=== PATIENT | female | born 2000 | race Caucasian/White ===

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

== ENCOUNTER 2019-01-14 22:06 | Emergency (ER) | payer MEDICAID ==
[~2019-01-14] VITALS: Ht 167.7 cm; Wt 83.5 kg
[2019-01-14] MEDS ORDERED: KETOROLAC 30 MG/ML VIAL IVP STA (22:27)
[2019-01-14 22:55] LABS: BILIRUBIN,URINE NEGATIVE (NEGATIVE); CLARITY,URINE SL CLOUDY; COLOR,URINE YELLOW; GLUCOSE, URINE (UA) NEGATIVE (NEGATIVE); KETONES,URINE NEGATIVE (NEGATIVE); LEUKOCYTE ESTERASE ,URINE NEGATIVE (NEGATIVE); NITRITE,URINE NEGATIVE (NEGATIVE); PROTEIN,URINE NEGATIVE (NEGATIVE)
[2019-01-14 23:03] LABS: BASOPHILS % (AUTO) 0 % (0-10); EOSINOPHILS # (AUTO) 0.1 10^3/uL (0.0-0.3); EOSINOPHILS % (AUTO) 3 % (0-10); HEMATOCRIT 38 % (35-52); HEMOGLOBIN 13.2 G/DL (11.5-16.0); LYMPHOCYTES # (AUTO) 1.7 X 10^3 (1.0-4.0); LYMPHOCYTES % (AUTO) 33 % (12-44); MEAN CORPUSCULAR HEMOGLOBIN 28 PG (25-34); MEAN CORPUSCULAR HGB CONC 35 G/DL (32-36); MEAN CORPUSCULAR VOLUME 81 FL (80-99); MEAN PLATELET VOLUME 10.1 FL (7.4-10.4); MONOCYTES # (AUTO) 0.3 X 10^3 (0.0-1.0); MONOCYTES % (AUTO) 7 % (0-12); NEUTROPHILS % (AUTO) 58 % (42-75); PLATELET COUNT 230 10^3/uL (130-400); RED CELL DISTRIBUTION WIDTH 13.6 % (10.0-14.5); WHITE BLOOD COUNT 5.1 10^3/uL (4.3-11.0)
[2019-01-14 23:21] LABS: ALANINE AMINOTRANSFERASE 14 U/L (0-55); ALBUMIN 4.5 GM/DL (3.2-4.5); ALKALINE PHOSPHATASE 88 U/L (40-136); BILIRUBIN,TOTAL 0.2 MG/DL (0.1-1.0); BUN/CREATININE RATIO 10; CALCIUM 9.6 MG/DL (8.5-10.1); CARBON DIOXIDE 24 MMOL/L (21-32); CHLORIDE 107 MMOL/L (98-107); CREATININE SERUM 0.69 MG/DL (0.60-1.30); GFR ESTIMATED > 60; GLUCOSE 81 MG/DL (70-105); POTASSIUM 4.1 MMOL/L (3.6-5.0); SODIUM 143 MMOL/L (135-145); TOTAL PROTEIN 7.7 GM/DL (6.4-8.2)
[2019-01-14 23:23] LABS: RBC,URINE RARE /HPF
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
[2019-01-14 23:24] LABS: BACTERIA,URINE MODERATE /HPF; SQUAMOUS EPITHELIAL CELL,UR 0-2 /HPF
== END 2019-01-14 23:51 | disposition home or self-care (01) ==
LOC: EDUNIT# 22:06 → ER 22:08
DX: N93.9 Abnormal uterine and vaginal bleeding, unspecified (principal); J45.909 Unspecified asthma, uncomplicated; G40.909 Epilepsy, unspecified, not intractable, without status epilepticus; F41.9 Anxiety disorder, unspecified; F31.9 Bipolar disorder, unspecified; K21.9 Gastro-esophageal reflux disease without esophagitis; F17.200 Nicotine dependence, unspecified, uncomplicated; Z87.440 Personal history of urinary (tract) infections; Z88.0 Allergy status to penicillin; Z88.1 Allergy status to other antibiotic agents; Z88.6 Allergy status to analgesic agent; Z88.5 Allergy status to narcotic agent; Z88.8 Allergy status to other drugs, medicaments and biological substances; Z82.49 Family history of ischemic heart disease and other diseases of the circulatory system
CPT/HCPCS: 36415; 80053; 81000; 84703; 85025; 87077; 87088; 87186

== ENCOUNTER 2019-02-04 05:30 | Outpatient (CLI) | payer MEDICAID ==
[~2019-02-04] VITALS: Ht 170 cm; Wt 81.0 kg
[~2019-02-04 05:30] MED LIST changes: -ACET-77 PO; +ACET-78 PO
[2019-02-04] MEDS ORDERED: NORG1TAB14 PO (15:49)
== END 2019-02-04 15:59 | disposition home or self-care (01) ==
LOC: PREOP 05:30
PROVIDERS: ATTEND Otolaryngology Otolaryngology/Facial Plastic Surgery
DX: Z01.818 Encounter for other preprocedural examination (principal)

== ENCOUNTER 2019-02-15 07:26 | Day surgery (SDC) | payer MEDICAID ==
[2019-02-15] VITALS (10 sets, daily range): BP systolic 106–125; BP diastolic 68–85
[~2019-02-15] VITALS: Ht 170.2 cm; Wt 81.8 kg
[~2019-02-15 07:26] MED LIST changes: +ACET-77 PO; -ACET-78 PO; +NORG1TAB14 PO
[2019-02-15 08:07] LABS: BASOPHILS % (AUTO) 0 % (0-10); EOSINOPHILS # (AUTO) 0.1 10^3/uL (0.0-0.3); EOSINOPHILS % (AUTO) 2 % (0-10); HEMATOCRIT 35 % (35-52); HEMOGLOBIN 12.3 G/DL (11.5-16.0); LYMPHOCYTES # (AUTO) 1.8 X 10^3 (1.0-4.0); LYMPHOCYTES % (AUTO) 36 % (12-44); MEAN CORPUSCULAR HEMOGLOBIN 29 PG (25-34); MEAN CORPUSCULAR HGB CONC 35 G/DL (32-36); MEAN CORPUSCULAR VOLUME 82 FL (80-99); MEAN PLATELET VOLUME 10.6 FL (7.4-10.4); MONOCYTES # (AUTO) 0.3 X 10^3 (0.0-1.0); MONOCYTES % (AUTO) 6 % (0-12); NEUTROPHILS # (AUTO) 2.8 X 10^3 (1.8-7.8); NEUTROPHILS % (AUTO) 56 % (42-75); PLATELET COUNT 185 10^3/uL (130-400); RED CELL DISTRIBUTION WIDTH 13.3 % (10.0-14.5); WHITE BLOOD COUNT 5.1 10^3/uL (4.3-11.0)
[2019-02-15] MEDS ORDERED: LACTATED RINGERS 1,000 ML IV PRN (08:17)
[2019-02-15] MEDS ORDERED: SEVOFLURANE (ULTANE) 15 ML INHAL SOLN ONE ×3 (09:40→09:44)
[2019-02-15] MEDS ORDERED: MIDAZOLAM 2 MG/2 ML (VERSED) VIAL ONE (09:40)
[2019-02-15] MEDS ORDERED: DEXAMETHASONE 10 MG/ML (DECADRON) 1 ML VIAL ONE (09:40)
[2019-02-15] MEDS ORDERED: ONDANSETRON 4 MG/2 ML (SDV) Z0FRAN ONE (09:40)
[2019-02-15] MEDS ORDERED: fentaNYL INJECTION 100 MCG/2 ML AMP ONE (09:40)
[2019-02-15] MEDS ORDERED: proPOfol 200 MG/20 ML (DIPRIVAN) VIAL IV ONE (09:40)
--- NOTE | 2019-02-15 09:42 | Progress Note-Pre Operative ---
Pre-Operative Progress Note H&P Reviewed The H&P was reviewed, patient examined and no changes noted. Date Seen by Provider: Feb 15, 2019 Time Seen by Provider: : Date H&P Reviewed: Feb 15, 2019 Time H&P Reviewed: :30 Pre-Operative Diagnosis: Tonsillar Hypertrophy, Left MELL, possible right TERRI PARDO MD Feb 15, 2019 09:42
[2019-02-15] MEDS ORDERED: ROCURONIUM 50 MG/5 ML (ZEMURON) VIAL IV ONE (09:44)
[2019-02-15] MEDS ORDERED: GLYCOPYRROLATE 0.2 MG/ML (ROBINUL) 2 ML VIAL ONE (10:17)
[2019-02-15] MEDS ORDERED: NEOSTIGMINE 3 MG/3 ML VIAL ONE (10:17)
[2019-02-15] MEDS ORDERED: NS IV 1000 ML 1,000 ML IV SCH (10:29)
--- NOTE | 2019-02-15 10:29 | Progress Note-Post Operative ---
Post-Operative Progess Note Surgeon (s)/Patient Partner (s) Surgeon TERRI PARDO MD Patient Partner n/a Pre-Operative Diagnosis Tonsillar Hypertrophy, Left MELL, possible right Post-Operative Diagnosis same Post-Op Procedure Note Date of Procedure: Feb 15, 2019 Name of Procedure Performed: T/A, BMT Description & Findings Description and Findings: n/a Anesthesia Type get Estimated Blood Loss minimal Packing none. Specimen(s) collected/removed tonsils TERRI PARDO MD Feb 15, 2019 10:29
[2019-02-15] MEDS ORDERED: oxyCODONE 5 MG/5 ML ORAL SOLN (roxiCODONE) 5 ML UDC PO PRN (10:30)
[2019-02-15] MEDS ORDERED: APAP 325 MG/10.15 ML LIQ (TYLENOL) UDC PO PRN (10:30)
[2019-02-15] MEDS ORDERED: morphine INJ 10 MG/ML 1ML (SYR OR VIAL) IVP ONE (10:45)
[2019-02-15] MEDS ORDERED: ONDANSETRON 4 MG/2 ML (SDV) Z0FRAN IVP PRN (10:45)
[2019-02-15] MEDS ORDERED: HYDROmorphone 2 MG/ML VIAL (DILAUDID) IV ONE (10:45)
[2019-02-15] MEDS ORDERED: RT-ALBUTEROL SULF 2.5 MG/3 ML PRE-MIX VIAL INH ONE (10:45)
--- NOTE | 2019-02-15 11:30 | NUR ---
PT GIVEN 650MG PO OF TYLENOL DUE TO FEELING "ON THE VERGE OF NAUSEATED". PT DID NOT WANT TO TAKE FULL DOSAGE IN CASE VOMITING THEN THEN ABLE TO TAKE MORE.
[2019-02-15] MEDS ORDERED: TETRACAINESUCKERS MT (12:21)
[2019-02-15] MEDS ORDERED: CIPR5DRO EACH EAR (12:21)
[2019-02-15] MEDS ORDERED: DEXAINTSOL PO (12:21)
[2019-02-15] MEDS ORDERED: AZIT200S PO (12:26)
[2019-02-15] MEDS ORDERED: OXYC5SOL19 PO (12:26)
--- NOTE | 2019-02-15 15:20 | Anesthesia-General Post-Op ---
General Patient Condition Mental Status/LOC: Same as Preop Cardiovascular: Satisfactory Nausea/Vomiting: Absent Respiratory: Satisfactory Pain: Controlled Complications: Absent Post Op Complications Complications None Follow Up Care/Instructions Patient Instructions None needed. Anesthesia/Patient Condition Patient Condition Patient was seen after the procedure and she was doing well, no complaints, stable vital signs, no apparent adverse anesthesia problems. PEDRO LUIS MILES DO Feb 15, 2019 15:20
== END 2019-02-15 13:30 | disposition home or self-care (01) ==
LOC: SDC 07:26
PROVIDERS: ATTEND Otolaryngology Otolaryngology/Facial Plastic Surgery
DX: H65.23 Chronic serous otitis media, bilateral (principal); J35.3 Hypertrophy of tonsils with hypertrophy of adenoids; J03.91 Acute recurrent tonsillitis, unspecified; F32.9 Major depressive disorder, single episode, unspecified; F41.9 Anxiety disorder, unspecified; G43.909 Migraine, unspecified, not intractable, without status migrainosus; J45.909 Unspecified asthma, uncomplicated; Z88.0 Allergy status to penicillin; Z88.6 Allergy status to analgesic agent; Z88.5 Allergy status to narcotic agent; Z88.1 Allergy status to other antibiotic agents; Z88.8 Allergy status to other drugs, medicaments and biological substances; Z88.3 Allergy status to other anti-infective agents; Z83.3 Family history of diabetes mellitus; Z82.49 Family history of ischemic heart disease and other diseases of the circulatory system; Z87.891 Personal history of nicotine dependence; Z79.899 Other long term (current) drug therapy; Z90.49 Acquired absence of other specified parts of digestive tract
CPT/HCPCS: 36415; 84703; 85025; 87081

== ENCOUNTER 2019-02-23 22:05 | Emergency (ER) | payer MEDICAID ==
[~2019-02-23] VITALS: Ht 167.7 cm; Wt 78.0 kg
[~2019-02-23 22:05] MED LIST changes: +AZIT200S PO; +DEXAINTSOL PO; +OXYC5SOL19 PO; +TETRACAINESUCKERS MT
[2019-02-23] MEDS ORDERED: ONDANSETRON 4 MG (ZOFRAN) ORAL DISSOLVE TAB SL ONE (22:30)
[2019-02-23] MEDS ORDERED: NYSTATIN ORAL SUSP 5 ML UDC PO ONE (22:30)
[2019-02-23] MEDS ORDERED: NYST1000 PO (22:55)
--- NOTE | 2019-02-23 22:55 | ED EENT ---
History of Present Illness General Chief Complaint: Oral/Throat Problems Stated Complaint: POST OP BLEEDING - TONSIL REMOVAL 02/15 Nursing Triage Note: c/o post op tonsillectomy bleeding. no bleeding at this time. Source: patient Exam Limitations: no limitations History of Present Illness Date Seen by Provider: Feb 23, 2019 Time Seen by Provider: 22:13 Initial Comments This 18-year-old young lady presents to the emergency room with an episode of vomiting with a small amount of blood after having tonsillectomy by Dr. Velasquez February 15. She also has complained of throat burning and difficulty eating. She has lost a significant amount of weight since tonsillectomy. She has no active bleeding at this time. She has thrush on her cheeks, tongue, and throat. Patient reports compliance with her antibiotics and steroids after surgery. Allergies and Home Medications Allergies Coded Allergies: Penicillins (Verified Allergy, Severe, anaphylactic, 01/14/19) amoxicillin (Verified Allergy, Severe, anaphalytic, 01/14/19) cephalexin (Verified Allergy, Severe, anaphylatic , 01/14/19) cetirizine (Verified Allergy, Severe, seizures, 02/04/19) codeine (Verified Allergy, Severe, vomitting, chest pain, numbness, blurry vision, SOB, 02/04/19) divalproex sodium (Verified Allergy, Severe, Facial drooping, drooling, 02/04/19) fexofenadine (Verified Allergy, Severe, SEIZURES, 01/14/19) loratadine (Verified Allergy, Severe, seizures, 02/04/19) phenobarbital (Verified Allergy, Severe, Rash, vomitting, Seizures, 02/04/19) aspirin (Verified Allergy, Mild, hives, rash, 02/04/19) carbamazepine (Verified Allergy, Mild, hyperactivity, 02/04/19) cefaclor (Verified Allergy, Mild, vomitting, 02/04/19) povidone-iodine (Verified Allergy, Mild, rash, hives, 02/04/19) Home Medications Albuterol Sulfate 1 Puff Puff, 2 PUFF IH Q4H PRN for SHORTNESS OF BREATH, (Reported) Azithromycin 200 Mg/5 Ml Susp.recon, 200 MG PO DAILY Prescribed by: RODNEY CLARKE on 02/15/19 1226 Ciprofloxacin HCl 5 Ml Drops, 3 DROPS EACH EAR BID 3 Drops Each Ear Prescribed by: RODNEY CLARKE on 02/15/19 1221 Dexamethasone 1 Mg/1 Ml Amina, 2 TSP PO DAILY PRN for PAIN Mix 4MG/2.5CC water Prescribed by: RODNEY CLARKE on 02/15/19 1221 Norgestimate-Ethinyl Estradiol 1 Each Tablet, 1 EACH PO DAILY, (Reported) Nystatin 100,000 Unit/1 Ml Oral.susp, 5 ML PO Q6H Swish for one minute before swallowing. Continue use 48 hours after symptoms resolve. Prescribed by: FARHAD MIRAMONTES on 02/23/19 2255 Ondansetron 4 Mg Tab.rapdis, 4 MG SL Q4H Prescribed by: FARHAD MIRAMONTES on 02/23/19 2300 Oxcarbazepine 600 Mg Tablet, 600 MG PO BID, (Reported) Oxycodone HCl 5 Mg/5 Ml Solution, 1-2 TSP PO Q4H PRN for PAIN-MODERATE (5-7) Prescribed by: RODNEY CLARKE on 02/15/19 1226 Tetracaine Sucker Ea, 1 EA MT UD PRN for PAIN Tetracain Suckers These suckers are custom made and require a prescription. Moisten the sucker first and then suck on it gently as far back in the mouth as possible for 2-3 days. You can repeadt it in about an hour. This will take the edge off but not completely numb the throat. Prescribed by: RODNEY CLARKE on 02/15/19 1221 Patient Home Medication List Home Medication List Reviewed: Yes Review of Systems Review of Systems Constitutional: see HPI, weight loss Eyes: No Symptoms Reported Ears: No Symptoms Reported Nose: no symptoms reported Mouth: see HPI Throat: see HPI Respiratory: no symptoms reported Cardiovascular: no symptoms reported Gastrointestinal: see HPI : No Musculoskeletal: no symptoms reported Skin: no symptoms reported Neurological: No Symptoms Reported Hematologic/Lymphatic: No Symptoms Reported Past Lsoqjea-Acuijm-Diwoyg Hx Patient Social History Alcohol Use: Denies Use Recreational Drug Use: No Smoking Status: Current Everyday Smoker Type Used: Cigarettes 2nd Hand Smoke Exposure: Yes Recent Foreign Travel: No Contact w/Someone Who Travel: No Recent Infectious Disease Expo: No Recent Hopitalizations: No Physical Abuse: No Sexual Abuse: No Mistreated: No Fear: No Immunizations Up To Date Tetanus Booster (TDap): Unknown PED Vaccines UTD: Yes Seasonal Allergies Seasonal Allergies: No Past Medical History Surgeries: Yes (BMT) Adenoidectomy, Gallbladder, Tonsillectomy Respiratory: Yes Asthma Cardiac: Yes Irregular Heartbeat Neurological: Yes Headaches /Migraines, Seizure Disorder Reproductive Disorders: No Female Reproductive Disorders: Menstrual Problems Sexually Transmitted Disease: No HIV/AIDS: No Genitourinary: No UTI-Chronic Gastrointestinal: Yes Chronic Diarrhea Musculoskeletal: Yes Back Injury, Chronic Back Pain Endocrine: No HEENT: Yes Chronic Ear Infection, Tonsilitis Loss of Vision: Denies Hearing Impairment: Denies Cancer: No Psychosocial: Yes Anxiety, Bipolar, Depression Integumentary: Yes Eczema Blood Disorders: No Adverse Reaction/Blood Tranf: No Family Medical History Arthritis 19 MOTHER Asthma 19 MOTHER FH: diverticulitis 19 MOTHER FHx: supraventricular tachycardia 19 MOTHER Hypertension 19 MOTHER Physical Exam Vital Signs Vital Signs - First Documented 02/23/19 02/23/19 22:10 22:55 Temp 36.3 Pulse 99 Resp 18 B/P (MAP) 99/81 Pulse Ox 99 O2 Delivery Room Air Height, Weight, BMI Height: 5'7.00" Weight: 153lbs. 8.0oz. 69.233077sw; 27.00 BMI Method:Stated General Appearance: WD/WN, no apparent distress Ears: bilateral ear auricle normal, bilateral ear canal normal, bilateral ear TM normal Nose: normal inspection Mouth/Throat: other (typical postoperative appearance of the pharynx. There are patches of thrush on the cheeks, tongue, and throat. No active bleeding) Neck: normal inspection Cardiovascular: regular rate, rhythm, no edema, no murmur Respiratory: lungs clear, normal breath sounds, no respiratory distress Neurologic/Psychiatric: time motion analyst II-XII nml as tested, no motor/sensory deficits, alert, normal mood/affect, oriented x 3 Skin: normal color, warm/dry Progress/Results/Core Measures Results/Orders My Orders Orders - FARHAD GILMORE MD Ondansetron Oral Dissolve Tab (Zofran (02/23/19 22:30) Nystatin Oral Suspension (Mycostatin O (02/23/19 22:30) Medications Given in ED Current Medications Medications Dose Ordered Sig/She Route Start Time Stop Time Status Last Admin Dose Admin Nystatin 5 ml ONCE ONCE PO 02/23/19 22:30 02/23/19 22:31 DC 02/23/19 22:23 5 ML Ondansetron HCl 8 mg ONCE ONCE SL 02/23/19 22:30 02/23/19 22:31 DC 02/23/19 22:23 8 MG Vital Signs/I&O 02/23/19 02/23/19 22:10 22:55 Temp 36.3 36.3 Pulse 99 99 Resp 18 18 B/P (MAP) 99/81 Pulse Ox 99 O2 Delivery Room Air Room Air Progress Progress Note : Progress Note Patient received a dose of Zofran and a nystatin swish and swallow. She was already feeling much improved by the time of discharge. Departure Impression Primary Impression: Thrush Additional Impression: Vomiting Qualified Codes: R11.11 - Vomiting without nausea Disposition: HOME, SELF-CARE Condition: Improved Departure-Patient Inst. Decision time for Depature: 22:51 Referrals: [facility] (PCP) Primary Care Physician YAMILET WALKER APRN (Family) Primary Care Physician Patient Instructions: Thrush Add. Discharge Instructions: Follow postoperative instructions provided by Dr. Velasquez. Use the nystatin swish and swallow as prescribed. Continue until 48 hours after symptoms of thrush have resolved. Sanitize or replace your toothbrush and any other oral instruments before your last dose of nystatin to help prevent reinfection. Contact Dr. Velasquez with any further problems or concerns. All discharge instructions reviewed with patient and/or family. Voiced understanding. Scripts Ondansetron (Ondansetron Odt) 4 Mg Tab.rapdis 4 MG SL Q4H, #10 TAB Prov: FARHAD GILMORE MD 02/23/19 Nystatin (Nystatin) 100,000 Unit/1 Ml Oral.susp 5 ML PO Q6H, #120 ML Swish for one minute before swallowing. Continue use 48 hours after symptoms resolve. Prov: FARHAD GILMORE MD 02/23/19 Copy Copies To 1: TERRI VELASQUEZ MD, JOSHUA T MD Feb 23, 2019 22:55
[2019-02-23] MEDS ORDERED: ONDA4TAB11 SL (23:00)
== END 2019-02-23 22:56 | disposition home or self-care (01) ==
LOC: EDUNIT# 22:05 → ER 22:08
DX: B37.89 Other sites of candidiasis (principal); R11.10 Vomiting, unspecified; J45.909 Unspecified asthma, uncomplicated; G43.909 Migraine, unspecified, not intractable, without status migrainosus; G40.909 Epilepsy, unspecified, not intractable, without status epilepticus; F41.9 Anxiety disorder, unspecified; F17.210 Nicotine dependence, cigarettes, uncomplicated; Z87.440 Personal history of urinary (tract) infections; Z90.89 Acquired absence of other organs; Z90.49 Acquired absence of other specified parts of digestive tract; Z88.0 Allergy status to penicillin; Z88.1 Allergy status to other antibiotic agents; Z88.5 Allergy status to narcotic agent; Z88.6 Allergy status to analgesic agent; Z88.8 Allergy status to other drugs, medicaments and biological substances; Z82.49 Family history of ischemic heart disease and other diseases of the circulatory system
CPT/HCPCS: 99282

== ENCOUNTER 2019-04-03 04:30 | Emergency (ER) | payer MEDICAID ==
[~2019-04-03] VITALS: Ht 170 cm; Wt 76.9 kg
[~2019-04-03 04:30] MED LIST changes: -ACET-77 PO; +ACET-78 PO; +NYST1000 PO; +ONDA4TAB11 SL
[2019-04-03] MEDS ORDERED: TRAM-42 PO (05:33)
--- NOTE | 2019-04-03 05:33 | ED Upper Extremity ---
General Chief Complaint: Upper Extremity Stated Complaint: RT WRIST PAIN Nursing Triage Note: AMBULATORY TO ED ROOM 6 WITH C/O RIGHT WRIST PAIN AFTER SLIPPING ON ICE ON METAL GRATE ON ROAD WHILE CROSSING STRE[address]. Source: patient History of Present Illness Date Seen by Provider: Apr 03, 2019 Time Seen by Provider: 04:43 Initial Comments PT ARRIVES WITH 2 MALES C/O RIGHT WRIST PAIN STATES SHE WAS RUNNING ACROSS THE STREET FROM [facility] TO [employer], AND SLIPPED ON THE ICE AND LANDED ON OUTSTRETCHED RIGHT HAND OCCURRED AT 0330 THIS AM--STATES SHE "DECIDED TO GET SOME FOOD" ( SNOW, ICE, FREEZING RAIN OUTSIDE ) DID NOT HIT HEAD AND NO OTHER INJURIES NO PARESTHESIAS OR MOTOR DEFICITS PT IS RIGHT HANDED NO PRIOR INJURIES TO THIS WRIST LMP 3 WEEKS AGO, NORMAL. ON OCP'S. NO MISSED DOSES PCP: [facility] Allergies and Home Medications Allergies Coded Allergies: Penicillins (Verified Allergy, Severe, anaphylactic, 01/14/19) amoxicillin (Verified Allergy, Severe, anaphalytic, 01/14/19) cephalexin (Verified Allergy, Severe, anaphylatic , 01/14/19) cetirizine (Verified Allergy, Severe, seizures, 02/04/19) codeine (Verified Allergy, Severe, vomitting, chest pain, numbness, blurry vision, SOB, 02/04/19) divalproex sodium (Verified Allergy, Severe, Facial drooping, drooling, 02/04/19) fexofenadine (Verified Allergy, Severe, SEIZURES, 01/14/19) loratadine (Verified Allergy, Severe, seizures, 02/04/19) phenobarbital (Verified Allergy, Severe, Rash, vomitting, Seizures, 02/04/19) aspirin (Verified Allergy, Mild, hives, rash, 02/04/19) carbamazepine (Verified Allergy, Mild, hyperactivity, 02/04/19) cefaclor (Verified Allergy, Mild, vomitting, 02/04/19) povidone-iodine (Verified Allergy, Mild, rash, hives, 02/04/19) Home Medications Albuterol Sulfate 1 Puff Puff, 2 PUFF IH Q4H PRN for SHORTNESS OF BREATH, (Reported) Azithromycin 200 Mg/5 Ml Susp.recon, 200 MG PO DAILY Prescribed by: RODNEY CLARKE on 02/15/19 1226 Ciprofloxacin HCl 5 Ml Drops, 3 DROPS EACH EAR BID 3 Drops Each Ear Prescribed by: RODNEY CLARKE on 02/15/19 1221 Dexamethasone 1 Mg/1 Ml Amina, 2 TSP PO DAILY PRN for PAIN Mix 4MG/2.5CC water Prescribed by: RODNEY CLARKE on 02/15/19 1221 Norgestimate-Ethinyl Estradiol 1 Each Tablet, 1 EACH PO DAILY, (Reported) Nystatin 100,000 Unit/1 Ml Oral.susp, 5 ML PO Q6H Swish for one minute before swallowing. Continue use 48 hours after symptoms resolve. Prescribed by: FARHAD MIRAMONTES on 02/23/19 2255 Ondansetron 4 Mg Tab.rapdis, 4 MG SL Q4H Prescribed by: FARHAD MIRAMONTES on 02/23/19 2300 Oxcarbazepine 600 Mg Tablet, 600 MG PO BID, (Reported) Oxycodone HCl 5 Mg/5 Ml Solution, 1-2 TSP PO Q4H PRN for PAIN-MODERATE (5-7) Prescribed by: RODNEY CLARKE on 02/15/19 1226 Tetracaine Sucker Ea, 1 EA MT UD PRN for PAIN Tetracain Suckers These suckers are custom made and require a prescription. Moisten the sucker first and then suck on it gently as far back in the mouth as possible for 2-3 days. You can repeadt it in about an hour. This will take the edge off but not completely numb the throat. Prescribed by: RODNEY CLARKE on 02/15/19 1221 Tramadol HCl 50 Mg Tablet, 50 MG PO Q4H PRN for PAIN-MODERATE Prescribed by: DAVE THURMAN on 04/03/19 0558 Patient Home Medication List Home Medication List Reviewed: Yes Review of Systems Constitutional: no symptoms reported : No LMP: Mar 18, 2019 Control/STD Prophylaxis: BC Pills Musculoskeletal: see HPI Skin: no symptoms reported Psychiatric/Neurological: No Symptoms Reported Past Jowlvio-Aaeygd-Mrbuby Hx Patient Social History Alcohol Use: Denies Use Recreational Drug Use: No Smoking Status: Current Everyday Smoker Type Used: Cigarettes 2nd Hand Smoke Exposure: Yes Recent Foreign Travel: No Contact w/Someone Who Travel: No Recent Infectious Disease Expo: No Recent Hopitalizations: No Ebola Symptoms: Denies Symptoms Listed Physical Abuse: No Sexual Abuse: No Mistreated: No Fear: No Immunizations Up To Date Tetanus Booster (TDap): Unknown PED Vaccines UTD: Yes Seasonal Allergies Seasonal Allergies: No Past Medical History Surgeries: Yes (TUBES IN EARS-"TOO MANY TO COUNT") Adenoidectomy, Ear Surgery, Gallbladder, Tonsillectomy Respiratory: Yes Asthma Cardiac: Yes Irregular Heartbeat Neurological: Yes Headaches /Migraines, Seizure Disorder Reproductive Disorders: Yes Female Reproductive Disorders: Menstrual Problems Sexually Transmitted Disease: No HIV/AIDS: No Genitourinary: Yes UTI-Chronic Gastrointestinal: Yes Chronic Diarrhea Musculoskeletal: Yes Back Injury, Chronic Back Pain Endocrine: No HEENT: Yes (MULTIPLE SETS OF BMT'S; T&A) Chronic Ear Infection, Tonsilitis Loss of Vision: Denies Hearing Impairment: Denies Cancer: No Psychosocial: Yes Anxiety, Bipolar, Depression Integumentary: Yes Eczema Blood Disorders: No Adverse Reaction/Blood Tranf: No Family Medical History Arthritis 19 MOTHER Asthma 19 MOTHER FH: diverticulitis 19 MOTHER FHx: supraventricular tachycardia 19 MOTHER Hypertension 19 MOTHER Physical Exam Vital Signs Vital Signs - First Documented 04/03/19 04:38 Temp 37.1 Pulse 110 Resp 18 B/P (MAP) 122/67 O2 Delivery Room Air Capillary Refill : Height, Weight, BMI Height: 5'7.00" Weight: 153lbs. 8.0oz. [id number]; 26.00 BMI Method:Stated General Appearance: WD/WN, no apparent distress Shoulder: normal inspection Elbow/Forearm: normal inspection Wrist: Yes bone tenderness; No ecchymosis; Yes limited ROM, Yes pain, Yes soft tissue tenderness, Yes swelling (LOCALIZED SWELLING OVER DORSAL ASPECT OF RIGHT WRIST. 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 II-XII nml as tested, no motor/sensory deficits, alert, normal mood/affect, oriented x 3 Skin: normal color, warm/dry Procedures/Interventions Splinting and Joint Reduction : Kai wrap: Yes Splints: Colles Wrist Progress/Results/Core Measures Results/Orders My Orders Orders - DAVE THURMAN DO Wrist, Right, 3 Views Or More (04/03/19 04:49) Ed Ortho/Other Supplies Order (04/03/19 05:29) Vital Signs/I&O 04/03/19 04:38 Temp 37.1 Pulse 110 Resp 18 B/P (MAP) 122/67 O2 Delivery Room Air Diagnostic Imaging Comments XRAYS --BUCKLE FRACTURE OF DISTAL RADIUS, PENDING RADIOLOGIST REVIEW Reviewed: Reviewed by Me Departure Impression Primary Impression: Buckle fracture of distal end of right radius Disposition: HOME, SELF-CARE Condition: Stable Departure-Patient Inst. Referrals: [facility]/ (PCP) Primary Care Physician YAMILET WALKER APRN (Family) Primary Care Physician TERRI ESCOBAR MD Patient Instructions: SPLINT CARE, Wrist Fracture (DC) Add. Discharge Instructions: WEAR SPLINT AT ALL TIMES ICE TO AREA AT 20 MINUTE INTERVALS TYLENOL NEEDED FOR PAIN FOLLOW UP WITH DR. ESCOBAR THIS WEEK FOR FURTHER CARE All discharge instructions reviewed with patient and/or family. Voiced understanding. Scripts Tramadol HCl (Ultram) 50 Mg Tablet 50 MG PO Q4H PRN for PAIN-MODERATE for 3 Days, TAB Prov: DAVE THURMAN DO 04/03/19 DAVE THURMAN DO Apr 03, 2019 05:33
--- NOTE | 2019-04-03 06:50 | Diagnostic Imaging Report ---
INDICATION: Fall. Right wrist pain. FINDINGS: 3 views. There are no fractures or dislocation. Articulating surfaces are smooth throughout. No evidence of osteonecrosis. IMPRESSION: Normal right wrist. Dictated by: Dictated on workstation # [id number]
--- NOTE | 2019-04-04 16:36 | NUR ---
CALLED TO SPEAK WITH PT. REGARDING RADIOLOGY REPORT FOR XRAY OF R-ARM. PHONE NUMBER WAS NOT PT'S BUT [id number] WHO IS LISTED THE CONTACT. [id number] STATES PT. DOES NOT HAVE A PHONE.
== END 2019-04-03 05:52 | disposition home or self-care (01) ==
LOC: EDUNIT# 04:30 → ER 04:33
DX: S52.521A Torus fracture of lower end of right radius, initial encounter for closed fracture (principal); J45.909 Unspecified asthma, uncomplicated; G40.909 Epilepsy, unspecified, not intractable, without status epilepticus; F31.9 Bipolar disorder, unspecified; F17.210 Nicotine dependence, cigarettes, uncomplicated; Z88.0 Allergy status to penicillin; Z88.1 Allergy status to other antibiotic agents; Z88.5 Allergy status to narcotic agent; Z88.6 Allergy status to analgesic agent; Z88.8 Allergy status to other drugs, medicaments and biological substances; Z79.52 Long term (current) use of systemic steroids; Z82.49 Family history of ischemic heart disease and other diseases of the circulatory system; W00.9XXA Unspecified fall due to ice and snow, initial encounter; Y92.410 Unspecified street and highway as the place of occurrence of the external cause
CPT/HCPCS: 73110

== ENCOUNTER 2019-07-20 12:38 | Emergency (ER) | payer MEDICAID ==
[~2019-07-20] VITALS: Ht 170 cm; Wt 82.0 kg
[~2019-07-20 12:38] MED LIST changes: +TRAM-42 PO
--- NOTE | 2019-07-20 13:13 | ED General ---
General Chief Complaint: General Problems/Pain Stated Complaint: VOMITING Nursing Triage Note: Patient reports taking a test at home and having a faint positive and going to [facility] and having the same. Wants blood drawn to know if she is Source of Information: Patient Exam Limitations: No Limitations History of Present Illness Date Seen by Provider: July 20, 2019 Time Seen by Provider: 13:09 Initial Comments To ER with intermittent nausea for a few days, no abdominal pain no vaginal bleeding. All took a test at home which was "faint positive". Timing/Duration: 1-2 Days Severity: Moderate Associated Systoms: Nausea/Vomiting Allergies and Home Medications Allergies Coded Allergies: Penicillins (Verified Allergy, Severe, anaphylactic, 01/14/19) amoxicillin (Verified Allergy, Severe, anaphalytic, 01/14/19) cephalexin (Verified Allergy, Severe, anaphylatic , 01/14/19) cetirizine (Verified Allergy, Severe, seizures, 02/04/19) codeine (Verified Allergy, Severe, vomitting, chest pain, numbness, blurry vision, SOB, 02/04/19) divalproex sodium (Verified Allergy, Severe, Facial drooping, drooling, 02/04/19) fexofenadine (Verified Allergy, Severe, SEIZURES, 01/14/19) loratadine (Verified Allergy, Severe, seizures, 02/04/19) phenobarbital (Verified Allergy, Severe, Rash, vomitting, Seizures, 02/04/19) aspirin (Verified Allergy, Mild, hives, rash, 02/04/19) carbamazepine (Verified Allergy, Mild, hyperactivity, 02/04/19) cefaclor (Verified Allergy, Mild, vomitting, 02/04/19) povidone-iodine (Verified Allergy, Mild, rash, hives, 02/04/19) tramadol (Verified Allergy, Unknown, 04/03/19) Home Medications Albuterol Sulfate 1 Puff Puff, 2 PUFF IH Q4H PRN for SHORTNESS OF BREATH, (Reported) Azithromycin 200 Mg/5 Ml Susp.recon, 200 MG PO DAILY Prescribed by: RODNEY CLARKE on 02/15/19 1226 Ciprofloxacin HCl 5 Ml Drops, 3 DROPS EACH EAR BID 3 Drops Each Ear Prescribed by: RODNEY CLARKE on 02/15/19 1221 Dexamethasone 1 Mg/1 Ml Amina, 2 TSP PO DAILY PRN for PAIN Mix 4MG/2.5CC water Prescribed by: RODNEY CLARKE on 02/15/19 1221 Norgestimate-Ethinyl Estradiol 1 Each Tablet, 1 EACH PO DAILY, (Reported) Nystatin 100,000 Unit/1 Ml Oral.susp, 5 ML PO Q6H Swish for one minute before swallowing. Continue use 48 hours after symptoms resolve. Prescribed by: FARHAD MIRAMONTES on 02/23/19 2255 Ondansetron 4 Mg Tab.rapdis, 4 MG SL Q4H Prescribed by: FARHAD MIRAMONTES on 02/23/19 2300 Oxcarbazepine 600 Mg Tablet, 600 MG PO BID, (Reported) Oxycodone HCl 5 Mg/5 Ml Solution, 1-2 TSP PO Q4H PRN for PAIN-MODERATE (5-7) Prescribed by: RODNEY CLARKE on 02/15/19 1226 Tetracaine Sucker Ea, 1 EA MT UD PRN for PAIN Tetracain Suckers These suckers are custom made and require a prescription. Moisten the sucker first and then suck on it gently as far back in the mouth as possible for 2-3 days. You can repeadt it in about an hour. This will take the edge off but not completely numb the throat. Prescribed by: RODNEY CLARKE on 02/15/19 1221 Tramadol HCl 50 Mg Tablet, 50 MG PO Q4H PRN for PAIN-MODERATE Prescribed by: DAVE THURMAN on 04/03/19 5646 Patient Home Medication List Home Medication List Reviewed: Yes Review of Systems Review of Systems Constitutional: see HPI EENTM: see HPI Respiratory: no symptoms reported Cardiovascular: no symptoms reported Gastrointestinal: nausea, vomiting Genitourinary: no symptoms reported Musculoskeletal: see HPI Skin: no symptoms reported Psychiatric/Neurological: No Symptoms Reported Hematologic/Lymphatic: No Symptoms Reported Past Pfgkypw-Soxawj-Qcbbxv Hx Patient Social History Alcohol Use: Denies Use Recreational Drug Use: No Type Used: Cigarettes 2nd Hand Smoke Exposure: Yes Recent Foreign Travel: No Contact w/Someone Who Travel: No Recent Infectious Disease Expo: No Recent Hopitalizations: No Ebola Symptoms: Denies Symptoms Listed Immunizations Up To Date Tetanus Booster (TDap): Unknown PED Vaccines UTD: Yes Seasonal Allergies Seasonal Allergies: No Past Medical History Surgeries: Yes (TUBES IN EARS-"TOO MANY TO COUNT") Adenoidectomy, Ear Surgery, Gallbladder, Tonsillectomy Respiratory: Yes Asthma Cardiac: Yes Irregular Heartbeat Neurological: Yes Headaches /Migraines, Seizure Disorder Reproductive Disorders: Yes Female Reproductive Disorders: Menstrual Problems Sexually Transmitted Disease: No HIV/AIDS: No Genitourinary: Yes UTI-Chronic Gastrointestinal: Yes Chronic Diarrhea Musculoskeletal: Yes Back Injury, Chronic Back Pain Endocrine: No HEENT: Yes (MULTIPLE SETS OF BMT'S; T&A) Chronic Ear Infection, Tonsilitis Loss of Vision: Denies Hearing Impairment: Denies Cancer: No Psychosocial: Yes Anxiety, Bipolar, Depression Integumentary: Yes Eczema Blood Disorders: No Adverse Reaction/Blood Tranf: No Family Medical History Arthritis 19 MOTHER Asthma 19 MOTHER FH: diverticulitis 19 MOTHER FHx: supraventricular tachycardia 19 MOTHER Hypertension 19 MOTHER Physical Exam Vital Signs Vital Signs - First Documented 07/20/19 12:55 Temp 36.2 Pulse 90 Resp 18 B/P (MAP) 117/79 Capillary Refill : Height, Weight, BMI Height: 5'7.00" Weight: 153lbs. 8.0oz. 69.650930jj; 28.00 BMI Method:Stated General Appearance: No Apparent Distress, WD/WN Eyes: Bilateral Eye Normal Inspection, Bilateral Eye PERRL, Bilateral Eye EOMI HEENT: PERRL/EOMI, TMs Normal Neck: Full Range of Motion, Normal Inspection Respiratory: No Accessory Muscle Use, No Respiratory Distress Cardiovascular: Regular Rate, Rhythm, Normal Peripheral Pulses Gastrointestinal: Normal Bowel Sounds, Non Tender, Soft Extremity: Normal Capillary Refill, Normal Inspection Neurologic/Psychiatric: Alert, Oriented x3 Skin: Normal Color, Warm/Dry Progress/Results/Core Measures Suspected Sepsis SIRS Temperature: Pulse: Respiratory Rate: Laboratory Tests 07/20/19 13:06: White Blood Count 5.3 Blood Pressure / Mean: Laboratory Tests 07/20/19 13:06: Platelet Count 213 Results/Orders Lab Results Laboratory Tests Test 07/20/19 13:06 Range/Units White Blood Count 5.3 4.3-11.0 10^3/uL Red Blood Count 4.76 4.35-5.85 10^6/uL Hemoglobin 12.8 11.5-16.0 G/DL Hematocrit 38 35-52 % Mean Corpuscular Volume 80 80-99 FL Mean Corpuscular Hemoglobin 27 25-34 PG Mean Corpuscular Hemoglobin Concent 34 32-36 G/DL Red Cell Distribution Width 14.7 H 10.0-14.5 % Platelet Count 213 130-400 10^3/uL Mean Platelet Volume 10.4 7.4-10.4 FL Neutrophils (%) (Auto) 69 42-75 % Lymphocytes (%) (Auto) 24 12-44 % Monocytes (%) (Auto) 5 0-12 % Eosinophils (%) (Auto) 3 0-10 % Basophils (%) (Auto) 0 0-10 % Neutrophils # (Auto) 3.6 1.8-7.8 X 10^3 Lymphocytes # (Auto) 1.3 1.0-4.0 X 10^3 Monocytes # (Auto) 0.3 0.0-1.0 X 10^3 Eosinophils # (Auto) 0.1 0.0-0.3 10^3/uL Basophils # (Auto) 0.0 0.0-0.1 10^3/uL Urine Color YELLOW Urine Clarity CLEAR Urine pH 6.5 5-9 Urine Specific [place] <=1.005 1.016-1.022 Urine Protein NEGATIVE NEGATIVE Urine Glucose (UA) NEGATIVE NEGATIVE Urine Ketones NEGATIVE NEGATIVE Urine Nitrite NEGATIVE NEGATIVE Urine Bilirubin NEGATIVE NEGATIVE Urine Urobilinogen 0.2 < = 1.0 MG/DL Urine Leukocyte Esterase NEGATIVE NEGATIVE Urine RBC (Auto) NEGATIVE NEGATIVE Urine RBC NONE /HPF Urine WBC NONE /HPF Urine Squamous Epithelial Cells 0-2 /HPF Urine Crystals NONE /LPF Urine Bacteria NEGATIVE /HPF Urine Casts NONE /LPF Urine Mucus NEGATIVE /LPF Urine Culture Indicated NO Sodium Level 139 135-145 MMOL/L Potassium Level 4.2 3.6-5.0 MMOL/L Chloride Level 108 H 98-107 MMOL/L Calcium Level 9.0 8.5-10.1 MG/DL Corrected Calcium 8.8 8.5-10.1 MG/DL Albumin 4.3 3.2-4.5 GM/DL Serum Test, Qualitative POSITIVE NEGATIVE My Orders Orders - NICOLETTE EARL APRN Cbc With Automated Diff (07/20/19 13:00) Comprehensive Metabolic Panel (07/20/19 13:00) Ua Culture If Indicated (07/20/19 13:00) Urine Bedside (07/20/19 13:00) Hcg,Qualitative Serum (07/20/19 13:08) Hcg,Quantitative (07/20/19 13:29) Vital Signs/I&O 07/20/19 12:55 Temp 36.2 Pulse 90 Resp 18 B/P (MAP) 117/79 Capillary Refill : Departure Impression Primary Impression: Nausea alone Additional Impression: test positive Disposition: HOME, SELF-CARE Condition: Stable Departure-Patient Inst. Decision time for Depature: 13:13 Referrals: DANA ALMONTE MD (PCP/Family) Primary Care Physician Patient Instructions: Tests NICOLETTE EARL APRN July 20, 2019 13:13
[2019-07-20 13:15] LABS: BASOPHILS % (AUTO) 0 % (0-10); EOSINOPHILS # (AUTO) 0.1 10^3/uL (0.0-0.3); EOSINOPHILS % (AUTO) 3 % (0-10); HEMATOCRIT 38 % (35-52); HEMOGLOBIN 12.8 G/DL (11.5-16.0); LYMPHOCYTES # (AUTO) 1.3 X 10^3 (1.0-4.0); LYMPHOCYTES % (AUTO) 24 % (12-44); MEAN CORPUSCULAR HEMOGLOBIN 27 PG (25-34); MEAN CORPUSCULAR HGB CONC 34 G/DL (32-36); MEAN CORPUSCULAR VOLUME 80 FL (80-99); MEAN PLATELET VOLUME 10.4 FL (7.4-10.4); MONOCYTES # (AUTO) 0.3 X 10^3 (0.0-1.0); MONOCYTES % (AUTO) 5 % (0-12); NEUTROPHILS # (AUTO) 3.6 X 10^3 (1.8-7.8); NEUTROPHILS % (AUTO) 69 % (42-75); PLATELET COUNT 213 10^3/uL (130-400); RED CELL DISTRIBUTION WIDTH 14.7 % (10.0-14.5); WHITE BLOOD COUNT 5.3 10^3/uL (4.3-11.0)
[2019-07-20 13:19] LABS: BILIRUBIN,URINE NEGATIVE (NEGATIVE); CLARITY,URINE CLEAR; COLOR,URINE YELLOW; GLUCOSE, URINE (UA) NEGATIVE (NEGATIVE); KETONES,URINE NEGATIVE (NEGATIVE); LEUKOCYTE ESTERASE ,URINE NEGATIVE (NEGATIVE); NITRITE,URINE NEGATIVE (NEGATIVE); PH,URINE 6.5 (5-9); PROTEIN,URINE NEGATIVE (NEGATIVE)
[2019-07-20 13:27] LABS: ALBUMIN 4.3 GM/DL (3.2-4.5); BACTERIA,URINE NEGATIVE /HPF; SQUAMOUS EPITHELIAL CELL,UR 0-2 /HPF
[2019-07-20 13:28] LABS: CHLORIDE 108 MMOL/L (98-107); POTASSIUM 4.2 MMOL/L (3.6-5.0); SODIUM 139 MMOL/L (135-145)
[2019-07-20 13:30] LABS: GLUCOSE 94 MG/DL (70-105); TOTAL PROTEIN 7.2 GM/DL (6.4-8.2)
[2019-07-20 13:31] LABS: CARBON DIOXIDE 23 MMOL/L (21-32)
[2019-07-20 13:32] LABS: BILIRUBIN,TOTAL 0.5 MG/DL (0.1-1.0)
[2019-07-20 13:33] LABS: ALKALINE PHOSPHATASE 73 U/L (40-136); CREATININE SERUM 0.71 MG/DL (0.60-1.30); GFR ESTIMATED > 60
[2019-07-20 13:35] LABS: BUN/CREATININE RATIO 11
[2019-07-20 13:36] LABS: ALANINE AMINOTRANSFERASE 8 U/L (0-55)
== END 2019-07-20 14:00 | disposition home or self-care (01) ==
LOC: EDUNIT# 12:38 → ER 12:39
DX: R11.2 Nausea with vomiting, unspecified (principal); J45.909 Unspecified asthma, uncomplicated; G40.909 Epilepsy, unspecified, not intractable, without status epilepticus; F31.9 Bipolar disorder, unspecified; Z32.01 Encounter for pregnancy test, result positive; Z88.0 Allergy status to penicillin; Z88.1 Allergy status to other antibiotic agents; Z88.5 Allergy status to narcotic agent; Z88.6 Allergy status to analgesic agent; Z88.8 Allergy status to other drugs, medicaments and biological substances; Z77.22 Contact with and (suspected) exposure to environmental tobacco smoke (acute) (chronic); Z82.49 Family history of ischemic heart disease and other diseases of the circulatory system
CPT/HCPCS: 36415; 80053; 81000; 84702; 84703; 85025; 99282

== ENCOUNTER 2019-08-23 04:23 | Emergency (ER) | payer MEDICAID ==
[~2019-08-23] VITALS: Ht 170 cm; Wt 82.0 kg
--- NOTE | 2019-08-23 06:10 | Diagnostic Imaging Report ---
Indication: Left foot injury, stepped on a needle 3 views of left foot show a needle measuring 1.5 cm in length projecting in the metatarsal head between the 3rd and 4th toes. There is no fracture seen. IMPRESSION: There is a needle embedded in the soft tissues of the foot between the proximal phalanges of the 3rd and 4th toes. Dictated by: Dictated on workstation # [id number]
--- NOTE | 2019-08-23 06:15 | ED Lower Extremity ---
General Chief Complaint: General Problems/Pain Stated Complaint: POSS NEEDLE IN LEFT FOOT Nursing Triage Note: Pt reports 2 days ago stepped on sewing needle and thinks part of it is stuck in her foot. No redness, mild swelling to area. Possible foreign object to L foot noted. Source: patient History of Present Illness Date Seen by Provider: Aug 23, 2019 Time Seen by Provider: 06:00 Initial Comments PT ARRIVES VIA POV FROM HOME PT STEPPED ON A NEEDLE 2 DAYS AGO, WHILE BAREFOOT C/O CONTINUED PAIN, AND CANNOT BEAR WEIGHT DUE TO PAIN--HAS NOT TAKEN ANYTHING FOR PAIN FEELS LIKE SOMETHING IS STILL IN HER FOOT NO DRAINAGE NO STREAKS NO FEVER LAST TETANUS IS UNKNOWN PT STATES SHE IS "3-4 WEEKS " WITH LMP UNKNOWN HAS SEEN DR. WORTHINGTON FOR THIS PT WITH VERY EXTENSIVE LIST OF ALLERGIES, ESPECIALLY TO ANTIBIOTICS Allergies and Home Medications Allergies Coded Allergies: Penicillins (Verified Allergy, Severe, anaphylactic, 01/14/19) amoxicillin (Verified Allergy, Severe, anaphalytic, 01/14/19) cephalexin (Verified Allergy, Severe, anaphylatic , 01/14/19) cetirizine (Verified Allergy, Severe, seizures, 02/04/19) codeine (Verified Allergy, Severe, vomitting, chest pain, numbness, blurry vision, SOB, 02/04/19) divalproex sodium (Verified Allergy, Severe, Facial drooping, drooling, 02/04/19) fexofenadine (Verified Allergy, Severe, SEIZURES, 01/14/19) loratadine (Verified Allergy, Severe, seizures, 02/04/19) phenobarbital (Verified Allergy, Severe, Rash, vomitting, Seizures, 02/04/19) aspirin (Verified Allergy, Mild, hives, rash, 02/04/19) carbamazepine (Verified Allergy, Mild, hyperactivity, 02/04/19) cefaclor (Verified Allergy, Mild, vomitting, 02/04/19) povidone-iodine (Verified Allergy, Mild, rash, hives, 02/04/19) tramadol (Verified Allergy, Unknown, 04/03/19) Home Medications Albuterol Sulfate 1 Puff Puff, 2 PUFF IH Q4H PRN for SHORTNESS OF BREATH, (Reported) Azithromycin 200 Mg/5 Ml Susp.recon, 200 MG PO DAILY Prescribed by: RODNEY CLARKE on 02/15/19 1226 Ciprofloxacin HCl 5 Ml Drops, 3 DROPS EACH EAR BID 3 Drops Each Ear Prescribed by: RODNEY CLARKE on 02/15/19 1221 Dexamethasone 1 Mg/1 Ml Amina, 2 TSP PO DAILY PRN for PAIN Mix 4MG/2.5CC water Prescribed by: RODNEY CLARKE on 02/15/19 1221 Norgestimate-Ethinyl Estradiol 1 Each Tablet, 1 EACH PO DAILY, (Reported) Nystatin 100,000 Unit/1 Ml Oral.susp, 5 ML PO Q6H Swish for one minute before swallowing. Continue use 48 hours after symptoms resolve. Prescribed by: FARHAD MIRAMONTES on 02/23/19 2255 Ondansetron 4 Mg Tab.rapdis, 4 MG SL Q4H Prescribed by: FARHAD MIRAMONTES on 02/23/19 2300 Oxcarbazepine 600 Mg Tablet, 600 MG PO BID, (Reported) Oxycodone HCl 5 Mg/5 Ml Solution, 1-2 TSP PO Q4H PRN for PAIN-MODERATE (5-7) Prescribed by: RODNEY CLARKE on 02/15/19 1226 Tetracaine Sucker Ea, 1 EA MT UD PRN for PAIN Tetracain Suckers These suckers are custom made and require a prescription. Moisten the sucker first and then suck on it gently as far back in the mouth as possible for 2-3 days. You can repeadt it in about an hour. This will take the edge off but not completely numb the throat. Prescribed by: RODNEY CLARKE on 02/15/19 1221 Tramadol HCl 50 Mg Tablet, 50 MG PO Q4H PRN for PAIN-MODERATE Prescribed by: DAVE THURMAN on 04/03/19 0533 Vancomycin HCl 250 Mg Capsule, 250 MG PO QID Prescribed by: DAVE THURMAN on 08/23/19 0691 Patient Home Medication List Home Medication List Reviewed: Yes Review of Systems Constitutional: no symptoms reported; No fever : Yes Control/STD Prophylaxis: None Musculoskeletal: see HPI Skin: see HPI Psychiatric/Neurological: No Symptoms Reported Past Ytvyptq-Lwylfq-Bxsbwh Hx Past Med/Social Hx: Reviewed and Corrections made Patient Social History Alcohol Use: Denies Use Recreational Drug Use: No Smoking Status: Current Everyday Smoker (1 PPD) Type Used: Cigarettes 2nd Hand Smoke Exposure: Yes Recent Foreign Travel: No Contact w/Someone Who Travel: No Recent Infectious Disease Expo: Yes Recent Hopitalizations: No Ebola Symptoms: Denies Symptoms Listed Physical Abuse: No Sexual Abuse: No Mistreated: No Fear: No Immunizations Up To Date Tetanus Booster (TDap): Unknown PED Vaccines UTD: Yes Seasonal Allergies Seasonal Allergies: No Past Medical History Surgeries: Yes (TUBES IN EARS-"TOO MANY TO COUNT") Adenoidectomy, Ear Surgery, Gallbladder, Tonsillectomy Respiratory: Yes Asthma Cardiac: Yes Irregular Heartbeat Neurological: Yes Headaches /Migraines, Seizure Disorder Reproductive Disorders: Yes Female Reproductive Disorders: Menstrual Problems Sexually Transmitted Disease: No HIV/AIDS: No Genitourinary: Yes UTI-Chronic Gastrointestinal: Yes Chronic Diarrhea Musculoskeletal: Yes Back Injury, Chronic Back Pain Endocrine: No HEENT: Yes (MULTIPLE SETS OF BMT'S; T&A) Chronic Ear Infection, Tonsilitis Loss of Vision: Denies Hearing Impairment: Denies Cancer: No Psychosocial: Yes Anxiety, Bipolar, Depression Integumentary: Yes Eczema Blood Disorders: No Adverse Reaction/Blood Tranf: No Family Medical History Arthritis 19 MOTHER Asthma 19 MOTHER FH: diverticulitis 19 MOTHER FHx: supraventricular tachycardia 19 MOTHER Hypertension 19 MOTHER Physical Exam Vital Signs Vital Signs - First Documented 08/23/19 04:28 Temp 37.6 Pulse 72 Resp 16 B/P (MAP) 113/61 O2 Delivery Room Air Capillary Refill : Height, Weight, BMI Height: 5'7.00" Weight: 153lbs. 8.0oz. [id number]; 28.00 BMI Method:Stated General Appearance: WD/WN, no apparent distress Feet: left foot infection, left foot pain, left foot soft tissue tenderness, left foot swelling, left foot other (PT WITH POSSIBLE SCABBED OVER ENTRANCE WOUND TO BALL OF FOOT, NEAR 3RD/4TH METATARSAL AREA. PT WITH PINPOINT TENDERNESS, ERYTHEMA AND SWELLING BETWEEN LEFT 3RD AND 4TH TOES. UNABLE TO PALPATE FOREIGN BODY AT THIS TIME. NO DRAINAGE. NO STREAKS. NO FLUCTUANCE. ) Neurologic/Tendon: normal sensation, normal motor functions, normal tendon functions Neurologic/Psychiatric: no motor/sensory deficits, alert, normal mood/affect Skin: normal color, warm/dry, other ( ABOVE) Progress/Results/Core Measures Results/Orders My Orders Orders - DAVE THURMAN DO Ed Iv/Invasive Line Start (08/23/19 06:30) Vancomycin Injection (Vancomycin Injecti (08/23/19 06:30) Vancomycin Injection (Vancomycin Injecti (08/23/19 07:30) Dipht,Pertuss(Acell),Tet Adult (Boostrix (08/23/19 06:30) Acetaminophen Tablet (Tylenol Tablet) (08/23/19 06:30) Crutches (08/23/19 06:30) Diphenhydramine Injection (Benadryl Inje (08/23/19 08:00) Methylprednisolone Sod Succ (Solu-Medrol (08/23/19 08:00) General/Regular (08/23/19 Breakfast) Medications Given in ED Current Medications Medications Dose Ordered Sig/She Route Start Time Stop Time Status Last Admin Dose Admin Acetaminophen 1,000 mg ONCE ONCE PO 08/23/19 06:30 08/23/19 06:32 DC 08/23/19 07:21 1,000 MG Diphenhydramine HCl 50 mg ONCE ONCE IVP 08/23/19 08:00 08/23/19 08:01 DC 08/23/19 07:54 50 MG Diphtheria/ Tetanus/Acell Pertussis 0.5 ml ONCE ONCE IM 08/23/19 06:30 08/23/19 06:32 DC 08/23/19 07:30 0.5 ML Methylprednisolone Sodium Succinate 125 mg ONCE ONCE IVP 08/23/19 08:00 08/23/19 08:01 DC 08/23/19 07:56 125 MG Vancomycin HCl 1000 mg/Sodium Chloride 250 ml @ 250 mls/hr ONCE ONCE IV 08/23/19 06:30 08/23/19 07:29 DC 08/23/19 07:21 250 MLS/HR Vital Signs/I&O 08/23/19 04:28 Temp 37.6 Pulse 72 Resp 16 B/P (MAP) 113/61 O2 Delivery Room Air Progress Progress Note : Progress Note GIVEN IV VANCYOMYCIN 0745--PT STATES SHE IS HAVING SOME ITCHING--3 TINY PINPOINT AREAS OF ITCHING --LEFT FOREARM, LEFT SHOULDER AND BACK OF HEAD--NO RASH, NO SWELLING, NO DIFFICULTY BREATHING OR WHEEZING. GIVEN BENADRYL AND SOLU-MEDROL. ITCHING RESOLVED. 808--MOM IS WANTING TO SIGN PT OUT AMA. PT WANTS TO STAY AND FINISH ANTIBIOTICS. 904--PT NOW SIGNING OUT AMA. DOES NOT WANT TO FINISH IV ANTIBIOTICS. STATES "THE BUSINESS SYSTEMS ADVISOR ARE AT MY HOUSE". Diagnostic Imaging Comments XRAYS LEFT FOOT--FOREIGN BODY BETWEEN 3RD AND 4TH TOES, C/W NEEDLE--PER RADIOLOGIST REPORT AT 0640 Reviewed: Reviewed by Me Departure Communication (Admissions) 0625--SPOKE WITH DR. WORTHINGTON REGARDING ANTIBIOTIC CHOICE, PT IS IN FIRST TRIMESTER OF AND HAS EXTENSIVE LIST OF ALLERGIES TO ANTIBIOTICS. HE ADVISES TO GIVE A DOSE OF IV VANCOMYCIN HERE AND START PT ON ORAL VANCOMYCIN. Impression Primary Impression: Foreign body in left foot with infection Additional Impressions: Gwvdhcdrwe-rwglavyxf-ybalfuu (DPT) vaccination administered at current visit Left against medical advice Disposition: AGAINST MEDICAL ADVICE Condition: Stable Departure-Patient Inst. Referrals: DANA ALMONTE MD (PCP/Family) Primary Care Physician ISABELLA SINGER MD, LARRY E DO ZAFUTA, MICHAEL P MD Patient Instructions: Cellulitis (Skin Infection), Adult (DC), Diphtheria and Tetanus Toxoids, and Acellular Pertussis Vaccine, Foreign Body in Skin (DC), How to Use Crutches, Wound Infection Add. Discharge Instructions: SOAK FOOT IN WARM EPSOM SALTS 2-3 TIMES A DAY USE CRUTCHES FOR COMFORT TYLENOL NEEDED FOR PAIN FOLLOW UP WITH DR. ESCOBAR OR DR. SINGER ( [facility] ) OR LOCAL TRANSFER STATION ATTENDANT OF CHOICE FOR FURTHER CARE--CALL TODAY FOR APPOINTMENT All discharge instructions reviewed with patient and/or family. Voiced understanding. Scripts Vancomycin HCl (Vancocin HCl) 250 Mg Capsule 250 MG PO QID, #30 CAP Prov: DAVE THURMAN DO 08/23/19 DAVE THURMAN DO Aug 23, 2019 06:15
[2019-08-23] MEDS ORDERED: ACETAMINOPHEN 500 MG TAB (TYLENOL) PO ONE (06:30)
[2019-08-23] MEDS ORDERED: VANCOMYCIN INJECTION 1,000 MG in NS (IVPB) 250 ML IV ONE (06:30)
[2019-08-23] MEDS ORDERED: TETANUS,DIPTH,PERTUSS P/F (BOOSTRIX) 0.5 ML VIAL IM ONE (06:30)
[2019-08-23] MEDS ORDERED: VANC250C12 PO (06:35)
[2019-08-23] MEDS ORDERED: VANCOMYCIN INJECTION 750 MG in NS (IVPB) 250 ML IV ONE (07:30)
--- NOTE | 2019-08-23 07:48 | NUR ---
CALLED TO ROOM VANCOMYCIN INFUSING REPORTS ITCHEY ALL OVER. DR THURMAN NOTIFED WILL ORDER MEDS AND AND CON'T VANCOMYCIN
[2019-08-23] MEDS ORDERED: methylPREDNISolone 125 MG (Solu-MEDROL) VIAL IVP ONE (08:00)
[2019-08-23] MEDS ORDERED: diphenhydrAMINE 50 MG/ML INJ (BENADRYL) IVP ONE (08:00)
--- NOTE | 2019-08-23 08:13 | NUR ---
MOTHER AT DESK WANTING PATIENT TO SIGN OUT AMA DR THURMAN AND THIS NURSE TALKED WITH PATIENT WISH TO STAY AND NOT SIGN AMA. ONION TOPPER NOTIFIED TO INFORM MOTHER.
--- NOTE | 2019-08-23 08:34 | NUR ---
FOOD TRAY GIVEN
== END 2019-08-23 09:12 ==
LOC: EDUNIT# 04:23 → ER 04:26
DX: O9A.211 Injury, poisoning and certain other consequences of external causes complicating pregnancy, first trimester (principal); S91.342A Puncture wound with foreign body, left foot, initial encounter; O99.711 Diseases of the skin and subcutaneous tissue complicating pregnancy, first trimester; L08.9 Local infection of the skin and subcutaneous tissue, unspecified; O99.511 Diseases of the respiratory system complicating pregnancy, first trimester; J45.909 Unspecified asthma, uncomplicated; O99.351 Diseases of the nervous system complicating pregnancy, first trimester; G40.909 Epilepsy, unspecified, not intractable, without status epilepticus; O23.41 Unspecified infection of urinary tract in pregnancy, first trimester; O99.611 Diseases of the digestive system complicating pregnancy, first trimester; K52.9 Noninfective gastroenteritis and colitis, unspecified; O99.89 Other specified diseases and conditions complicating pregnancy, childbirth and the puerperium; H66.90 Otitis media, unspecified, unspecified ear; G89.29 Other chronic pain; M54.9 Dorsalgia, unspecified; O99.331 Smoking (tobacco) complicating pregnancy, first trimester; F17.210 Nicotine dependence, cigarettes, uncomplicated; Z88.5 Allergy status to narcotic agent; Z88.1 Allergy status to other antibiotic agents; Z88.6 Allergy status to analgesic agent; Z23 Encounter for immunization; Z88.8 Allergy status to other drugs, medicaments and biological substances; Z88.0 Allergy status to penicillin; Z3A.01 Less than 8 weeks gestation of pregnancy; Z82.49 Family history of ischemic heart disease and other diseases of the circulatory system; W27.3XXA Contact with needle (sewing), initial encounter
CPT/HCPCS: 73630; 90715

== ENCOUNTER 2020-03-04 21:20 | Outpatient (CLI) | payer MEDICAID ==
[~2020-03-04] VITALS: Ht 170.2 cm; Wt 92.6 kg
[~2020-03-04 21:20] MED LIST changes: +VANC250C12 PO
--- NOTE | 2020-03-04 21:40 | NUR ---
JOHN SINCLAIR presented to unit via ambulatory from ED, accompanied by mother, with c/o LOWER ABDOMINAL PAIN. YAHIRJOHN Garcia weighed, gowned, voided, and to bed. EFHM and TOCO applied, VS taken. JOHN SINCLAIR oriented to bed controls, call light, TV, heat, and A/C controls.
--- NOTE | 2020-03-04 21:45 | NUR ---
Pt presented to ob unit c/o lower abdominal pain that has been coming and going all days, states she has the discomfort every 40min-2hrs. Reports she last had intercourse last night. Her last appointment was yesterday. Denies any leaking, bleeding, or complications with . U/a collected, very dark in color. Pt reports that she only drinks pop.
[2020-03-04 21:57] LABS: BILIRUBIN,URINE 1+ (NEGATIVE); CLARITY,URINE CLEAR; COLOR,URINE YELLOW; GLUCOSE, URINE (UA) NEGATIVE (NEGATIVE); KETONES,URINE NEGATIVE (NEGATIVE); LEUKOCYTE ESTERASE ,URINE NEGATIVE (NEGATIVE); NITRITE,URINE NEGATIVE (NEGATIVE); PROTEIN,URINE TRACE (NEGATIVE)
[2020-03-04 21:58] VITALS: BP 124/68
[2020-03-04 22:02] VITALS: BP 124/68
[2020-03-04 22:26] LABS: AMORPHOUS SEDIMENT,UR MOD AMOR URATES /LPF; BACTERIA,URINE MODERATE /HPF
--- NOTE | 2020-03-04 22:34 | NUR ---
called with pt complaint, vs, u/a results and tracing. Discharge order received. Will wait on culture for treatment.
[2020-03-04] MEDS ORDERED: ACET325C7 PO (22:45)
[2020-03-04] MEDS ORDERED: DOCO200C4 PO (22:45)
[2020-03-04] MEDS ORDERED: PREN-8 PO (22:47)
--- NOTE | 2020-03-04 22:55 | NUR ---
Discharge instructions verbalized, Pt verbalized understanding. labor precautions given Pt will follow up in clinic
--- NOTE | 2020-03-05 08:10 | Physician Query-Final Dx ---
Clinic Account Progress/Dx Physician Query: Please give diagnosis Please include # weeks gestation Date of Service Mar 04, 2020 at 21:20 OKSANA DENNIS Mar 05, 2020 08:10
== END 2020-03-04 22:55 ==
LOC: WSo 21:20 → LDRP 21:31 → WSo 22:55
PROVIDERS: ATTEND Family Medicine
DX: O26.893 Other specified pregnancy related conditions, third trimester (principal); Z3A.36 36 weeks gestation of pregnancy
CPT/HCPCS: 81000; 87088; G0463; 99212

== ENCOUNTER 2020-03-20 19:59 | Outpatient (CLI) | payer MEDICAID ==
[~2020-03-20] VITALS: Ht 170.2 cm; Wt 90.3 kg
[~2020-03-20 19:59] MED LIST changes: +ACET325C7 PO; +DOCO200C4 PO; +PREN-8 PO
--- NOTE | 2020-03-20 20:05 | NUR ---
JOHN SINCLAIR presented to unit via wheelchair from ED, accompanied by significant other, with c/o CONTRACTIONS. JOHN SINCLAIR weighed, gowned, voided, and to bed. EFHM and TOCO applied, VS taken. JOHN SINCLAIR oriented to bed controls, call light, TV, heat, and A/C controls.
[2020-03-20 20:15] VITALS: BP 120/74
[2020-03-20 20:26] LABS: BILIRUBIN,URINE NEGATIVE (NEGATIVE); CLARITY,URINE CLEAR; COLOR,URINE YELLOW; GLUCOSE, URINE (UA) NEGATIVE (NEGATIVE); KETONES,URINE NEGATIVE (NEGATIVE); LEUKOCYTE ESTERASE ,URINE NEGATIVE (NEGATIVE); NITRITE,URINE NEGATIVE (NEGATIVE); PH,URINE 6.5 (5-9); PROTEIN,URINE NEGATIVE (NEGATIVE)
[2020-03-20 20:33] LABS: BACTERIA,URINE FEW /HPF
[2020-03-20 20:35] LABS: AMORPHOUS SEDIMENT,UR FEW AMOR URATES /LPF
[2020-03-20 21:20] VITALS: BP 130/79
--- NOTE | 2020-03-20 21:23 | NUR ---
Dr. Vdial called and updated on pt's arrival, complaints, FHR, strip, sve, and ua. Discharge orders received.
--- NOTE | 2020-03-20 21:26 | NUR ---
pt dc'd from external monitors to change.
--- NOTE | 2020-03-20 21:39 | NUR ---
Discharge instructions read and reviewed with pt, pt verbalized understanding. Ambulated off unit with s.o.
[2020-03-20 21:43] VITALS: BP 130/79
--- NOTE | 2020-03-24 16:45 | Physician Query-Final Dx ---
Final Diagnosis Give Final Diagnosis Please give Final Diagnosis MINI DODD Mar 24, 2020 16:45
== END 2020-03-20 21:30 | disposition home or self-care (01) ==
LOC: LDRP 19:59 → WSo 19:59
PROVIDERS: ATTEND Family Medicine
DX: O62.0 Primary inadequate contractions (principal)
CPT/HCPCS: 81000; 99213

== ENCOUNTER 2020-03-24 19:12 | Outpatient (CLI) | payer MEDICAID ==
--- NOTE | 2020-03-24 19:20 | NUR ---
JOHN SINCLAIR presented to unit via W/C from HOME/ED, accompanied by OTORHINOLARYNGOLOGIST & SO, with c/o CONTRACTIONS/WATER BROKE. JOHN SINCLAIR weighed, gowned, voided, and to bed. EFHM and TOCO applied, VS taken. JOHN SINCLAIR oriented to bed controls, call light, TV, heat, and A/C controls.
[2020-03-24 19:45] VITALS: BP 112/66
--- NOTE | 2020-03-24 20:54 | NUR ---
D/C instructions given & explained, again reassurance given, pt. verbalized understanding & signed, copy of D/C instructions to pt. Pt. left [facility] ambulatory escorted by SO, to home via private vehicle.
--- NOTE | 2020-03-25 08:06 | Physician Query-Final Dx ---
Clinic Account Progress/Dx Physician Query: Please give diagnosis Please include # weeks gestation Date of Service Mar 24, 2020 at 19:12 OKSANA DENNIS Mar 25, 2020 08:06
== END 2020-03-24 20:54 | disposition home or self-care (01) ==
LOC: WSo 19:12 → LDRP 19:13 → WSo 20:54
PROVIDERS: ATTEND Family Medicine
DX: O62.9 Abnormality of forces of labor, unspecified (principal); Z3A.39 39 weeks gestation of pregnancy
CPT/HCPCS: 99214

== ENCOUNTER 2020-03-30 18:01 | Inpatient (IN) | payer MEDICAID ==
[~2020-03-30] VITALS: Ht 170 cm; Wt 89.4 kg
[2020-03-30 19:20] VITALS: BP 119/70
[2020-03-30] MEDS ORDERED: D5 LR IV SOLUTION 1,000 ML IV ONE (19:22)
[2020-03-30] MEDS: D5 LR IV SOLUTION 1,000 ML IV SCH (19:33)
[2020-03-30 19:41] LABS: BASOPHILS % (AUTO) 0 % (0-10); EOSINOPHILS # (AUTO) 0.1 10^3/uL (0.0-0.3); EOSINOPHILS % (AUTO) 2 % (0-10); HEMATOCRIT 37 % (35-52); HEMOGLOBIN 12.6 g/dL (11.5-16.0); LYMPHOCYTES # (AUTO) 1.3 10^3/uL (1.0-4.0); LYMPHOCYTES % (AUTO) 16 % (12-44); MEAN CORPUSCULAR HEMOGLOBIN 31 pg (25-34); MEAN CORPUSCULAR HGB CONC 35 g/dL (32-36); MEAN CORPUSCULAR VOLUME 88 fL (80-99); MEAN PLATELET VOLUME 10.3 fL (9.0-12.2); MONOCYTES # (AUTO) 0.5 10^3/uL (0.0-1.0); MONOCYTES % (AUTO) 6 % (0-12); NEUTROPHILS # (AUTO) 6.3 10^3/uL (1.8-7.8); NEUTROPHILS % (AUTO) 76 % (42-75); PLATELET COUNT 214 10^3/uL (130-400); WHITE BLOOD COUNT 8.2 10^3/uL (4.3-11.0)
[2020-03-30 19:45] VITALS: BP 119/70
[2020-03-30] MEDS ORDERED: MISOPROSTOL 100 MCG (CYTOTEC) TAB PO ONE (19:45)
[2020-03-30] MEDS ORDERED: LACTATED RINGERS 1,000 ML IV SCH (19:45)
[2020-03-30] MEDS ORDERED: TERBUTALINE INJ 1 MG/ML (BRETHINE) AMP SC PRN (19:45)
[2020-03-30 21:30] VITALS: BP 122/61
[2020-03-30 22:30] VITALS: BP 135/65
[2020-03-30 23:30] VITALS: BP 119/67
[2020-03-30] MEDS ORDERED: MISOPROSTOL 100 MCG (CYTOTEC) TAB PO SCH (23:45)
[2020-03-31] VITALS (60 sets, daily range): BP systolic 99–180; BP diastolic 54–90
[2020-03-31] MEDS ORDERED: fentaNYL 2 mcg/ml BUPIVA 0.125 100 ML ONE (00:53)
[2020-03-31] MEDS ORDERED: ONDANSETRON 4 MG/2 ML (SDV) Z0FRAN IV PRN (02:15)
[2020-03-31] MEDS ORDERED: diphenhydrAMINE 50 MG/ML INJ (BENADRYL) IV PRN (02:15)
[2020-03-31] MEDS ORDERED: METOCLOPRAMIDE INJ 10 MG/2 ML (REGLAN) IV PRN (02:15)
[2020-03-31] MEDS ORDERED: LACTATED RINGERS 1,000 ML IV SCH (02:15)
[2020-03-31] MEDS ORDERED: NALOXONE 0.4 MG/ML 1 ML (NARCAN) VIAL IV PRN ×2 (02:15)
[2020-03-31] MEDS: EPIDURAL (fentaNYL 2 MCG/ML BUPIVA 0.125%)100 ML BAG EPI PRN ×2 (02:17→10:01)
[2020-03-31] MEDS: D5 LR IV SOLUTION 1,000 ML IV SCH ×2 (02:49→10:50)
[2020-03-31] MEDS ORDERED: LIDOCAINE/EPI 2% 1:200,00 (XYLOCAINE) 10 ML VIAL ONE (11:58)
[2020-03-31] MEDS ORDERED: OXYTOCIN PRE-MIX DRIP 500 ML IV ONE ×2 (11:58→13:04)
[2020-03-31] MEDS ORDERED: MISOPROSTOL 200 MCG (CYTOTEC) TABLET ONE (12:48)
[2020-03-31] MEDS: OXYTOCIN PRE-MIX DRIP 500 ML IV SCH ×2 (12:48→13:18)
--- NOTE | 2020-03-31 13:15 | History & Physical-OB ---
OB - Chief Complaint & HPI Date/Time Date of Admission: Date of Admission: Mar 30, 2020 at 18:01 Date seen by a Provider: Mar 31, 2020 Time Seen by a Provider: 12:30 Chief Complaint/History OB-Reason for Admission/Chief: Induction of Labor Hx : 2 Hx Para: 1 Expected Date of Delivery: Mar 27, 2020 Gestational Age in Weeks: 40 Gestational Age in Days: 2 Indication for induction: post dates History of Labs O+, Ab neg, Rub Imm HIV/HepB/RPR NR Normal 1 hr GTT GBS Neg Allergies and Home Medications Allergies Coded Allergies: Penicillins (Verified Allergy, Severe, anaphylactic, 03/20/20) amoxicillin (Verified Allergy, Severe, anaphalytic, 03/20/20) cephalexin (Verified Allergy, Severe, anaphylatic , 03/20/20) cetirizine (Verified Allergy, Severe, seizures, 03/20/20) codeine (Verified Allergy, Severe, vomitting, chest pain, numbness, blurry vision, SOB, 03/20/20) divalproex sodium (Verified Allergy, Severe, Facial drooping, drooling, 03/20/20) fexofenadine (Verified Allergy, Severe, SEIZURES, 03/20/20) loratadine (Verified Allergy, Severe, seizures, 03/20/20) phenobarbital (Verified Allergy, Severe, Rash, vomitting, Seizures, 03/20/20) aspirin (Verified Allergy, Mild, hives, rash, 03/20/20) carbamazepine (Verified Allergy, Mild, hyperactivity, 03/20/20) cefaclor (Verified Allergy, Mild, vomitting, 03/20/20) povidone-iodine (Verified Allergy, Mild, rash, hives, 03/20/20) tramadol (Verified Allergy, Unknown, 03/20/20) Home Medications Acetaminophen 325 Mg Capsule, 1,000 MG PO Q6H, (Reported) Patient Home Medication List Home Medication List Reviewed: Yes OB - History Hx of Present Care: Yes Ultrasounds: No ultrasounds Obstetrical Complications: None Medical Complications: Respiratory (Tobacco Abuse) Information Induced Hypertension: No Maternal Gestational Diabetes: No Hemorrhage: No Obstetrical History Hx : 2 Hx Para: 1 Hx # Term Pregnancies: 1 Number of Living Children: 1 Delivery History Hx Blood Disorders: No Adverse Rxn to Tranfusion: No Patient Past Medical History Tobacco Abuse Social History/Family History Smoking Cessation: Current every day smoker 2nd Hand Smoke Exposure: No Immunizations Hepatitis A: Yes Hepatitis B: Yes Tetanus Booster (TDap): Less than 5yrs Rubella: immune RPR/VDRL: Negative GBS Status: Negative HBsAG: Negative OB - Admission Exam Physical Exam Vitals: Vital Signs 03/31/20 03/31/20 03/31/20 03:50 10:20 11:05 Temp 36.5 Pulse 83 Resp 18 B/P (MAP) 123/68 (86) Pulse Ox 97 O2 Delivery Room Air HEENT: NCAT Heart: Rhythm Normal Lungs: Clear Abdomen: Gravid Cervical Dilatation: 8cm Effacement: 100% Station: +1 Membranes: Ruptured Amniotic Fluid: Clear Heart Rate: 140's Accelerations: Accelerations Present Decelerations: No Decelerations Contractions on Admission: < 5 Minutes Apart Intensity: Firm Labs Laboratory Tests Test 03/30/20 18:30 Range/Units White Blood Count 8.2 4.3-11.0 10^3/uL Red Blood Count 4.13 3.80-5.11 10^6/uL Hemoglobin 12.6 11.5-16.0 g/dL Hematocrit 37 35-52 % Mean Corpuscular Volume 88 80-99 fL Mean Corpuscular Hemoglobin 31 25-34 pg Mean Corpuscular Hemoglobin Concent 35 32-36 g/dL Red Cell Distribution Width 13.0 10.0-14.5 % Platelet Count 214 130-400 10^3/uL Mean Platelet Volume 10.3 9.0-12.2 fL Immature Granulocyte % (Auto) 1 % Neutrophils (%) (Auto) 76 H 42-75 % Lymphocytes (%) (Auto) 16 12-44 % Monocytes (%) (Auto) 6 0-12 % Eosinophils (%) (Auto) 2 0-10 % Basophils (%) (Auto) 0 0-10 % Neutrophils # (Auto) 6.3 1.8-7.8 10^3/uL Lymphocytes # (Auto) 1.3 1.0-4.0 10^3/uL Monocytes # (Auto) 0.5 0.0-1.0 10^3/uL Eosinophils # (Auto) 0.1 0.0-0.3 10^3/uL Basophils # (Auto) 0.0 0.0-0.1 10^3/uL Immature Granulocyte # (Auto) 0.0 0.0-0.1 10^3/uL OB - Assessment/Plan/Diagnosis Assessment Assessment: induction of labor Admission Dx Third Trimester 40 Week Gestation Admission Status: Inpatient Order (span 2 midnights) Reason for Inpatient Admission: IOL, Labor Plan Other Plan 19 yo @ 40.2 wga here for IOL for Post dates Plan - Cytotec Protocol - AROM this AM - Pitocin Protocol - GBS Neg Copy Copies To 1: RADHA YIN MD, HOLLY R MD Mar 31, 2020 13:15
--- NOTE | 2020-03-31 13:21 | OB Labor & Delivery Record ---
Vag Delivery Note Vag Delivery Note Date of Delivery: 03/31/20 Preoperative Diagnosis: Grant Ritter is a (19 /Para 2/1 ,Gestational Age 40.2 wga here for elective IOL post dates Postoperative Diagnosis: Same Surgeon: RADHA YIN Adult Psychiatrist: Ronaldo Douglas, MS4 Anesthesia: Epidural Delivery Type: @ 1239 Findings: Viable Female , apgars 8/9, weight 7#7, 3380 grams Lacerations: Left vaginal with extension in periurethral Intact placenta with 3 vessel cord. No nuchal cord, body cord or shoulder dystocia Estimated Blood Loss: 200 ml Complications: None Condition: Stable Description of Procedure: The patient is a 19 year old female who presented for IOL @ 40.2 wga. She was admitted and informed consent was obtained. Her labor course was unremarkable. She progressed to complete dilatation and began to push. She was then set up for delivery. The 's head was delivered atraumatically in the FRANTZ position. The shoulders and remainder of the 's body were then delivered without difficulty. Upon delivery, the head was held below the level of the perineum and the mouth and nares were bulb suctioned. The cord was doubly clamped and cut after 2 min delay and the was attended to by the pediatric staff on maternal abdomen. An intact placenta with 3-vessel cord delivered via Sae and there was found to be minimal bleeding.~ Vigorous fundal massage was performed and the fundus was found to be firm. IV oxytocin was given. Examination of the vagina and perineum revealed a left vaginal laceration repaired in the usual fashion with 3-0 vicryl suture. Following the repair, sponge, instrument and needle counts were correct. Mom and baby were both in stable condition in the labor suite. Vitals - Labs Vital Signs - I&O Vital Signs Date Time Temp Pulse Resp B/P (MAP) Pulse Ox O2 Delivery O2 Flow Rate FiO2 03/31/20 11:05 83 18 123/68 (86) Room Air 03/31/20 10:50 76 18 180/64 (102) Room Air 03/31/20 10:35 86 18 111/63 (79) Room Air 03/31/20 10:20 36.5 80 18 113/63 (80) Room Air 03/31/20 10:05 81 18 111/67 (82) Room Air 03/31/20 09:50 83 18 111/63 (79) Room Air 03/31/20 09:35 74 18 110/69 (83) Room Air 03/31/20 09:20 80 18 113/64 (80) Room Air 03/31/20 09:05 76 18 117/73 (88) Room Air 03/31/20 08:50 80 18 113/70 (84) Room Air 03/31/20 08:35 36.2 75 18 121/76 (91) Room Air 03/31/20 08:20 76 18 117/65 (82) Room Air 03/31/20 08:05 77 18 113/68 (83) Room Air 03/31/20 07:50 75 18 111/64 (80) Room Air 03/31/20 07:35 82 18 117/70 (86) Room Air 03/31/20 07:20 36.6 86 18 122/59 (80) Room Air 03/31/20 07:05 68 18 121/60 (80) Room Air 03/31/20 06:50 76 18 121/58 (79) Room Air 03/31/20 06:35 75 18 113/67 (82) Room Air 03/31/20 06:20 74 18 111/63 (79) Room Air 03/31/20 06:05 71 18 103/57 (72) Room Air 03/31/20 05:50 71 18 104/58 (73) Room Air 03/31/20 05:35 68 18 107/60 (76) Room Air 03/31/20 05:20 69 18 99/58 (72) Room Air 03/31/20 05:05 72 18 101/58 (72) Room Air 03/31/20 04:50 90 18 108/60 (76) Room Air 03/31/20 04:35 75 18 104/58 (73) Room Air 03/31/20 04:20 75 18 106/57 (73) Room Air 03/31/20 04:05 66 18 106/60 (75) Room Air 03/31/20 03:50 79 18 109/55 (73) 97 Room Air 03/31/20 03:35 74 18 107/61 (76) 97 Room Air 03/31/20 03:20 67 18 108/58 (75) 97 Room Air 03/31/20 03:05 94 18 105/61 (76) 97 Room Air 03/31/20 02:44 88 18 99/56 (70) 97 Room Air 03/31/20 02:39 70 18 106/54 (71) 98 Room Air 03/31/20 02:32 73 18 106/54 (71) 97 Room Air 03/31/20 02:28 76 18 111/59 (76) 97 Room Air 03/31/20 02:25 84 18 113/76 (88) 98 Room Air 03/31/20 02:17 85 18 106/61 (76) 98 Room Air 03/31/20 02:12 93 18 118/57 (77) 98 Room Air 03/31/20 02:07 74 18 118/63 (81) 98 Room Air 03/31/20 02:02 77 18 121/66 (84) 99 Room Air 03/31/20 01:59 80 18 121/58 (79) 99 Room Air 03/31/20 01:53 88 18 132/68 (89) 100 Room Air 03/31/20 01:48 85 18 117/72 (87) Room Air 03/31/20 01:30 36.6 78 18 126/78 (94) Room Air 03/31/20 00:30 75 18 109/67 (81) Room Air 03/30/20 23:30 74 18 119/67 (84) Room Air 03/30/20 22:30 76 18 135/65 (88) Room Air 03/30/20 21:30 36.8 75 18 122/61 (81) Room Air 03/30/20 19:45 36.8 83 18 98 Room Air 03/30/20 19:20 36.8 83 18 119/70 (86) 98 Room Air I & O 03/31/20 07:00 Intake Total 3000 ml Balance 3000 ml Labs Laboratory Tests 03/30/20 18:30: White Blood Count 8.2, Red Blood Count 4.13, Hemoglobin 12.6, Hematocrit 37, Mean Corpuscular Volume 88, Mean Corpuscular Hemoglobin 31, Mean Corpuscular Hemoglobin Concent 35, Red Cell Distribution Width 13.0, Platelet Count 214, Mean Platelet Volume 10.3, Immature Granulocyte % (Auto) 1, Neutrophils (%) (Auto) 76H, Lymphocytes (%) (Auto) 16, Monocytes (%) (Auto) 6, Eosinophils (%) (Auto) 2, Basophils (%) (Auto) 0, Neutrophils # (Auto) 6.3, Lymphocytes # (Auto) 1.3, Monocytes # (Auto) 0.5, Eosinophils # (Auto) 0.1, Basophils # (Auto) 0.0, Immature Granulocyte # (Auto) 0.0 RADHA YIN MD Mar 31, 2020 13:21
[2020-03-31] MEDS ORDERED: WITCH HAZEL(TUCKS) 40 EA JAR TOP PRN (13:30)
[2020-03-31] MEDS ORDERED: CATHETER FLUSH 10 ML SYR IV SCH (14:00)
[2020-03-31] MEDS ORDERED: IBUPROFEN 600 MG (MOTRIN) TAB PO ONE (14:46)
[2020-03-31] MEDS: IBUPROFEN 600 MG (MOTRIN) TAB PO SCH ×2 (14:51→20:32)
[2020-03-31] MEDS: BENZOCAINE/MENTHOL (DERMOPLAST) 60 ML CAN TP PRN (14:58)
--- NOTE | 2020-03-31 15:00 | NUR ---
Pt assisted to wheelchair. Pt transferred to PP room 312 accompanied by S.O., infant, RN and all personal belongings. Pt assisted to bed without incident. Denies need to void at this time. Pt and S.O. oriented to room and call light. packet explained. Pt denies further needs or concerns at this time.
[2020-03-31] MEDS: ACETAMINOPHEN 500 MG TAB (TYLENOL) PO SCH (17:01)
[2020-03-31] MEDS: DOCUSATE SODIUM 100 MG (COLACE) CAP PO SCH (20:32)
[2020-03-31] MEDS ORDERED: IBUP-844 PO (20:34)
[2020-04-01 00:13] VITALS: BP 119/83
[2020-04-01] MEDS: ACETAMINOPHEN 500 MG TAB (TYLENOL) PO SCH ×2 (00:13→09:13)
[2020-04-01] MEDS: IBUPROFEN 600 MG (MOTRIN) TAB PO SCH ×2 (01:52→09:12)
[2020-04-01 05:09] VITALS: BP 119/71
[2020-04-01 05:33] LABS: BASOPHILS % (AUTO) 0 % (0-10); EOSINOPHILS # (AUTO) 0.1 10^3/uL (0.0-0.3); EOSINOPHILS % (AUTO) 2 % (0-10); HEMATOCRIT 29 % (35-52); HEMOGLOBIN 10.1 g/dL (11.5-16.0); LYMPHOCYTES # (AUTO) 1.6 10^3/uL (1.0-4.0); LYMPHOCYTES % (AUTO) 18 % (12-44); MEAN CORPUSCULAR HEMOGLOBIN 31 pg (25-34); MEAN CORPUSCULAR HGB CONC 35 g/dL (32-36); MEAN CORPUSCULAR VOLUME 89 fL (80-99); MEAN PLATELET VOLUME 10.2 fL (9.0-12.2); MONOCYTES # (AUTO) 0.6 10^3/uL (0.0-1.0); MONOCYTES % (AUTO) 6 % (0-12); NEUTROPHILS # (AUTO) 6.5 10^3/uL (1.8-7.8); NEUTROPHILS % (AUTO) 74 % (42-75); PLATELET COUNT 147 10^3/uL (130-400); WHITE BLOOD COUNT 8.7 10^3/uL (4.3-11.0)
--- NOTE | 2020-04-01 06:34 | Discharge Summary ---
Discharge Summary Hospital Course Hospital Course Date of Admission: Mar 30, 2020 at 18:01 Admission Diagnosis : Induction of labor at 40 weeks gestation Family Physician/Provider: Radha Bates MD Date of Discharge: 04/01/20 Discharge Diagnosis: s/p vaginal delivery asymptomatic anemia Hospital Course: Pt admitted and had unremarkable induction, vaginal delivery and routine course. Labs and Pending Lab Test: Laboratory Tests 04/01/20 05:13: White Blood Count 8.7, Red Blood Count 3.30L, Hemoglobin 10.1L, Hematocrit 29L, Mean Corpuscular Volume 89, Mean Corpuscular Hemoglobin 31, Mean Corpuscular Hemoglobin Concent 35, Red Cell Distribution Width 12.9, Platelet Count 147, Mean Platelet Volume 10.2, Immature Granulocyte % (Auto) 1, Neutrophils (%) (Aut o) 74, Lymphocytes (%) (Auto) 18, Monocytes (%) (Auto) 6, Eosinophils (%) (Auto) 2, Basophils (%) (Auto) 0, Neutrophils # (Auto) 6.5, Lymphocytes # (Auto) 1.6, Monocytes # (Auto) 0.6, Eosinophils # (Auto) 0.1, Basophils # (Auto) 0.0, Immature Granulocyte # (Auto) 0.1 Home Meds Active Ibu (Ibuprofen) 600 Mg Tablet 600 Mg PO Q6HR PRN Reported Formula ( Vit W-Ca,Fe,FA(<1 mg)) 1 Each Tablet 1 Each PO Tylenol (Acetaminophen) 325 Mg Capsule 1,000 Mg PO Q6H Assessment/Pt DC Instructions Follow up with Dr. Bates in 6 weeks for visit. Discharge Diet: No Restrictions Activity as Tolerated: Yes (avoid strenuous activity x 6 weeks) Discharge Physical Examination Allergies: Coded Allergies: Penicillins (Verified Allergy, Severe, anaphylactic, 03/20/20) amoxicillin (Verified Allergy, Severe, anaphalytic, 03/20/20) cephalexin (Verified Allergy, Severe, anaphylatic , 03/20/20) cetirizine (Verified Allergy, Severe, seizures, 03/20/20) codeine (Verified Allergy, Severe, vomitting, chest pain, numbness, blurry vision, SOB, 03/20/20) divalproex sodium (Verified Allergy, Severe, Facial drooping, drooling, 03/20/20) fexofenadine (Verified Allergy, Severe, SEIZURES, 03/20/20) loratadine (Verified Allergy, Severe, seizures, 03/20/20) phenobarbital (Verified Allergy, Severe, Rash, vomitting, Seizures, ) aspirin (Verified Allergy, Mild, hives, rash, 03/20/20) carbamazepine (Verified Allergy, Mild, hyperactivity, 03/20/20) cefaclor (Verified Allergy, Mild, vomitting, 03/20/20) povidone-iodine (Verified Allergy, Mild, rash, hives, 03/20/20) tramadol (Verified Allergy, Unknown, 03/20/20) General Appearance: No Apparent Distress, WD/WN Respiratory: Lungs Clear, Normal Breath Sounds Cardiovascular: Regular Rate, Rhythm, No Edema, No Murmur Gastrointestinal: Other (fundus firm below umbilicus, nontender) Extremity: No Pedal Edema Skin: Normal Color, Warm/Dry Neurologic/Psychiatric: Alert, Normal Mood/Affect Copy Copies To 1: RADHA BATES MD, BETHANY N MD Apr 01, 2020 06:34
[2020-04-01] MEDS ORDERED: FERROUS SULF 325 MG (IRON) TAB PO SCH (07:00)
--- NOTE | 2020-04-01 07:44 | Anesthesia-Regional Post-Op ---
Regional Patient Condition Mental Status: Alert, Oriented x3 Circulation: Same as Pre-Op Headache: Absent Sensation: Full Recovery Motor Block: Absent Post Op Complications Complications None Follow Up Care/Instructions Patient Instructions None needed. Anesthesia/Patient Condition Patient is doing well, no complaints, stable vital signs, no apparent adverse anesthesia problems. No complications reported per nursing. GUTIERREZ LEWIS CRNA Apr 01, 2020 07:43
[2020-04-01 08:00] VITALS: BP 112/74
[2020-04-01] MEDS: DOCUSATE SODIUM 100 MG (COLACE) CAP PO SCH (09:13)
--- NOTE | 2020-04-01 09:14 | NUR ---
initial shift assessment completed, see interventions for further.
[2020-04-01 12:00] VITALS: BP 109/56
[2020-04-01] MEDS ORDERED: DCS100C PO (12:55)
[2020-04-01] MEDS ORDERED: FERR325T18 PO (12:55)
--- NOTE | 2020-04-01 13:34 | NUR ---
dismissal instructions given, verbalizes understanding. reviewed follow up appointment & dismissal Rx's. signature page signed- placed on chart.
[2020-04-01] MEDS: BENZOCAINE/MENTHOL (DERMOPLAST) 60 ML CAN TP PRN (14:34)
--- NOTE | 2020-04-01 15:30 | NUR ---
pt ambulated to private vehicle with staff, infant and s/o @ side. infant secured in rear facing car seat. pt stable with no sx's of distress noted.
--- NOTE | 2020-04-03 03:28 | Physician Query Clarification ---
PQ-Further Specificity Admission/Discharge Admission Date: Mar 30, 2020 at 18:01 Discharge Date: Apr 01, 2020 at 15:30 MORENA Armstrong MD The medical record reflects the following clinical scenario: History/Risk Factors: 19 y/o female with 40 weeks gestational age admitted for induction of labor, done spontaneous vaginal delivery. asymptomatic anemia documented in discharge summary. Clinical Findings: hgb-10.1 L, hct-29 L Treatment: Ferrous sulfate Question: Can you further specify Anemia per the clinical indicators above? Please document a response in the Progress Notes or Discharge Summary. 1. Acute blood loss anemia 2. Iron deficiency anemia 3. Other, with explanation of the clinical findings. 4. Clinically undetermined, no explanation for the clinical findings. PHYSICIAN RESPONSE Can you specify per above: 1 Please remember a lack of response to the above will prompt a phone page by CDI/Coding staff. In responding to this query, please exercise your independent professional judgment. The purpose of this communication is to more accurately reflect the complexity of your patients condition. The fact that a question is asked does not imply that any particular answer is desired or expected. Thank you for your timely response to this clarification. Requestors name: [ ] Phone # [ ] THIS PHYSICIAN QUERY FORM IS A PERMANENT PART OF THE MEDICAL RECORD RY RINALDI Apr 03, 2020 03:28 MORENA MORALES MD Apr 03, 2020 07:55
== END 2020-04-01 15:30 | disposition home or self-care (01) | DRG 807 ==
LOC: LDRP 18:01
PROVIDERS: ADMIT Family Medicine; ATTEND Family Medicine
PROC: 10E0XZZ Delivery of Products of Conception, External Approach (ICD-10-PCS; principal; 2020-03-31)
PROC: 10907ZC Drainage of Amniotic Fluid, Therapeutic from Products of Conception, Via Natural or Artificial Opening (ICD-10-PCS; 2020-03-31)
PROC: 0UQMXZZ Repair Vulva, External Approach (ICD-10-PCS; 2020-03-31)
DX: O48.0 Post-term pregnancy (principal); Z37.0 Single live birth; Z3A.40 40 weeks gestation of pregnancy; O90.81 Anemia of the puerperium; D64.9 Anemia, unspecified
CPT/HCPCS: 36415; 85025; 86850; 86900; 86901

== ENCOUNTER 2020-12-29 02:09 | Emergency (ER) | payer MEDICAID ==
[~2020-12-29 02:09] MED LIST changes: +DOCU-239 PO; +FERR325T18 PO; +IBUP-844 PO
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
[2020-12-29] MEDS ORDERED: NAPR500T8 PO (03:55)
[2020-12-29] MEDS ORDERED: NAPROXEN 250 MG (NAPROSYN) TABLET PO ONE (04:00)
[2020-12-29 04:01] VITALS: BP 120/89
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
== END 2020-12-29 04:01 | disposition home or self-care (01) ==
LOC: EDUNIT# 02:09 → ER 02:15
DX: S09.90XA Unspecified injury of head, initial encounter (principal); J45.909 Unspecified asthma, uncomplicated; R40.2410 Glasgow coma scale score 13-15, unspecified time; Z72.0 Tobacco use; W18.30XA Fall on same level, unspecified, initial encounter
CPT/HCPCS: 70450; 84703

== ENCOUNTER 2021-02-05 20:09 | Emergency (ER) | payer MEDICAID ==
[~2021-02-05] VITALS: Ht 170 cm; Wt 59.0 kg
[~2021-02-05 20:09] MED LIST changes: +CYCL10TA25 PO; -CYCL10TA9 PO; +NAPR500T8 PO
[2021-02-05 20:19] VITALS: BP 113/71
--- NOTE | 2021-02-05 20:42 | ED GU-Female ---
General Chief Complaint: General Problems/Pain Stated Complaint: POSITIVE TESTS/WANTS BLOOD TEST Nursing Triage Note: states she wants a test to confirm so she can establish care with tape coater reports positive test at home. Source: patient Exam Limitations: no limitations History of Present Illness Date Seen by Provider: Feb 05, 2021 Time Seen by Provider: 20:20 Initial Comments Patient ER by private conveyance with chief complaint that she had 3+ test on the ninth, 1 day ago. She called her OB provider at [facility] and they apparently told her that she will have to come out to the ER and show verification of proof of before they would make an appointment with the obstetricians. Patient is a G4, P2 with 1 miscarriage. She has breast fullness and tenderness, feeling that she is and last menstrual period was 01/01/2021 putting her at 5 weeks 0 days. Allergies and Home Medications Allergies Coded Allergies: Penicillins (Verified Allergy, Severe, anaphylactic, 03/20/20) amoxicillin (Verified Allergy, Severe, anaphalytic, 03/20/20) cephalexin (Verified Allergy, Severe, anaphylatic , 03/20/20) cetirizine (Verified Allergy, Severe, seizures, 03/20/20) codeine (Verified Allergy, Severe, vomitting, chest pain, numbness, blurry vision, SOB, 03/20/20) divalproex sodium (Verified Allergy, Severe, Facial drooping, drooling, 03/20/20) fexofenadine (Verified Allergy, Severe, SEIZURES, 03/20/20) loratadine (Verified Allergy, Severe, seizures, 03/20/20) phenobarbital (Verified Allergy, Severe, Rash, vomitting, Seizures, 03/20/20) aspirin (Verified Allergy, Mild, hives, rash, 03/20/20) carbamazepine (Verified Allergy, Mild, hyperactivity, 03/20/20) cefaclor (Verified Allergy, Mild, vomitting, 03/20/20) povidone-iodine (Verified Allergy, Mild, rash, hives, 03/20/20) tramadol (Verified Allergy, Unknown, 03/20/20) Patient Home Medication List Home Medication List Reviewed: Yes Acetaminophen (Tylenol) 325 Mg Capsule, 1,000 MG PO Q6H, (Reported) Entered as Reported by: ARMEN LOONEY on 03/04/202244 Docusate Sodium (Dok) 100 Mg Capsule, 100 MG PO BID Prescribed by: MORENA MORALES on 04/01/20 125 Ferrous Sulfate (Ferrous Sulfate) 325 Mg Tablet, 325 MG PO DAILY@0700 Prescribed by: MORENA MORALES on 04/01/20 125 Ibuprofen (Ibu) 600 Mg Tablet, 600 MG PO Q6HR PRN for PAIN-MODERATE (5-7) Prescribed by: MORENA MORALES on 03/31/202033 Naproxen (Naproxen) 500 Mg Tablet.dr, 500 MG PO BID Prescribed by: DAVE THURMAN on 12/29/20 0355 Vit W-Ca,Fe,FA(<1 mg) ( Formula) 1 Each Tablet, 1 EACH PO, (Reported) Entered as Reported by: ARMEN LOONEY on 03/04/202246 Review of Systems Review of Systems Constitutional: No chills, No diaphoresis EENTM: No hearing loss, No blurred vision Respiratory: No cough, No short of breath Cardiovascular: No chest pain, No palpitations Gastrointestinal: No abdominal pain, No nausea, No vomiting Genitourinary: denies burning, denies discharge Musculoskeletal: No back pain, No joint pain Skin: pruritus, rash All Other Systemes Reviewed Negative Unless Noted: Yes Past Nhairez-Ezkoii-Ycrcnl Hx Patient Social History Tobacco Use?: Yes Use of E-Cig and/or Vaping dev: Yes E-Cig or Vaping type used: Nicotine Substance use?: No Alcohol Use?: Yes Alcohol type: Wine Alcohol Frequency: Once in a while Pt feels they are or have been: No Immunizations Up To Date Tetanus Booster (TDap): Less than 5yrs PED Vaccines UTD: Yes Seasonal Allergies Seasonal Allergies: No Past Medical History Surgery/Hospitalization HX: seizures, radha, t/a, bmt Surgeries: Yes (TUBES IN EARS-"TOO MANY TO COUNT") Adenoidectomy, Ear Surgery, Gallbladder, Tonsillectomy Respiratory: Yes Asthma Cardiac: Yes Irregular Heartbeat Neurological: Yes Headaches /Migraines, Seizure Disorder Last Menstrual Period: Jan 01, 2021 Reproductive Disorders: Yes Female Reproductive Disorders: Menstrual Problems Sexually Transmitted Disease: No HIV/AIDS: No Genitourinary: Yes UTI-Chronic Gastrointestinal: Yes Chronic Diarrhea Musculoskeletal: Yes Back Injury, Chronic Back Pain Endocrine: No HEENT: Yes (MULTIPLE SETS OF BMT'S; T&A) Chronic Ear Infection, Tonsilitis Loss of Vision: Denies Hearing Impairment: Denies Cancer: No Psychosocial: Yes Anxiety, Bipolar, Depression Integumentary: Yes Eczema Blood Disorders: No Adverse Reaction/Blood Tranf: No Family Medical History Arthritis 19 MOTHER Asthma 19 MOTHER FH: diverticulitis 19 MOTHER FHx: supraventricular tachycardia 19 MOTHER Hypertension 19 MOTHER Physical Exam Vital Signs Vital Signs - First Documented 02/05/21 20:19 Temp 36.6 Pulse 110 Resp 18 B/P (MAP) 113/71 (85) Pulse Ox 99 O2 Delivery Room Air Capillary Refill : Less Than 3 Seconds Height, Weight, BMI Height: 5'7.00" Weight: 153lbs. 8.0oz. 69.810906vb; 20.00 BMI Method:Stated General Appearance: WD/WN, no apparent distress HEENT: PERRL/EOMI, pharynx normal Neck: full range of motion, normal inspection Cardiovascular: normal peripheral pulses, regular rate, rhythm Respiratory: no respiratory distress, no accessory muscle use Gastrointestinal: normal bowel sounds, non tender, soft Neurologic/Psychiatric: alert, normal mood/affect, oriented x 3 Skin: normal color, warm/dry Progress/Results/Core Measures Suspected Sepsis SIRS Temperature: Pulse: 110 Respiratory Rate: 18 Blood Pressure 113 /71 Mean: 85 Results/Orders Vital Signs/I&O 02/05/21 20:19 Temp 36.6 Pulse 110 Resp 18 B/P (MAP) 113/71 (85) Pulse Ox 99 O2 Delivery Room Air Capillary Refill : Less Than 3 Seconds Blood Pressure Mean: 85 Progress Note : Time: 20:49 Progress Note Discussed the case briefly with Dr. Zamora and clarified that the patient does not need nor have they ever required any pretest from the ER or other facility before they will schedule OB appointment. Clarified with the patient and encouraged her just to go out tomorrow morning and make an appointment in person . She is okay with this plan. Departure Impression Primary Impression: Qualified Codes: Z3A.01 - Less than 8 weeks gestation of Disposition: HOME, SELF-CARE Condition: Stable Departure-Patient Inst. Decision time for Depature: 20:51 Referrals: [facility] [place] (PCP/Family) Primary Care Physician Patient Instructions: Exercises That Are Safe in Add. Discharge Instructions: Follow-up tomorrow with [facility] to establish an appointment for OB care. All discharge instructions reviewed with patient and/or family. Voiced understanding. ABI RICHARDSON Feb 05, 2021 20:42
== END 2021-02-05 20:56 | disposition home or self-care (01) ==
LOC: EDUNIT# 20:09 → ER 20:10
DX: Z32.01 Encounter for pregnancy test, result positive (principal); J45.909 Unspecified asthma, uncomplicated; Z72.0 Tobacco use
CPT/HCPCS: 99281

== ENCOUNTER 2022-06-05 20:40 | Emergency (ER) | payer MEDICAID ==
[~2022-06-05] VITALS: Ht 172.7 cm; Wt 85.0 kg
[~2022-06-05 20:40] MED LIST changes: +ACET-11 PO; -ACET1TAB43 PO; +ALBU8.5H6 IH; -RT-ALBUINH IH
--- NOTE | 2022-06-05 21:08 | ED Abdominal Pain ---
General Chief Complaint: OB < 20 WEEKS Stated Complaint: ABD PAIN 12 WKS PREG Source of Information: Patient Exam Limitations: No Limitations History of Present Illness Date Seen by Provider: Jun 05, 2022 Time Seen by Provider: 21:09 Initial Comments Patient is a 21-year-old female who presents to the emergency room with a chief complaint of epigastric pain that she woke up with this morning. Pain has been intermittent off and on all day. She is not nauseous. She is not short of breath. She tends to be more constipated, did have a small bowel movement this morning. She is getting care from Dr. Bates at [facility]. No fevers or chills. No burning with urination, increased frequency or urgency. No abnormal vaginal discharge. Timing/Duration: 4-6 Hours Severity/Quality: Moderate, Aching, Cramping Location: Epigastric Radiation: No Radiation Activities at Onset: None Modifying Factors: Improves With Other (Lying flat worsens, sitting up feels better) Associated Symptoms: Denies Symptoms Allergies and Home Medications Allergies Coded Allergies: Penicillins (Verified Allergy, Severe, anaphylactic, 03/20/20) amoxicillin (Verified Allergy, Severe, anaphalytic, 03/20/20) cephalexin (Verified Allergy, Severe, anaphylatic , 03/20/20) cetirizine (Verified Allergy, Severe, seizures, 03/20/20) codeine (Verified Allergy, Severe, vomitting, chest pain, numbness, blurry vision, SOB, 03/20/20) divalproex sodium (Verified Allergy, Severe, Facial drooping, drooling, 03/20/20) fexofenadine (Verified Allergy, Severe, SEIZURES, 03/20/20) loratadine (Verified Allergy, Severe, seizures, 03/20/20) phenobarbital (Verified Allergy, Severe, Rash, vomitting, Seizures, 03/20/20) aspirin (Verified Allergy, Mild, hives, rash, 03/20/20) carbamazepine (Verified Allergy, Mild, hyperactivity, 03/20/20) cefaclor (Verified Allergy, Mild, vomitting, 03/20/20) povidone-iodine (Verified Allergy, Mild, rash, hives, 03/20/20) tramadol (Verified Allergy, Unknown, 03/20/20) Patient Home Medication List Home Medication List Reviewed: Yes Acetaminophen (Tylenol) 325 Mg Capsule, 1,000 MG PO Q6H, (Reported) Entered as Reported by: ARMEN LOONEY on 03/04/202244 Docusate Sodium (Dok) 100 Mg Capsule, 100 MG PO BID Prescribed by: MORENA MORALES on 04/01/20 125 Ferrous Sulfate (Ferrous Sulfate) 325 Mg Tablet, 325 MG PO DAILY@0700 Prescribed by: MORENA MORALES on 04/01/20 125 Ibuprofen (Ibu) 600 Mg Tablet, 600 MG PO Q6HR PRN for PAIN-MODERATE (5-7) Prescribed by: MORENA MORALES on 03/31/202033 Naproxen (Naproxen) 500 Mg Tablet.dr, 500 MG PO BID Prescribed by: DAVE THURMAN on 12/29/20 035 Vit W-Ca,Fe,FA(<1 mg) ( Formula) 1 Each Tablet, 1 EACH PO, (Reported) Entered as Reported by: ARMEN LOONEY on 03/04/202246 Review of Systems Review of Systems Constitutional: see HPI EENTM: No Symptoms Reported Respiratory: No Symptoms Reported Cardiovascular: No Symptoms Reported Gastrointestinal: Abdominal Pain Genitourinary: No Symptoms Reported Musculoskeletal: no symptoms reported Skin: no symptoms reported Psychiatric/Neurological: No Symptoms Reported All Other Systems Reviewed Negative Unless Noted: Yes Past Wscaxtl-Vyxwzs-Gbbqnn Hx Immunizations Up To Date Tetanus Booster (TDap): Less than 5yrs PED Vaccines UTD: Yes Seasonal Allergies Seasonal Allergies: No Past Medical History Surgery/Hospitalization HX: seizures, radha, t/a, bmt Surgeries: Yes (TUBES IN EARS-"TOO MANY TO COUNT") Adenoidectomy, Ear Surgery, Gallbladder, Tonsillectomy Respiratory: Yes Asthma Cardiac: Yes Irregular Heartbeat Neurological: Yes Headaches /Migraines, Seizure Disorder Reproductive Disorders: Yes Female Reproductive Disorders: Menstrual Problems Sexually Transmitted Disease: No HIV/AIDS: No Genitourinary: Yes UTI-Chronic Gastrointestinal: Yes Chronic Diarrhea Musculoskeletal: Yes Back Injury, Chronic Back Pain Endocrine: No HEENT: Yes (MULTIPLE SETS OF BMT'S; T&A) Chronic Ear Infection, Tonsilitis Loss of Vision: Denies Hearing Impairment: Denies Cancer: No Psychosocial: Yes Anxiety, Bipolar, Depression Integumentary: Yes Eczema Blood Disorders: No Adverse Reaction/Blood Tranf: No Family Medical History Arthritis 19 MOTHER Asthma 19 MOTHER FH: diverticulitis 19 MOTHER FHx: supraventricular tachycardia 19 MOTHER Hypertension 19 MOTHER Physical Exam Vital Signs Vital Signs - First Documented 06/05/22 21:17 Temp 36.8 Pulse 89 Resp 16 B/P (MAP) 115/67 (83) Capillary Refill : Height/Weight/BMI Height: 5'7.00" Weight: 153lbs. 8.0oz. 69.908774ct; 20.00 BMI Method:Stated General Appearance: WD/WN, no apparent distress HEENT: PERRL/EOMI Respiratory: lungs clear, normal breath sounds, no respiratory distress, no accessory muscle use Cardiovascular: regular rate, rhythm Gastrointestinal: soft, tenderness (Epigastric tenderness.) Extremities: normal range of motion, normal inspection Neurologic/Psychiatric: alert, normal mood/affect, oriented x 3 Skin: normal color, warm/dry Progress/Results/Core Measures Results/Orders Lab Results Laboratory Tests Test 06/05/22 21:21 Range/Units Urine Color YELLOW Urine Clarity CLEAR Urine pH 7.5 5-9 Urine Specific [place] 1.020 1.016-1.022 Urine Protein NEGATIVE NEGATIVE Urine Glucose (UA) NEGATIVE NEGATIVE Urine Ketones NEGATIVE NEGATIVE Urine Nitrite NEGATIVE NEGATIVE Urine Bilirubin NEGATIVE NEGATIVE Urine Urobilinogen 2.0 < = 1.0 MG/DL Urine Leukocyte Esterase NEGATIVE NEGATIVE Urine RBC (Auto) NEGATIVE NEGATIVE Urine RBC NONE /HPF Urine WBC RARE /HPF Urine Squamous Epithelial Cells 5-10 /HPF Urine Crystals PRESENT H /LPF Urine Amorphous Sediment FEW MARGARITA PHOSPHATE H /LPF Urine Bacteria FEW H /HPF Urine Casts NONE /LPF Urine Mucus MODERATE H /LPF Urine Culture Indicated NO My Orders Orders - SERENE MERIDA MD Ua Culture If Indicated (06/05/22 21:20) Acetaminophen Tablet (Tylenol Tablet) (06/05/22 21:30) Vital Signs/I&O 06/05/22 21:17 Temp 36.8 Pulse 89 Resp 16 B/P (MAP) 115/67 (83) Progress Progress Note : Progress Note Patient seen and evaluated by me, 21-year-old with epigastric discomfort. Ev aluation today includes a physical exam. Attempt was made to find heart tones with bedside Doppler however likely secondary to gestational age and patient body habitus we were unable to do so. I had been planning on getting the bedside ultrasound to evaluate heart tones however was pulled into a room with a critically ill patient. Patient became tired of waiting. She elected to leave the department AGAINST MEDICAL ADVICE. I was unable to assess heart tones. She left prior to my evaluation of her urinalysis. I was unable to provide return precautions. Clinically the patient appears stable. Normal vital signs. No concerning historical or physical exam findings for emergent related condition. Departure Impression Primary Impression: Epigastric abdominal pain Additional Impression: Qualified Codes: Z34.90 - Encounter for supervision of normal , unspecified, unspecified trimester Disposition: 07 AGAINST MEDICAL ADVICE Condition: Against Medical Advice Departure-Patient Inst. Referrals: [facility] (PCP/Family) Primary Care Physician SERENE MERIDA MD Jun 05, 2022 21:08
[2022-06-05 21:17] VITALS: BP 115/67
[2022-06-05 21:27] LABS: BILIRUBIN,URINE NEGATIVE (NEGATIVE); CLARITY,URINE CLEAR; COLOR,URINE YELLOW; GLUCOSE, URINE (UA) NEGATIVE (NEGATIVE); KETONES,URINE NEGATIVE (NEGATIVE); LEUKOCYTE ESTERASE ,URINE NEGATIVE (NEGATIVE); NITRITE,URINE NEGATIVE (NEGATIVE); PH,URINE 7.5 (5-9); PROTEIN,URINE NEGATIVE (NEGATIVE)
[2022-06-05] MEDS ORDERED: ACETAMINOPHEN 500 MG TAB (TYLENOL) PO ONE (21:30)
[2022-06-05 21:41] LABS: AMORPHOUS SEDIMENT,UR FEW AMOR PHOSPHATE /LPF; BACTERIA,URINE FEW /HPF; WBC,URINE RARE /HPF
== END 2022-06-05 22:41 | disposition left against medical advice (07) ==
LOC: EDUNIT# 20:40 → ER 20:43
DX: O26.891 Other specified pregnancy related conditions, first trimester (principal); R10.13 Epigastric pain; Z28.310 Unvaccinated for COVID-19; Z3A.12 12 weeks gestation of pregnancy; Z90.49 Acquired absence of other specified parts of digestive tract
CPT/HCPCS: 81000; 99283

== ENCOUNTER 2022-11-11 17:06 | Outpatient (CLI) | payer MEDICAID ==
[2022-11-11 17:24] VITALS: BP 13/75
[2022-11-11 17:45] VITALS: BP 110/74
[2022-11-11 17:55] LABS: BACTERIA,URINE MODERATE /HPF; BILIRUBIN,URINE NEGATIVE (NEGATIVE); CLARITY,URINE CLEAR; COLOR,URINE ORANGE; GLUCOSE, URINE (UA) NEGATIVE (NEGATIVE); KETONES,URINE TRACE (NEGATIVE); LEUKOCYTE ESTERASE ,URINE TRACE (NEGATIVE); NITRITE,URINE NEGATIVE (NEGATIVE); PROTEIN,URINE 1+ (NEGATIVE)
--- NOTE | 2022-11-14 08:28 | Physician Query-Final Dx ---
JEANNIE11/14/22 0828: Clinic Account Progress/Dx Physician Query: Please give diagnosis Please include # weeks gestation Date of Service Nov 11, 2022 at 17:06 YONG MONZON DO 11/15/22 1247: Clinic Account Progress/Dx DIAGNOSIS: Diagnosis 35 wk GA decreased movement with reassuring/reactive NST JEANNIE,FebNov 14, 2022 08:28 YONG MONZON DO Nov 15, 2022 12:47
== END 2022-11-11 18:25 | disposition home or self-care (01) ==
LOC: WSo 17:06 → LDRP 17:07 → WSo 18:25
PROVIDERS: ATTEND Family Medicine
DX: O36.8130 Decreased fetal movements, third trimester, not applicable or unspecified (principal); Z3A.35 35 weeks gestation of pregnancy
CPT/HCPCS: 81000; 87088; G0463; 99213

== ENCOUNTER 2022-12-06 06:45 | Inpatient (IN) | payer MEDICAID ==
[2022-12-06] VITALS (45 sets, daily range): BP systolic 101–140; BP diastolic 59–87
[~2022-12-06] VITALS: Ht 172.7 cm; Wt 92.4 kg
--- OUTSIDE RECORDS SUMMARY | 2022-12-06 06:48 | XMS REPORT ---
Author Author [facility] ter of [facility] ter of [facility] Address Unknown Phone Unavailable Care Team Providers Care Automotive Internet Sales Manager Name Role Phone MORENA MORALES Unavailable PROBLEMS Type Condition ICD9-CM Code [id number] Code Onset Dates Condition Status W/U Status Risk SNOMED Code Notes Problem Mild intermittent asthma without complication J45.20 confirmed 933992685 Problem Migraine without aura and without status migrainosus, not intractable G43.009 confirmed 380359489 Problem Allergic rhinitis, unspecified seasonality, unspecified trigger J30.9 confirmed 99642972 Problem Marijuana abuse F12.10 confirmed 35870959 Problem Intractable migraine with status migrainosus, unspecified migraine type G43.911 confirmed 935857192 Problem Tobacco use affecting in third trimester, antepartum O99.333 confirmed 381258689 Problem Seasonal allergies J30.2 confirmed 880307797 Problem Anxiety disorder, unspecified F41.9 confirmed 427096852 Problem Intractable epilepsy without status epilepticus, unspecified epilepsy type G40.919 confirmed 730223810 Problem Mild intermittent asthma with exacerbation J45.21 confirmed 221913172 Problem Abnormal menses N92.6 confirmed 942847013 Problem Tobacco use disorder F17.200 confirmed 286075462 Problem Tonsillar exudate J35.8 confirmed 070543645 ALLERGIES Allergen (clinical drug ingredient) Drug/Non Drug Allergy documented on EMR Reaction Allergy Type Onset Date Status Aura Unknown Drug Allergy Active amoxicillin Amoxicillin(NDC Code:[address]-3 1) hives Drug Allergy Active Penicillin Unknown Drug Allergy Active aspirin Aspirin(ND Code:[address]-8 6) Unknown Drug Allergy Active Influenza Vac Split Quad rash Drug Allergy Active ZyrTEC([facility] Code:[address]-6 4) Unknown Drug Allergy Active carbamazepine Tegretol([facility] Code:[address]-2 3) Unknown Drug Allergy Active phenobarbital Phenobarbital([facility] Code:[address]-5 6) Unknown Drug Allergy Active codeine / guaifenesin Codeine-Guaifenes in shortness of breath Drug Allergy Active Keflex hives Drug Allergy Active valproate Depakote([facility] Code:[address]-9 3) Unknown Drug Allergy Active ENCOUNTERS from 1999 to 2022-12-03 Encounter Location Date Provider Diagnosis [facility] [address] [facility] [id number] [place] [address] Nov, MORENA ANDREW Miscarriage O03.9 IMMUNIZATIONS Vaccine Route Administration Date Status dtap (history) Unknown Mar 16, 2001 Administered dtap (history) Unknown July 01, 2005 Administered boostrix tdap (history) Unknown May 12, 2018 Ad ministered poliovirus unspecified (history) Unknown Feb 14, 2000 Administered PRIVATE FLULAVAL QUAD 0.5ML (6 MO AND UP) 2018 Unknown Nov 16, 2018 Refused dtap (history) Unknown Feb 14, 2000 Administered dtap (history) Unknown Apr 18, 2000 Administered dtap (history) Unknown June 13, 2000 Administere d prevnar pcv 7 (history) Unknown Apr 18, 2000 Admi nistered poliovirus unspecified (history) Unknown Apr 18, 2000 Administered poliovirus unspecified (history) Unknown Feb 14, 2001 Administered hepatitis b pediatric (history) Unknown Dec 13 Administered hib (history) Unknown Dec 15, 2000 Administered hib (history) Unknown June 13, 2000 Administered hib (history) Unknown Apr 18, 2000 Administered hib (history) Unknown Feb 14, 2000 Administered prevnar pcv 7 (history) Unknown Dec 15, 2000 Admi nistered prevnar pcv 7 (history) Unknown September 18, 2000 Adm inistered prevnar pcv 7 (history) Unknown June 13, 2000 Ad ministered poliovirus unspecified (history) Unknown July 01, 2005 Administered hepatitis a (history) Unknown June 14, 2002 Admi nistered hepatitis a (history) Unknown August 14, 2009 Admin istered PRIVATE TDAP (BOOSTRIX) IM Intramuscular Feb 04, 2020 Administered PRIVATE TDAP (BOOSTRIX) IM Intramuscular Oct 06, 2022 Administered varivax (history) Unknown September 23, 2011 Administmerlin braswell hepatitis b pediatric (history) Unknown Jan 16 Administered tdap (history) Unknown May 26, 2011 Administere d hepatitis b pediatric (history) Unknown June 13, 2000 Administered tdap (history) Unknown August 23, 2019 Administered hepatitis a (history) Unknown Dec 21, 2001 Admini stered varicella (history) Unknown Dec 15, 2000 Administ ered mmr-II (history) Unknown Dec 15, 2000 Administere d mmr-II (history) Unknown July 01, 2005 Administere d SOCIAL HISTORY Sex Assigned At : Social History Observation Description Sex Assigned At Unknown Alcohol Screen (Audit-C) Question Answer Notes Did you have a drink containing alcohol in the p ast year? No Points 0 Interpretation Negative Cessation Question Answer Notes Date Tobacco Cessation Provided: 03/26/2020 Sexual History Question Answer Notes Had sex in the past 12 months (vaginal, oral, or anal)? Yes Last menstrual period 05/22/2019 Have you ever had a Sexually transmitted disease ? Yes Prevention strategies discussed: Other with Men only Use protection? No Other? No Syphilis? No Herpes? No GC? No Chlamydia? Yes PHQ2 Question Answer Notes In the last 2 weeks, how oft en have you had little interest or pleasure in doing things? Not at all In the last 2 weeks, how oft en have you been feeling down, depressed, or hopeless? Not at all Total PHQ2 Score 0 Tobacco use other than smoking: Question Answer Notes Are you an other tobacco user? No REASON FOR REFERRAL No Information MEDICATIONS Medication SIG (Take, Route, Frequency, Duration) Notes Start Date End Date Status 27-1 MG 1 tablet Orally Once a day Active Albuterol Sulfate 2.5 MG/0.5ML as directed Inhalation Activ e REASON FOR VISIT Future lab order MEDICAL (GENERAL) HISTORY Type Description Date Medical History Epilepsy Medical History Asthma Medical History Bipolar Disorder Medical History Seasonal allergies Medical History Unspecified episodic mood disord er Surgical History cholecystectomy Surgical History bilateral tubes in ears 2016 Surgical History tonsils and adenoids removed, t ubes placed in ears 2018 Hospitalization History surgeries Hospitalization History hospitalized as Hospitalization History Childbirth 05/12/18 Hospitalization History childbirth 03/31/20 MENTAL STATUS No Information ASSESSMENTS Encounter Date Diagnosis Assessment Notes Treatment Notes Treatment Clinical Notes Nov, Miscarriage (ICD-10 - O03.9) PLAN OF TREATMENT Next Appt Details Provider Name:RADHA YIN, 2 023-10-17 02:00:00 PM, [address], [place], [address], Insurance Providers Payer Name Payer Address Payer Phone Insured Name Patient Relationship to Insured Coverage Start Date Coverage End Date Subscriber Number Group Number [facility] [address] [facility] [id number] [phone] Ana Ritter Self - patient is the insured [id number]
--- OUTSIDE RECORDS SUMMARY | 2022-12-06 06:48 | XMS REPORT ---
Author Author [facility] ter of [facility] ter of [facility] Address Unknown Phone Unavailable Care Team Providers Care Glaze Carrier Name Role Phone MORENA MORAELS Unavailable PROBLEMS Type Condition ICD9-CM Code RLU01-IK Code Onset Dates Condition Status W/U Status Risk SNOMED Code Notes Problem Mild intermittent asthma without complication J45.20 confirmed 486374266 Problem Migraine without aura and without status migrainosus, not intractable G43.009 confirmed 058277974 Problem Allergic rhinitis, unspecified seasonality, unspecified trigger J30.9 confirmed 20413808 Problem Marijuana abuse F12.10 confirmed 43629369 Problem Intractable migraine with status migrainosus, unspecified migraine type G43.911 confirmed 436977126 Problem Tobacco use affecting in third trimester, antepartum O99.333 confirmed 119469612 Problem Seasonal allergies J30.2 confirmed 782844829 Problem Anxiety disorder, unspecified F41.9 confirmed 890250466 Problem Intractable epilepsy without status epilepticus, unspecified epilepsy type G40.919 confirmed 601021750 Problem Mild intermittent asthma with exacerbation J45.21 confirmed 789827575 Problem Abnormal menses N92.6 confirmed 693549441 Problem Tobacco use disorder F17.200 confirmed 937809166 Problem Tonsillar exudate J35.8 confirmed 056839735 ALLERGIES Allergen (clinical drug ingredient) Drug/Non Drug Allergy documented on EMR Reaction Allergy Type Onset Date Status Aura Unknown Drug Allergy Active amoxicillin Amoxicillin(NDC Code:[address]-7 1) hives Drug Allergy Active Penicillin Unknown Drug Allergy Active aspirin Aspirin(ND Code:[address]-1 6) Unknown Drug Allergy Active Influenza Vac Split Quad rash Drug Allergy Active ZyrTEC([facility] Code:[address]-3 4) Unknown Drug Allergy Active carbamazepine Tegretol([facility] Code:[address]-5 3) Unknown Drug Allergy Active phenobarbital Phenobarbital([facility] Code:[address]-1 6) Unknown Drug Allergy Active codeine / guaifenesin Codeine-Guaifenes in shortness of breath Drug Allergy Active Keflex hives Drug Allergy Active valproate Depakote([facility] Code:[address]-5 3) Unknown Drug Allergy Active ENCOUNTERS from 1999 to 2022-11-27 Encounter Location Date Provider Diagnosis [facility] [address] [place] [address] 08 Nov, 2020 MORENA BELTRANOCH 5 weeks gestation of Z3A.01 and First trimester Z34.91 IMMUNIZATIONS Vaccine Route Administration Date Status hepatitis b pediatric (history) Unknown Jan 16 Administered hepatitis b pediatric (history) Unknown Dec 13 Administered hib (history) Unknown Dec 15, 2000 Administered hib (history) Unknown June 13, 2000 Administered hepatitis a (history) Unknown August 14, 2009 Admin istered hepatitis a (history) Unknown June 14, 2002 Admi nistered hepatitis a (history) Unknown Dec 21, 2001 Admini stered hepatitis b pediatric (history) Unknown June 13, 2000 Administered PRIVATE TDAP (BOOSTRIX) IM Intramuscular Oct 06, 2022 Administered hib (history) Unknown Apr 18, 2000 Administered hib (history) Unknown Feb 14, 2000 Administered poliovirus unspecified (history) Unknown Feb 14, 2000 Administered poliovirus unspecified (history) Unknown Apr 18, 2000 Administered poliovirus unspecified (history) Unknown Feb 14, 2001 Administered poliovirus unspecified (history) Unknown July 01, 2005 Administered varivax (history) Unknown September 23, 2011 Administe red tdap (history) Unknown May 26, 2011 Administere d tdap (history) Unknown August 23, 2019 Administered boostrix tdap (history) Unknown May 12, 2018 Ad ministered prevnar pcv 7 (history) Unknown Dec 15, 2000 Admi nistered dtap (history) Unknown Apr 18, 2000 Administered dtap (history) Unknown Feb 14, 2000 Administered PRIVATE FLULAVAL QUAD 0.5ML (6 MO AND UP) 2019 Unknown Nov 16, 2018 Refused mmr-II (history) Unknown July 01, 2005 Administere d prevnar pcv 7 (history) Unknown September 18, 2000 Adm inistered dtap (history) Unknown July 01, 2005 Administered prevnar pcv 7 (history) Unknown June 13, 2000 Ad ministered dtap (history) Unknown Mar 16, 2001 Administered prevnar pcv 7 (history) Unknown Apr 18, 2000 Admi nistered dtap (history) Unknown June 13, 2000 Administere d mmr-II (history) Unknown Dec 15, 2000 Administere d varicella (history) Unknown Dec 15, 2000 Administ robert PRIVATE TDAP (BOOSTRIX) IM Intramuscular Feb 04, 2020 Administered SOCIAL HISTORY Sex Assigned At : Social [...] user? No REASON FOR REFERRAL No Information VITAL SIGNS Height 68 in Nov, Weight 154.1 lbs Nov, Weight-kg 69.9 kg Nov, Temperature 97.4 degrees Fahrenheit Nov, Heart Rate 81 bpm Nov, Respiratory Rate 18 bpm Nov, Oximetry 97 % Nov, BMI 23.43 kg/m2 Nov, Blood pressure systolic 110 mmHg Nov, Blood pressure diastolic 80 mmHg Nov, MEDICATIONS Medication SIG (Take, Route, Frequency, Duration) Notes Start Date End Date Status Albuterol Sulfate 2.5 MG/0.5ML as directed Inhalation Activ e 27-1 MG 1 tablet Orally Once a day Active PROCEDURES from 1999 to 2022-11-27 Procedure Date Ordered Date Performed Result Body Sit e ROUTINE VENIPUNCTURE 2020-12-04 2020-12-04 N/A REASON FOR VISIT [id number] MEDICAL (GENERAL) HISTORY Type Description Date Medical [...] Notes Treatment Notes Treatment Clinical Notes Nov, First trimester (ICD-10 - Z34.91) Nov, 5 weeks gestation of (ICD-10 - Z3A.01) PLAN OF TREATMENT Next Appt Details 1 Week Reason: Provider Name:RADHA YIN 2 02:00:00 PM, [address] [place], [address], Provider Name:RADHA YIN 2 02:20:00 PM, [address] [place], [address], Provider Name:RADHA YIN 02:00:00 PM, [address] [place], [address], Insurance Providers Payer Name Payer Address Payer Phone Insured Name Patient Relationship to Insured Coverage Start Date Coverage End Date Subscriber Number Group Number [facility] [address] [facility] [id number] Ana Ritter Self - patient is the insured [id number]
--- OUTSIDE RECORDS SUMMARY | 2022-12-06 06:48 | XMS REPORT ---
Author Author [facility] ter of [facility] ter of [facility] Address Unknown Phone Unavailable Care Team Providers Care Home Health Clinical Supervisor Name Role Phone YONG MONZON Unavailable PROBLEMS Type Condition ICD9-CM Code [id number] Code Onset Dates Condition Status W/U Status Risk SNOMED Code Notes Problem Mild intermittent asthma without complication J45.20 confirmed 017611937 Problem Migraine without aura and without status migrainosus, not intractable G43.009 confirmed 646693085 Problem Allergic rhinitis, unspecified seasonality, unspecified trigger J30.9 confirmed 44217620 Problem Marijuana abuse F12.10 confirmed 05000289 Problem Intractable migraine with status migrainosus, unspecified migraine type G43.911 confirmed 873030634 Problem Tobacco use affecting in third trimester, antepartum O99.333 confirmed 585701156 Problem Seasonal allergies J30.2 confirmed 180987643 Problem Anxiety disorder, unspecified F41.9 confirmed 283739454 Problem Intractable epilepsy without status epilepticus, unspecified epilepsy type G40.919 confirmed 453572878 Problem Mild intermittent asthma with exacerbation J45.21 confirmed 370715460 Problem Abnormal menses N92.6 confirmed 595148236 Problem Tobacco use disorder F17.200 confirmed 124184593 Problem Tonsillar exudate J35.8 confirmed 565798053 ALLERGIES Allergen (clinical drug ingredient) Drug/Non Drug Allergy documented on EMR Reaction Allergy Type Onset Date Status Aura Unknown Drug Allergy Active amoxicillin Amoxicillin(NDC Code:[address]-5 1) hives Drug Allergy Active Penicillin Unknown Drug Allergy Active aspirin Aspirin(ND Code:[address]-3 6) Unknown Drug Allergy Active Influenza Vac Split Quad rash Drug Allergy Active ZyrTEC([facility] Code:[address]-3 4) Unknown Drug Allergy Active carbamazepine Tegretol([facility] Code:[address]-5 3) Unknown Drug Allergy Active phenobarbital Phenobarbital([facility] Code:[address]-3 6) Unknown Drug Allergy Active codeine / guaifenesin Codeine-Guaifenes in shortness of breath Drug Allergy Active Keflex hives Drug Allergy Active valproate Depakote([facility] Code:[address]-1 3) Unknown Drug Allergy Active ENCOUNTERS from 1999 to 2022-11-27 Encounter Location Date Provider Diagnosis [facility] [address] [facility] [id number] [place] [address] 11 Nov, 2020 YONG MONZON First trimester Z34.91 IMMUNIZATIONS Vaccine Route Administration Date Status hib (history) Unknown Dec 15, 2000 Administered hib (history) Unknown June 13, 2000 Administered hib (history) Unknown Apr 18, 2000 Administered hib (history) Unknown Feb 14, 2000 Administered hepatitis a (history) Unknown Dec 21, 2001 Admini stered hepatitis b pediatric (history) Unknown June 13, 2000 Administered hepatitis b pediatric (history) Unknown Jan 16 Administered hepatitis b pediatric (history) Unknown Dec 13 Administered PRIVATE TDAP (BOOSTRIX) IM Intramuscular Oct 06, 2022 Administered prevnar pcv 7 (history) Unknown Dec 15, 2000 Admi nistered prevnar pcv 7 (history) Unknown September 18, 2000 Adm inistered poliovirus unspecified (history) Unknown Feb 14, 2000 Administered poliovirus unspecified (history) Unknown Apr 18, 2000 Administered poliovirus unspecified (history) Unknown Feb 14, 2001 Administered poliovirus unspecified (history) Unknown July 01, 2005 Administered varivax (history) Unknown September 23, 2011 Administe red tdap (history) Unknown May 26, 2011 Administere d tdap (history) Unknown August 23, 2019 Administered PRIVATE FLULAVAL QUAD 0.5ML (6 MO AND UP) 2018 Unknown Nov 16, 2018 Refused prevnar pcv 7 (history) Unknown June 13, 2000 Ad ministered dtap (history) Unknown Apr 18, 2000 Administered dtap (history) Unknown Feb 14, 2000 Administered mmr-II (history) Unknown July 01, 2005 Administere d mmr-II (history) Unknown Dec 15, 2000 Administere d prevnar pcv 7 (history) Unknown Apr 18, 2000 Admi nistered dtap (history) Unknown July 01, 2005 Administered boostrix tdap (history) Unknown May 12, 2018 Ad ministered dtap (history) Unknown Mar 16, 2001 Administered PRIVATE TDAP (BOOSTRIX) IM Intramuscular Feb 04, 2020 Administered dtap (history) Unknown June 13, 2000 Administere d varicella (history) Unknown Dec 15, 2000 Administ ered hepatitis a (history) Unknown August 14, 2009 Admin istered hepatitis a (history) Unknown June 14, 2002 Admi nistered SOCIAL HISTORY Sex Assigned At : Social [...] 1 tablet Orally Once a day Active REASON FOR VISIT Lab (walk-in) MEDICAL (GENERAL) HISTORY Type Description Date Medical History Epilepsy Medical History Asthma Medical History Bipolar Disorder Medical History Seasonal allergies Medical History Unspecified episodic mood disord er Surgical History cholecystectomy Surgical History bilateral tubes in ears 2016 Surgical History tonsils and adenoids removed, t ubes placed in ears 2018 Hospitalization History surgeries Hospitalization History hospitalized as infant Hospitalization History Childbirth 05/12/18 Hospitalization History childbirth 03/31/20 MENTAL STATUS No Information ASSESSMENTS Encounter Date Diagnosis Assessment Notes Treatment Notes Treatment Clinical Notes Nov, First trimester (ICD-10 - Z34.91) PLAN OF TREATMENT Next Appt Details Provider Name:RADHA ANNAMARIA, 2 02:00:00 PM, [address], [place], [address], Provider Name:RADHA ANNAMARIA, 2 02:20:00 PM, [address] [place], [address], Provider Name:RADHA YIN, 2 02:00:00 PM, [address], [place], [address], Insurance Providers Payer Name Payer Address Payer Phone Insured Name Patient Relationship to Insured Coverage Start Date Coverage End Date Subscriber Number Group Number [employer] [facility] [address] [facility] [address] Ana Ritter Self - patient is the insured [id number]
--- OUTSIDE RECORDS SUMMARY | 2022-12-06 06:49 | XMS REPORT ---
Author Author [facility] ter of [facility] ter of [facility] Address Unknown Phone Unavailable Care Team Providers Care Director Day Care Center Name Role Phone RADHA YIN Unavailable PROBLEMS Type Condition ICD9-CM Code WPV31-QZ Code Onset Dates Condition Status W/U Status Risk SNOMED Code Notes Problem Mild intermittent asthma without complication J45.20 confirmed 477853447 Problem Migraine without aura and without status migrainosus, not intractable G43.009 confirmed 259009847 Problem Allergic rhinitis, unspecified seasonality, unspecified trigger J30.9 confirmed 71445302 Problem Marijuana abuse F12.10 confirmed 48566072 Problem Intractable migraine with status migrainosus, unspecified migraine type G43.911 confirmed 672417847 Problem Tobacco use affecting in third trimester, antepartum O99.333 confirmed 133446103 Problem Seasonal allergies J30.2 confirmed 681907072 Problem Anxiety disorder, unspecified F41.9 confirmed 108326611 Problem Intractable epilepsy without status epilepticus, unspecified epilepsy type G40.919 confirmed 791558321 Problem Mild intermittent asthma with exacerbation J45.21 confirmed 957072328 Problem Abnormal menses N92.6 confirmed 114239040 Problem Tobacco use disorder F17.200 confirmed 588387671 Problem Tonsillar exudate J35.8 confirmed 149639802 ALLERGIES Allergen (clinical drug ingredient) Drug/Non Drug Allergy documented on EMR Reaction Allergy Type Onset Date Status Aura Unknown Drug Allergy Active amoxicillin Amoxicillin([facility] Code:[address]-7 1) hives Drug Allergy Active valproate Depakote([facility] Code:[address]-5 3) Unknown Drug Allergy Active aspirin Aspirin([facility] Code:[address]-4 3) Unknown Drug Allergy Active Influenza Vac Split Quad rash Drug Allergy Active ZyrTEC([facility] Code:[address]-3 4) Unknown Drug Allergy Active carbamazepine Tegretol([facility] Code:[address]-2 3) Unknown Drug Allergy Active phenobarbital Phenobarbital([facility] Code:[address]-7 1) Unknown Drug Allergy Active codeine / guaifenesin Codeine-Guaifenes in shortness of breath Drug Allergy Active Keflex hives Drug Allergy Active IMMUNIZATIONS Vaccine Route Administration Date Status dtap [...] (history) Unknown September 23, 2011 Administe red hepatitis b pediatric (history) Unknown Jan 16 [...] Duration) Notes Start Date End Date Status Ondansetron 4 MG 1 tablet on the tong ue and allow to dissolve Orally every 6 hours as needed for 5 days Dec, Active 27-1 MG 1 tablet Orally Once a day Active Albuterol Sulfate 2.5 MG/0.5ML as directed Inhalation Activ e hydrOXYzine HCl 10 MG 1 tablet as needed Orally Once a day for 30 days Sep, Active REASON FOR VISIT OB f/u MEDICAL (GENERAL) HISTORY Type Description Date Medical [...] History childbirth 03/31/20 MENTAL STATUS No Information PLAN OF TREATMENT Medication Medication Name Sig Start Date Stop Date hydrOXYzine HCl 10 MG 1 tablet as needed Orally Once a day for 30 days Sep, Next Appt Details Provider Name:RADHA YIN, 2 09:00:00 AM, [address], [place], [address], Provider Name:ABDIEL HOPSON , 2022-11-07 02:00:00 PM, [address] [facility], [place], [address], Provider Name:RADHA ANNAMARIA, 2 09:00:00 AM, [address] [facility], [place], [address], Insurance Providers Payer Name Payer Address Payer Phone Insured Name Patient Relationship to Insured Coverage Start Date Coverage End Date Subscriber Number Group Number [employer] [facility] [address] [facility] [address] Ana Ritter Self - patient is the insured [id number]
--- OUTSIDE RECORDS SUMMARY | 2022-12-06 06:49 | XMS REPORT ---
Author Author [facility] ter of [facility] ter of [facility] Address Unknown Phone Unavailable Care Team Providers Care Mutuel Department Manager Name Role Phone MORENA MORALES Unavailable PROBLEMS Type Condition ICD9-CM Code [id number] Code Onset Dates Condition Status W/U Status Risk SNOMED Code Notes Problem Mild intermittent asthma without complication J45.20 confirmed 656530385 Problem Migraine without aura and without status migrainosus, not intractable G43.009 confirmed 874946125 Problem Allergic rhinitis, unspecified seasonality, unspecified trigger J30.9 confirmed 28994042 Problem Marijuana abuse F12.10 confirmed 51957481 Problem Intractable migraine with status migrainosus, unspecified migraine type G43.911 confirmed 045334219 Problem Tobacco use affecting in third trimester, antepartum O99.333 confirmed 030462753 Problem Seasonal allergies J30.2 confirmed 429335834 Problem Anxiety disorder, unspecified F41.9 confirmed 789245294 Problem Intractable epilepsy without status epilepticus, unspecified epilepsy type G40.919 confirmed 541702460 Problem Mild intermittent asthma with exacerbation J45.21 confirmed 291094995 Problem Abnormal menses N92.6 confirmed 028288404 Problem Tobacco use disorder F17.200 confirmed 696693293 Problem Tonsillar exudate J35.8 confirmed 681454825 ALLERGIES Allergen (clinical drug ingredient) Drug/Non Drug Allergy documented on EMR Reaction Allergy Type Onset Date Status Aura Unknown Drug Allergy Active amoxicillin Amoxicillin([facility] Code:[address]-8 1) hives Drug Allergy Active Penicillin Unknown Drug Allergy Active aspirin Aspirin([facility] Code:[address]-6 6) Unknown Drug Allergy Active Influenza Vac Split Quad rash Drug Allergy Active ZyrTEC([facility] Code:[address]-7 4) Unknown Drug Allergy Active carbamazepine Tegretol([facility] Code:[address]-6 3) Unknown Drug Allergy Active phenobarbital Phenobarbital([facility] Code:[address]-1 8) Unknown Drug Allergy Active codeine / guaifenesin Codeine-Guaifenes in shortness of breath Drug Allergy Active Keflex hives Drug Allergy Active valproate Depakote([facility] Code:[address]-1 3) Unknown Drug Allergy Active ENCOUNTERS from 1999 to 2022-11-19 Encounter Location Date Provider Diagnosis [facility] [address] [place] [address] Nov, MORENA MORALES IMMUNIZATIONS Vaccine Route Administration Date Status dtap [...] varivax (history) Unknown September 23, 2011 Administe michaelle hepatitis b pediatric (history) Unknown Jan 16 [...] Once a day Active REASON FOR VISIT *OB Concerns MEDICAL (GENERAL) HISTORY Type Description Date Medical History Epilepsy Medical History Asthma Medical History Bipolar Disorder Medical History Seasonal allergies Medical History Unspecified episodic mood disord er Surgical History cholecystectomy Surgical History bilateral tubes in ears 2016 Surgical History tonsils and adenoids removed, t ubes placed in ears 2019 Hospitalization History surgeries Hospitalization History hospitalized as infant Hospitalization History Childbirth 05/12/18 Hospitalization History childbirth 03/31/20 MENTAL STATUS No Information PLAN OF TREATMENT Next Appt Details Provider Name:RADHA YIN, 2 023-09- 02:00:00 PM, [address], [place], [address], Provider Name:RADHA YIN, 2 02:00:00 PM, [address], [place], [address], Provider Name:RADHA YIN, 2 02:20:00 PM, [address], [place], [address], Provider Name:RADHA YIN, 2 02:00:00 PM, [address], [place], [address], Insurance Providers Payer Name Payer Address Payer Phone Insured Name Patient Relationship to Insured Coverage Start Date Coverage End Date Subscriber Number Group Number [employer] [facility] [address] [facility] [address] Ana Ritter Self - patient is the insured [id number]
--- OUTSIDE RECORDS SUMMARY | 2022-12-06 06:49 | XMS REPORT ---
Author Author [facility] ter of [facility] ter of [facility] Address Unknown Phone Unavailable Care Team Providers Care Surveyor Mine Name Role Phone RADHA YIN Unavailable PROBLEMS Type Condition ICD9-CM Code INP53-HH Code Onset Dates Condition Status W/U Status Risk SNOMED Code Notes Problem Mild intermittent asthma without complication J45.20 confirmed 707851320 Problem Migraine without aura and without status migrainosus, not intractable G43.009 confirmed 642612414 Problem Allergic rhinitis, unspecified seasonality, unspecified trigger J30.9 confirmed 82934939 Problem Marijuana abuse F12.10 confirmed 77363520 Problem Intractable migraine with status migrainosus, unspecified migraine type G43.911 confirmed 290851254 Problem Tobacco use affecting in third trimester, antepartum O99.333 confirmed 445916872 Problem Seasonal allergies J30.2 confirmed 228832371 Problem Anxiety disorder, unspecified F41.9 confirmed 623297610 Problem Intractable epilepsy without status epilepticus, unspecified epilepsy type G40.919 confirmed 842708663 Problem Mild intermittent asthma with exacerbation J45.21 confirmed 599879939 Problem Abnormal menses N92.6 confirmed 025874195 Problem Tobacco use disorder F17.200 confirmed 026535369 Problem Tonsillar exudate J35.8 confirmed 970882321 ALLERGIES Allergen (clinical drug ingredient) Drug/Non Drug Allergy documented on EMR Reaction Allergy Type Onset Date Status Aura Unknown Drug Allergy Active amoxicillin Amoxicillin([facility] Code:[address]-2 1) hives Drug Allergy Active valproate Depakote([facility] Code:[address]-4 3) Unknown Drug Allergy Active aspirin Aspirin([facility] Code:[address]-6 3) Unknown Drug Allergy Active Influenza Vac Split Quad rash Drug Allergy Active ZyrTEC([facility] Code:[address]-1 4) Unknown Drug Allergy Active carbamazepine Tegretol([facility] Code:[address]-4 3) Unknown Drug Allergy Active phenobarbital Phenobarbital([facility] Code:[address]-1 1) Unknown Drug Allergy Active codeine / [...] 30 days Sep, Active REASON FOR VISIT OB- MEDICAL (GENERAL) HISTORY Type Description Date Medical [...] Assessment Notes Treatment Notes Treatment Clinical Notes Apr, Other Patient may res ume normal activities. Discussed contraceptive options I recommend you download the [facility] colleen or log on to the [facility] Patient Portal. Accessing the colleen or the portal will give you more access to your personal health information (such as lab results, appointment information, etc) and will allow you to actively participate in your healthcare. I recommend you download the [employer] colleen or log on to the [facility] Patient Portal. Accessing the colleen or the portal will give you more access to your personal health information (such as lab results, appointment information, etc) and will allow you to actively participate in your healthcare. PLAN OF TREATMENT Medication Medication Name Sig Start Date Stop Date hydrOXYzine HCl 10 MG 1 tablet as needed Orally Once a day for 30 days Sep, Next Appt Details Provider Name:RADHA YIN, 2 09:00:00 AM, [address], [place], [address], Provider Name:ABDIEL HOPSON , 2022-11-07 02:00:00 PM, [address] , [place], [address], Provider Name:RADHA YIN, 2 09:00:00 AM, [address] [place], [address], Insurance Providers Payer Name Payer Address Payer Phone Insured Name Patient Relationship to Insured Coverage Start Date Coverage End Date Subscriber Number Group Number [employer] [facility] [address] [facility] [address] Ana Ritter Self - patient is the insured [id number]
--- OUTSIDE RECORDS SUMMARY | 2022-12-06 06:49 | XMS REPORT ---
Author Author [facility] ter of [facility] ter of [facility] Address Unknown Phone Unavailable Care Team Providers Care Jewelry Model Maker Name Role Phone JERRY Reyes Unavailable PROBLEMS Type Condition ICD9-CM Code YYU47-HS Code Onset Dates Condition Status W/U Status Risk SNOMED Code Notes Problem Mild intermittent asthma without complication J45.20 confirmed 358782725 Problem Migraine without aura and without status migrainosus, not intractable G43.009 confirmed 086990496 Problem Allergic rhinitis, unspecified seasonality, unspecified trigger J30.9 confirmed 65555058 Problem Marijuana abuse F12.10 confirmed 87877293 Problem Intractable migraine with status migrainosus, unspecified migraine type G43.911 confirmed 143584343 Problem Tobacco use affecting in third trimester, antepartum O99.333 confirmed 687930547 Problem Seasonal allergies J30.2 confirmed 164890250 Problem Anxiety disorder, unspecified F41.9 confirmed 874172428 Problem Intractable epilepsy without status epilepticus, unspecified epilepsy type G40.919 confirmed 555357201 Problem Mild intermittent asthma with exacerbation J45.21 confirmed 761814614 Problem Abnormal menses N92.6 confirmed 402384091 Problem Tobacco use disorder F17.200 confirmed 302353812 Problem Tonsillar exudate J35.8 confirmed 577873625 ALLERGIES Allergen (clinical drug ingredient) Drug/Non Drug Allergy documented on EMR Reaction Allergy Type Onset Date Status Aura Unknown Drug Allergy Active amoxicillin Amoxicillin([facility] Code:[address]-1 1) hives Drug Allergy Active valproate Depakote([facility] Code:[address]-4 3) Unknown Drug Allergy Active aspirin Aspirin([facility] Code:[address]-7 3) Unknown Drug Allergy Active Influenza Vac Split Quad rash Drug Allergy Active ZyrTEC([facility] Code:[address]-6 4) Unknown Drug Allergy Active carbamazepine Tegretol([facility] Code:[address]-9 3) Unknown Drug Allergy Active phenobarbital Phenobarbital([facility] Code:[address]-3 1) Unknown Drug Allergy Active codeine / [...] 30 days Sep, Active REASON FOR VISIT Medical Service Representative MEDICAL (GENERAL) HISTORY Type Description Date Medical [...] Name:RADHA YIN, 2 09:00:00 AM, [address], [place], [address], Provider Name:ABDIEL HOPSON , 2022-11-07 02:00:00 PM, [address] [place], [address], Provider Name:RADHA CHANARINDER, 2 09:00:00 AM, [address] [place], [address], Insurance Providers Payer Name Payer Address Payer Phone Insured Name Patient Relationship to Insured Coverage Start Date Coverage End Date Subscriber Number Group Number [employer] [facility] [address] [facility] [address] Aan Ritter Self - patient is the insured [id number]
--- OUTSIDE RECORDS SUMMARY | 2022-12-06 06:49 | XMS REPORT ---
Author Author [facility] ter of [facility] ter of [facility] Address Unknown Phone Unavailable Care Team Providers Care Egg Caser Name Role Phone RADHA YIN Unavailable PROBLEMS Type Condition ICD9-CM Code UBR13-VZ Code Onset Dates Condition Status W/U Status Risk SNOMED Code Notes Problem Mild intermittent asthma without complication J45.20 confirmed 770792039 Problem Migraine without aura and without status migrainosus, not intractable G43.009 confirmed 486087858 Problem Allergic rhinitis, unspecified seasonality, unspecified trigger J30.9 confirmed 06264863 Problem Marijuana abuse F12.10 confirmed 48741097 Problem Intractable migraine with status migrainosus, unspecified migraine type G43.911 confirmed 281604140 Problem Tobacco use affecting in third trimester, antepartum O99.333 confirmed 795195142 Problem Seasonal allergies J30.2 confirmed 046646900 Problem Anxiety disorder, unspecified F41.9 confirmed 120745877 Problem Intractable epilepsy without status epilepticus, unspecified epilepsy type G40.919 confirmed 960193074 Problem Mild intermittent asthma with exacerbation J45.21 confirmed 795003573 Problem Abnormal menses N92.6 confirmed 711591993 Problem Tobacco use disorder F17.200 confirmed 633622650 Problem Tonsillar exudate J35.8 confirmed 227192994 ALLERGIES Allergen (clinical drug ingredient) Drug/Non Drug Allergy documented on EMR Reaction Allergy Type Onset Date Status Aura Unknown Drug Allergy Active amoxicillin Amoxicillin([facility] Code:[address]-3 1) hives Drug Allergy Active valproate Depakote([facility] Code:[address]-9 3) Unknown Drug Allergy Active aspirin Aspirin([facility] Code:[address]-6 3) Unknown Drug Allergy Active Influenza Vac Split Quad rash Drug Allergy Active ZyrTEC([facility] Code:[address]-7 4) Unknown Drug Allergy Active carbamazepine Tegretol([facility] Code:[address]-5 3) Unknown Drug Allergy Active phenobarbital Phenobarbital([facility] Code:[address]-9 1) Unknown Drug Allergy Active codeine / [...] days Sep, Active REASON FOR VISIT OB Acute - Hip Pain MEDICAL (GENERAL) HISTORY Type Description Date Medical [...] Name:RADHA YIN, 2 09:00:00 AM, [address], [place], [address], Provider Name:ABDIEL HOPSON , 2022-11-07 02:00:00 PM, [address] [place], [address], Provider Name:RADHA CHANARINDER, 2 09:00:00 AM, [address] [place], [address], Insurance Providers Payer Name Payer Address Payer Phone Insured Name Patient Relationship to Insured Coverage Start Date Coverage End Date Subscriber Number Group Number [employer]NA [facility] [address] [facility] [address] Ana Ritter Self - patient is the insured [id number]
--- OUTSIDE RECORDS SUMMARY | 2022-12-06 06:49 | XMS REPORT ---
Author Author [facility] ter of [facility] ter of [facility] Address Unknown Phone Unavailable Care Team Providers Care Industrial Gas Service Helper Name Role Phone JERRY Reyes Unavailable PROBLEMS Type Condition ICD9-CM Code QCS25-HA Code Onset Dates Condition Status W/U Status Risk SNOMED Code Notes Problem Mild intermittent asthma without complication J45.20 confirmed 279955590 Problem Migraine without aura and without status migrainosus, not intractable G43.009 confirmed 513891065 Problem Allergic rhinitis, unspecified seasonality, unspecified trigger J30.9 confirmed 53156113 Problem Marijuana abuse F12.10 confirmed 42123590 Problem Intractable migraine with status migrainosus, unspecified migraine type G43.911 confirmed 432305818 Problem Tobacco use affecting in third trimester, antepartum O99.333 confirmed 383138605 Problem Seasonal allergies J30.2 confirmed 891240660 Problem Anxiety disorder, unspecified F41.9 confirmed 623461704 Problem Intractable epilepsy without status epilepticus, unspecified epilepsy type G40.919 confirmed 654352101 Problem Mild intermittent asthma with exacerbation J45.21 confirmed 065561107 Problem Abnormal menses N92.6 confirmed 405081941 Problem Tobacco use disorder F17.200 confirmed 142810523 Problem Tonsillar exudate J35.8 confirmed 904557316 ALLERGIES Allergen (clinical drug ingredient) Drug/Non Drug Allergy documented on EMR Reaction Allergy Type Onset Date Status Aura Unknown Drug Allergy Active amoxicillin Amoxicillin([facility] Code:[address]-1 1) hives Drug Allergy Active valproate Depakote([facility] Code:[address]-7 3) Unknown Drug Allergy Active aspirin Aspirin([facility] Code:[address]-5 3) Unknown Drug Allergy Active Influenza Vac Split Quad rash Drug Allergy Active ZyrTEC([facility] Code:[address]-6 4) Unknown Drug Allergy Active carbamazepine Tegretol([facility] Code:[address]-9 3) Unknown Drug Allergy Active phenobarbital Phenobarbital([facility] Code:[address]-4 1) Unknown Drug Allergy Active codeine / [...] 30 days Sep, Active REASON FOR VISIT ob 4 wks betina almeida MEDICAL (GENERAL) HISTORY Type Description Date Medical [...] days Sep, Next Appt Details Provider Name:RADHA CHANARINDER, 2 09:00:00 AM, [address], [place], [address], Provider Name:ABDIEL HOPSON , 2022-11-07 02:00:00 PM, [address] [place], [address], Provider Name:RADHA YIN, 2 09:00:00 AM, [address], [place], [address], Insurance Providers Payer Name Payer Address Payer Phone Insured Name Patient Relationship to Insured Coverage Start Date Coverage End Date Subscriber Number Group Number FARZANA [facility] [address] [facility] [address] Ana Ritter Self - patient is the insured [id number]
--- OUTSIDE RECORDS SUMMARY | 2022-12-06 06:49 | XMS REPORT ---
Author Author [facility] ter of [facility] ter of [facility] Address Unknown Phone Unavailable Care Team Providers Care Performance Test Consultant Name Role Phone RADHA YIN Unavailable PROBLEMS Type Condition ICD9-CM Code EDS99-QV Code Onset Dates Condition Status W/U Status Risk SNOMED Code Notes Problem Mild intermittent asthma without complication J45.20 confirmed 608468924 Problem Migraine without aura and without status migrainosus, not intractable G43.009 confirmed 827872921 Problem Allergic rhinitis, unspecified seasonality, unspecified trigger J30.9 confirmed 67101030 Problem Marijuana abuse F12.10 confirmed 36717894 Problem Intractable migraine with status migrainosus, unspecified migraine type G43.911 confirmed 647467809 Problem Tobacco use affecting in third trimester, antepartum O99.333 confirmed 739773890 Problem Seasonal allergies J30.2 confirmed 363178822 Problem Anxiety disorder, unspecified F41.9 confirmed 244122658 Problem Intractable epilepsy without status epilepticus, unspecified epilepsy type G40.919 confirmed 006954015 Problem Mild intermittent asthma with exacerbation J45.21 confirmed 435573605 Problem Abnormal menses N92.6 confirmed 156210572 Problem Tobacco use disorder F17.200 confirmed 638691267 Problem Tonsillar exudate J35.8 confirmed 455426727 ALLERGIES Allergen (clinical drug ingredient) Drug/Non Drug Allergy documented on EMR Reaction Allergy Type Onset Date Status Aura Unknown Drug Allergy Active amoxicillin Amoxicillin([facility] Code:[address]-3 1) hives Drug Allergy Active valproate Depakote([facility] Code:[address]-2 3) Unknown Drug Allergy Active aspirin Aspirin([facility] Code:[address]-2 3) Unknown Drug Allergy Active Influenza Vac Split Quad rash Drug Allergy Active ZyrTEC([facility] Code:[address]-7 4) Unknown Drug Allergy Active carbamazepine Tegretol([facility] Code:[address]-3 3) Unknown Drug Allergy Active phenobarbital Phenobarbital([facility] Code:[address]-2 1) Unknown Drug Allergy Active codeine / guaifenesin Codeine-Guaifenes in shortness of breath Drug Allergy Active Keflex hives Drug Allergy Active IMMUNIZATIONS Vaccine Route Administration Date Status hib [...] 13 Administered PRIVATE TDAP (BOOSTRIX) IM Intramuscular Feb 04, 2020 Administered prevnar pcv 7 (history) Unknown Dec 15, 2000 Admi nistered prevnar pcv 7 (history) Unknown September 18, 2000 Adm inistered dtap (history) Unknown Mar 16, 2001 Administered dtap (history) Unknown June 13, 2000 Administere d dtap (history) Unknown Apr 18, 2000 Administered dtap (history) Unknown Feb 14, 2000 Administered mmr-II (history) Unknown July 01, 2005 Administere d mmr-II (history) Unknown Dec 15, 2000 Administere d varicella (history) Unknown Dec 15, 2000 Administ ered PRIVATE TDAP (BOOSTRIX) IM Intramuscular Oct 06, 2022 Administered prevnar pcv 7 (history) Unknown June 13, 2000 Ad ministered poliovirus unspecified (history) Unknown Feb 14, 2001 Administered poliovirus unspecified (history) Unknown July 01, 2005 Administered varivax (history) Unknown September 23, 2011 Administe red tdap (history) Unknown May 26, 2011 Administere d prevnar pcv 7 (history) Unknown Apr 18, 2000 Admi nistered dtap (history) Unknown July 01, 2005 Administered boostrix tdap (history) Unknown May 12, 2018 Ad ministered poliovirus unspecified (history) Unknown Feb 14, 2000 Administered PRIVATE FLULAVAL QUAD 0.5ML (6 MO AND UP) 2019 Unknown Nov 16, 2018 Refused poliovirus unspecified (history) Unknown Apr 18, 2000 Administered tdap (history) Unknown August 23, 2019 Administered hepatitis a (history) Unknown August 14, [...] 30 days Sep, Active REASON FOR VISIT Case Management MEDICAL (GENERAL) HISTORY Type Description Date Medical [...] Name:RADHA YIN, 2 09:00:00 AM, [address] [facility], [place], [address], Provider Name:ABDIEL HOPSON , 2022-11-07 02:00:00 PM, [address] [facility], [place], [address], Provider Name:RADHA CHANARINDER, 2 09:00:00 AM, [address] [facility], [place], [address], Insurance Providers Payer Name Payer Address Payer Phone Insured Name Patient Relationship to Insured Coverage Start Date Coverage End Date Subscriber Number Group Number [employer]NA [facility] [address] [facility] [address] Ana Ritter Self - patient is the insured [id number]
--- OUTSIDE RECORDS SUMMARY | 2022-12-06 06:49 | XMS REPORT ---
Author Author [facility] ter of [facility] ter of [facility] Address Unknown Phone Unavailable Care Team Providers Care Phlebotomy Supervisor Name Role Phone MORENA MORALES Unavailable PROBLEMS Type Condition ICD9-CM Code DSU19-FS Code Onset Dates Condition Status W/U Status Risk SNOMED Code Notes Problem Mild intermittent asthma without complication J45.20 confirmed 430426439 Problem Migraine without aura and without status migrainosus, not intractable G43.009 confirmed 883608271 Problem Allergic rhinitis, unspecified seasonality, unspecified trigger J30.9 confirmed 32741236 Problem Marijuana abuse F12.10 confirmed 69811429 Problem Intractable migraine with status migrainosus, unspecified migraine type G43.911 confirmed 344491636 Problem Tobacco use affecting in third trimester, antepartum O99.333 confirmed 163742006 Problem Seasonal allergies J30.2 confirmed 909972236 Problem Anxiety disorder, unspecified F41.9 confirmed 150684005 Problem Intractable epilepsy without status epilepticus, unspecified epilepsy type G40.919 confirmed 191279922 Problem Mild intermittent asthma with exacerbation J45.21 confirmed 804225691 Problem Abnormal menses N92.6 confirmed 486589929 Problem Tobacco use disorder F17.200 confirmed 600935559 Problem Tonsillar exudate J35.8 confirmed 279531018 ALLERGIES Allergen (clinical drug ingredient) Drug/Non Drug Allergy documented on EMR Reaction Allergy Type Onset Date Status Aura Unknown Drug Allergy Active amoxicillin Amoxicillin([facility] Code:[address]-6 1) hives Drug Allergy Active Penicillin Unknown Drug Allergy Active aspirin Aspirin([facility] Code:[address]-4 6) Unknown Drug Allergy Active Influenza Vac Split Quad rash Drug Allergy Active ZyrTEC([facility] Code:[address]-5 4) Unknown Drug Allergy Active carbamazepine Tegretol([facility] Code:[address]-0 3) Unknown Drug Allergy Active phenobarbital Phenobarbital([facility] Code:[address]-9 6) Unknown Drug Allergy Active codeine / guaifenesin Codeine-Guaifenes in shortness of breath Drug Allergy Active Keflex hives Drug Allergy Active valproate Depakote([facility] Code:[address]-9 3) Unknown Drug Allergy Active ENCOUNTERS from 1999 to 2022-11-23 Encounter Location Date Provider Diagnosis [facility] [address] [place] [address] Nov, MORENA MORALES IMMUNIZATIONS Vaccine Route Administration [...] Once a day Active REASON FOR VISIT OB Flowsheet History MEDICAL (GENERAL) HISTORY Type Description Date Medical [...] Next Appt Details Provider Name:RADHA YIN, 2 -11-29 02:00:00 PM, [address], [place], [address], Provider Name:RADHATeri YIN, 2 02:20:00 PM, [address], [place], [address], Provider Name:RADHA YIN, 2 02:00:00 PM, [address], [place], [address], Insurance Providers Payer Name Payer Address Payer Phone Insured Name Patient Relationship to Insured Coverage Start Date Coverage End Date Subscriber Number Group Number [employer]NA [facility] [address] [facility] [address] Ana Ritter Self - patient is the insured [id number]
--- OUTSIDE RECORDS SUMMARY | 2022-12-06 06:49 | XMS REPORT ---
Author Author [facility] ter of [facility] ter of [facility] Address Unknown Phone Unavailable Care Team Providers Care Multimedia Developer Name Role Phone RADHA YIN Unavailable PROBLEMS Type Condition ICD9-CM Code BOF28-IE Code Onset Dates Condition Status W/U Status Risk SNOMED Code Notes Problem Mild intermittent asthma without complication J45.20 confirmed 031988356 Problem Migraine without aura and without status migrainosus, not intractable G43.009 confirmed 987005031 Problem Allergic rhinitis, unspecified seasonality, unspecified trigger J30.9 confirmed 31288770 Problem Marijuana abuse F12.10 confirmed 55715448 Problem Intractable migraine with status migrainosus, unspecified migraine type G43.911 confirmed 518355101 Problem Tobacco use affecting in third trimester, antepartum O99.333 confirmed 235406653 Problem Seasonal allergies J30.2 confirmed 180681270 Problem Anxiety disorder, unspecified F41.9 confirmed 304431088 Problem Intractable epilepsy without status epilepticus, unspecified epilepsy type G40.919 confirmed 340683645 Problem Mild intermittent asthma with exacerbation J45.21 confirmed 098068464 Problem Abnormal menses N92.6 confirmed 806240699 Problem Tobacco use disorder F17.200 confirmed 875957329 Problem Tonsillar exudate J35.8 confirmed 740440929 ALLERGIES Allergen (clinical drug ingredient) Drug/Non Drug Allergy documented on EMR Reaction Allergy Type Onset Date Status Aura Unknown Drug Allergy Active amoxicillin Amoxicillin([facility] Code:[address]-5 1) hives Drug Allergy Active valproate Depakote([facility] Code:[address]-1 3) Unknown Drug Allergy Active aspirin Aspirin([facility] Code:[address]-1 3) Unknown Drug Allergy Active Influenza Vac Split Quad rash Drug Allergy Active ZyrTEC([facility] Code:[address]-5 4) Unknown Drug Allergy Active carbamazepine Tegretol([facility] Code:[address]-6 3) Unknown Drug Allergy Active phenobarbital Phenobarbital([facility] Code:[address]-8 1) Unknown Drug Allergy Active codeine / [...] Name:RADHA YIN, 2 09:00:00 AM, [address], [place], [address], Provider Name:ABDEIL HOPSON , 2022-11-07 02:00:00 PM, [address] [facility], [place], [address], Provider Name:RADHA ANNAMARIA, 2 09:00:00 AM, [address] [facility], [place], [address], Insurance Providers Payer Name Payer Address Payer Phone Insured Name Patient Relationship to Insured Coverage Start Date Coverage End Date Subscriber Number Group Number [employer] [facility] [address] [facility] [address] Ana Ritter Self - patient is the insured [id number]
--- OUTSIDE RECORDS SUMMARY | 2022-12-06 06:49 | XMS REPORT ---
Author Author [facility] ter of [facility] ter of [facility] Address Unknown Phone Unavailable Care Team Providers Care Bonding Agent Name Role Phone RADHA YIN Unavailable PROBLEMS Type Condition ICD9-CM Code OCG48-GR Code Onset Dates Condition Status W/U Status Risk SNOMED Code Notes Problem Mild intermittent asthma without complication J45.20 confirmed 314972055 Problem Migraine without aura and without status migrainosus, not intractable G43.009 confirmed 419529691 Problem Allergic rhinitis, unspecified seasonality, unspecified trigger J30.9 confirmed 21786287 Problem Marijuana abuse F12.10 confirmed 40753350 Problem Intractable migraine with status migrainosus, unspecified migraine type G43.911 confirmed 037848873 Problem Tobacco use affecting in third trimester, antepartum O99.333 confirmed 949568137 Problem Seasonal allergies J30.2 confirmed 160804800 Problem Anxiety disorder, unspecified F41.9 confirmed 133432278 Problem Intractable epilepsy without status epilepticus, unspecified epilepsy type G40.919 confirmed 523866403 Problem Mild intermittent asthma with exacerbation J45.21 confirmed 172382123 Problem Abnormal menses N92.6 confirmed 318196156 Problem Tobacco use disorder F17.200 confirmed 974660675 Problem Tonsillar exudate J35.8 confirmed 924532930 ALLERGIES Allergen (clinical drug ingredient) Drug/Non Drug Allergy documented on EMR Reaction Allergy Type Onset Date Status Aura Unknown Drug Allergy Active amoxicillin Amoxicillin([facility] Code:[address]-0 1) hives Drug Allergy Active valproate Depakote([facility] Code:[address]-9 3) Unknown Drug Allergy Active aspirin Aspirin([facility] Code:[address]-4 3) Unknown Drug Allergy Active Influenza Vac Split Quad rash Drug Allergy Active ZyrTEC([facility] Code:[address]-0 4) Unknown Drug Allergy Active carbamazepine Tegretol([facility] Code:[address]-1 3) Unknown Drug Allergy Active phenobarbital Phenobarbital([facility] Code:[address]-6 1) Unknown Drug Allergy Active codeine / [...] Name:RADHA YIN, 2 09:00:00 AM, [address], [place], [address], Provider Name:ABDIEL HOPSON , 2022-11-07 02:00:00 PM, [address] [facility], [place], [address], Provider Name:RADHA ANNAMARIA, 2 09:00:00 AM, [address] [facility], [place], [address], Insurance Providers Payer Name Payer Address Payer Phone Insured Name Patient Relationship to Insured Coverage Start Date Coverage End Date Subscriber Number Group Number [employer]ZANA [facility] [address] [facility] [address] Ana Ritter Self - patient is the insured [id number]
--- OUTSIDE RECORDS SUMMARY | 2022-12-06 06:49 | XMS REPORT ---
Author Author [facility] ter of [facility] ter of [facility] Address Unknown Phone Unavailable Care Team Providers Care Powderer Name Role Phone AMANDA VINCENT Unavailable PROBLEMS Type Condition ICD9-CM Code BLU86-IL Code Onset Dates Condition Status W/U Status Risk SNOMED Code Notes Problem Mild intermittent asthma without complication J45.20 confirmed 678442944 Problem Seasonal allergies J30.2 confirmed 416433497 Problem Allergic rhinitis, unspecified seasonality, unspecified trigger J30.9 confirmed 08913819 Problem care in third trimester Z34.93 confirmed 230773512 Problem Tobacco use disorder F17.200 confirmed 872743231 Problem Intractable epilepsy without status epilepticus, unspecified epilepsy type G40.919 confirmed 562764893 Problem Tonsillar exudate J35.8 confirmed 131464304 Problem Migraine without aura and without status migrainosus, not intractable G43.009 confirmed 713828917 Problem Marijuana abuse F12.10 confirmed 41552235 Problem Intractable migraine with status migrainosus, unspecified migraine type G43.911 confirmed 763713253 Problem Mild intermittent asthma with exacerbation J45.21 confirmed 519229514 Problem Abnormal menses N92.6 confirmed 925813774 ALLERGIES Allergen (clinical drug ingredient) Drug/Non Drug Allergy documented on EMR Reaction Allergy Type Onset Date Status Aura Unknown Drug Allergy Active amoxicillin Amoxicillin([facility] Code:[address]-5 1) hives Drug Allergy Active valproate Depakote([facility] Code:[address]-4 3) Unknown Drug Allergy Active aspirin Aspirin([facility] Code:[address]-2 3) Unknown Drug Allergy Active Influenza Vac Split Quad rash Drug Allergy Active ZyrTEC([facility] Code:[address]-7 4) Unknown Drug Allergy Active carbamazepine Tegretol([facility] Code:[address]-7 3) Unknown Drug Allergy Active phenobarbital Phenobarbital([facility] Code:[address]-9 1) Unknown Drug Allergy Active codeine / guaifenesin Codeine-Guaifenes in shortness of breath Drug Allergy Active Keflex hives Drug Allergy Active ENCOUNTERS from 1999 to 2022-10-05 Encounter Location Date Provider Diagnosis [facility] [address] [facility] [id number] [place] [address] Sep, AMANDA VINCENT IMMUNIZATIONS Vaccine Route Administration Date Status hib (history) Unknown June 13, 2000 Administered hib (history) Unknown Apr 18, 2000 Administered hib (history) Unknown Feb 14, 2000 Administered prevnar pcv 7 (history) Unknown Dec 15, 2000 Admi nistered hepatitis b pediatric (history) Unknown June 13, 2000 Administered hepatitis b pediatric (history) Unknown Jan 16 Administered hepatitis b pediatric (history) Unknown Dec 13 Administered hib (history) Unknown Dec 15, 2000 Administered PRIVATE TDAP (BOOSTRIX) IM Intramuscular Feb 04, 2020 Administered prevnar pcv 7 (history) Unknown September 18, 2000 Adm inistered prevnar pcv 7 (history) Unknown June 13, 2000 Ad ministered hepatitis a (history) Unknown August 14, 2009 Admin istered mmr-II (history) Unknown July 01, 2005 Administere d dtap (history) Unknown Mar 16, 2001 Administered dtap (history) Unknown July 01, 2005 Administered poliovirus unspecified (history) Unknown July 01, 2005 Administered varivax (history) Unknown September 23, 2011 Administe red tdap (history) Unknown May 26, 2011 Administere d tdap (history) Unknown August 23, 2019 Administered prevnar pcv 7 (history) Unknown Apr 18, 2000 Admi nistered poliovirus unspecified (history) Unknown Apr 18, 2000 Administered poliovirus unspecified (history) Unknown Feb 14, 2000 Administered dtap (history) Unknown June 13, 2000 Administere d dtap (history) Unknown Apr 18, 2000 Administered PRIVATE FLULAVAL QUAD 0.5ML (6 MO AND UP) 2019 Unknown Nov 16, 2018 Refused hepatitis a (history) Unknown June 14, 2002 Admi nistered boostrix tdap (history) Unknown May 12, 2018 Ad ministered hepatitis a (history) Unknown Dec 21, 2001 Admini stered poliovirus unspecified (history) Unknown Feb 14, 2001 Administered dtap (history) Unknown Feb 14, 2000 Administered mmr-II (history) Unknown Dec 15, 2000 Administere d varicella (history) Unknown Dec 15, 2000 Administ ered SOCIAL HISTORY Sex Assigned At : Social [...] 2.5 MG/0.5ML as directed Inhalation Activ e Ondansetron 4 MG 1 tablet on the tong ue and allow to dissolve Orally every 6 hours as needed for 5 days Dec, Active REASON FOR VISIT Case Management MEDICAL [...] TREATMENT Next Appt Details Provider Name:RADHA YIN, Valerie 023-08-10 09:00:00 AM, [address], [place], [address], Provider Name:RADHA YIN, 2 09:00:00 AM, [address], [place], [address], Provider Name:RADHA YIN, 2 09:00:00 AM, [address], [place], [address], Insurance Providers Payer Name Payer Address Payer Phone Insured Name Patient Relationship to Insured Coverage Start Date Coverage End Date Subscriber Number Group Number [employer] [place] [id number] [address] [facility] [id number] [phone] Ana Ritter Self - patient is the insured [id number]
--- OUTSIDE RECORDS SUMMARY | 2022-12-06 06:49 | XMS REPORT ---
Author Author [facility] ter of [facility] ter of [facility] Address Unknown Phone Unavailable Care Team Providers Care Laborer Shipyard Name Role Phone MORENA MORALES Unavailable PROBLEMS Type Condition ICD9-CM Code ADD52-GQ Code Onset Dates Condition Status W/U Status Risk SNOMED Code Notes Problem Mild intermittent asthma without complication J45.20 confirmed 479805224 Problem Migraine without aura and without status migrainosus, not intractable G43.009 confirmed 556218265 Problem Allergic rhinitis, unspecified seasonality, unspecified trigger J30.9 confirmed 29923011 Problem Marijuana abuse F12.10 confirmed 87053882 Problem Intractable migraine with status migrainosus, unspecified migraine type G43.911 confirmed 801340423 Problem Tobacco use affecting in third trimester, antepartum O99.333 confirmed 484942749 Problem Seasonal allergies J30.2 confirmed 393872844 Problem Anxiety disorder, unspecified F41.9 confirmed 110188760 Problem Intractable epilepsy without status epilepticus, unspecified epilepsy type G40.919 confirmed 385024631 Problem Mild intermittent asthma with exacerbation J45.21 confirmed 917832378 Problem Abnormal menses N92.6 confirmed 225658403 Problem Tobacco use disorder F17.200 confirmed 864134995 Problem Tonsillar exudate J35.8 confirmed 810250629 ALLERGIES Allergen (clinical drug ingredient) Drug/Non Drug Allergy documented on EMR Reaction Allergy Type Onset Date Status Aura Unknown Drug Allergy Active amoxicillin Amoxicillin(NDC Code:[address]-8 1) hives Drug Allergy Active Penicillin Unknown Drug Allergy Active aspirin Aspirin(ND Code:[address]-2 6) Unknown Drug Allergy Active Influenza Vac Split Quad rash Drug Allergy Active ZyrTEC([facility] Code:[address]-6 4) Unknown Drug Allergy Active carbamazepine Tegretol([facility] Code:[address]-4 3) Unknown Drug Allergy Active phenobarbital Phenobarbital([facility] Code:[address]-6 6) Unknown Drug Allergy Active codeine / guaifenesin Codeine-Guaifenes in shortness of breath Drug Allergy Active Keflex hives Drug Allergy Active valproate Depakote([facility] Code:[address]-2 3) Unknown Drug Allergy Active ENCOUNTERS from 1999 to 2022-11-23 Encounter Location Date Provider Diagnosis [facility] [address] [place] [address] Nov, MORENA BELTRANOCH Missed period N92.6 IMMUNIZATIONS Vaccine Route Administration Date Status dtap [...] Once a day Active REASON FOR VISIT U/S OB < 14 weeks- Jayda Velasquez RT(R)(M)RDMS,RVT MEDICAL (GENERAL) HISTORY Type Description Date Medical [...] Notes Treatment Notes Treatment Clinical Notes Nov, Missed period (ICD-10 - N92.6) PLAN OF TREATMENT Next Appt Details Provider Name:RADHA CHANARINDER, 2 02:00:00 PM, [address] , [place], [address], Provider Name:RADHA YIN, 2 02:20:00 PM, [address] [place], [address], Provider Name:RADHA ANNAMARIA, 2 02:00:00 PM, [address] , [place], [address], Insurance Providers Payer Name Payer Address Payer Phone Insured Name Patient Relationship to Insured Coverage Start Date Coverage End Date Subscriber Number Group Number FARZANA [facility] [address] [facility] [id number] [phone] Ana Ritter Self - patient is the insured [id number]
--- OUTSIDE RECORDS SUMMARY | 2022-12-06 06:49 | XMS REPORT ---
Author Author [facility] ter of [facility] ter of [facility] Address Unknown Phone Unavailable Care Team Providers Care Server Cashier Name Role Phone RADHA YIN Unavailable PROBLEMS Type Condition ICD9-CM Code QNW26-IF Code Onset Dates Condition Status W/U Status Risk SNOMED Code Notes Problem Mild intermittent asthma without complication J45.20 confirmed 036076059 Problem Migraine without aura and without status migrainosus, not intractable G43.009 confirmed 447429032 Problem Allergic rhinitis, unspecified seasonality, unspecified trigger J30.9 confirmed 39034091 Problem Marijuana abuse F12.10 confirmed 22077065 Problem Intractable migraine with status migrainosus, unspecified migraine type G43.911 confirmed 401591958 Problem Tobacco use affecting in third trimester, antepartum O99.333 confirmed 011947821 Problem Seasonal allergies J30.2 confirmed 969556937 Problem Anxiety disorder, unspecified F41.9 confirmed 550961266 Problem Intractable epilepsy without status epilepticus, unspecified epilepsy type G40.919 confirmed 360742950 Problem Mild intermittent asthma with exacerbation J45.21 confirmed 844308503 Problem Abnormal menses N92.6 confirmed 642076503 Problem Tobacco use disorder F17.200 confirmed 625426001 Problem Tonsillar exudate J35.8 confirmed 729919971 ALLERGIES Allergen (clinical drug ingredient) Drug/Non Drug Allergy documented on EMR Reaction Allergy Type Onset Date Status Aura Unknown Drug Allergy Active amoxicillin Amoxicillin([facility] Code:[address]-9 1) hives Drug Allergy Active valproate Depakote([facility] Code:[address]-9 3) Unknown Drug Allergy Active aspirin Aspirin([facility]C Code:[address]-3 3) Unknown Drug Allergy Active Influenza Vac Split Quad rash Drug Allergy Active ZyrTEC([facility] Code:[address]-2 4) Unknown Drug Allergy Active carbamazepine Tegretol([facility] Code:[address]-5 3) Unknown Drug Allergy Active phenobarbital Phenobarbital([facility] Code:[address]-9 1) Unknown Drug Allergy Active codeine / [...] Assessment Notes Treatment Notes Treatment Clinical Notes May, Other I recommend you download the [employer] colleen or log on to the [employer] Patient Portal. Accessing the colleen or the portal will give you more access to your personal health information (such as lab results, appointment information, etc) and will allow you to actively participate in your healthcare. Patient doing well, may return to normal activity I recommend you download the [employer] colleen or log on to the [employer] Patient Portal. Accessing the colleen or the [...] 2 09:00:00 AM, [address] [place], [address], Provider Name:ABDIEL HOPSON , 2022-11-07 02:00:00 PM, [address] [place], [address], Provider Name:RADHA YIN, 2 09:00:00 AM, [address] [place], [address], Insurance Providers Payer Name Payer Address Payer Phone Insured Name Patient Relationship to Insured Coverage Start Date Coverage End Date Subscriber Number Group Number [employer]ZANA [facility] [address] [facility] [address] Ana Ritter Self - patient is the insured [id number]
--- OUTSIDE RECORDS SUMMARY | 2022-12-06 06:49 | XMS REPORT ---
Author Author [facility] ter of [facility] ter of [facility] Address Unknown Phone Unavailable Care Team Providers Care Bolt Sorter Name Role Phone RADHA YIN Unavailable PROBLEMS Type Condition ICD9-CM Code ZGG48-AJ Code Onset Dates Condition Status W/U Status Risk SNOMED Code Notes Problem Mild intermittent asthma without complication J45.20 confirmed 749816067 Problem Migraine without aura and without status migrainosus, not intractable G43.009 confirmed 315871642 Problem Allergic rhinitis, unspecified seasonality, unspecified trigger J30.9 confirmed 87068034 Problem Marijuana abuse F12.10 confirmed 63602732 Problem Intractable migraine with status migrainosus, unspecified migraine type G43.911 confirmed 289546312 Problem Tobacco use affecting in third trimester, antepartum O99.333 confirmed 116030486 Problem Seasonal allergies J30.2 confirmed 153115749 Problem Anxiety disorder, unspecified F41.9 confirmed 751059390 Problem Intractable epilepsy without status epilepticus, unspecified epilepsy type G40.919 confirmed 248328018 Problem Mild intermittent asthma with exacerbation J45.21 confirmed 244242516 Problem Abnormal menses N92.6 confirmed 489108766 Problem Tobacco use disorder F17.200 confirmed 384574851 Problem Tonsillar exudate J35.8 confirmed 621275988 ALLERGIES Allergen (clinical drug ingredient) Drug/Non Drug Allergy documented on EMR Reaction Allergy Type Onset Date Status Aura Unknown Drug Allergy Active amoxicillin Amoxicillin([facility] Code:[address]-0 1) hives Drug Allergy Active valproate Depakote([facility] Code:[address]-2 3) Unknown Drug Allergy Active aspirin Aspirin([facility] Code:[address]-9 3) Unknown Drug Allergy Active Influenza Vac Split Quad rash Drug Allergy Active ZyrTEC([facility] Code:[address]-8 4) Unknown Drug Allergy Active carbamazepine Tegretol([facility] Code:[address]-3 3) Unknown Drug Allergy Active phenobarbital Phenobarbital([facility] Code:[address]-1 1) Unknown Drug Allergy Active codeine / [...] Name:RADHA YIN, 2 09:00:00 AM, [address], [place], [address], Provider Name:ABDIEL HOPSON , 2022-11-07 02:00:00 PM, [address] [facility], [place], [address], Provider Name:RADHA YIN, 2 09:00:00 AM, [address] [facility], [place], [address], Insurance Providers Payer Name Payer Address Payer Phone Insured Name Patient Relationship to Insured Coverage Start Date Coverage End Date Subscriber Number Group Number FARZANA [facility] [address] [facility] [address] Ana Ritter Self - patient is the insured [id number]
--- OUTSIDE RECORDS SUMMARY | 2022-12-06 06:49 | XMS REPORT ---
Author Author [facility] ter of [facility] ter of [facility] Address Unknown Phone Unavailable Care Team Providers Care Crossword Puzzle Maker Name Role Phone YONG MONZON Unavailable PROBLEMS Type Condition ICD9-CM Code IFS68-IH Code Onset Dates Condition Status W/U Status Risk SNOMED Code Notes Problem Mild intermittent asthma without complication J45.20 confirmed 881824511 Problem Seasonal allergies J30.2 confirmed 174300681 Problem Allergic rhinitis, unspecified seasonality, unspecified trigger J30.9 confirmed 61444195 Problem Tobacco use disorder F17.200 confirmed 068692786 Problem Intractable epilepsy without status epilepticus, unspecified epilepsy type G40.919 confirmed 154795581 Problem Tonsillar exudate J35.8 confirmed 507311562 Problem Migraine without aura and without status migrainosus, not intractable G43.009 confirmed 838545748 Problem Marijuana abuse F12.10 confirmed 50755414 Problem Intractable migraine with status migrainosus, unspecified migraine type G43.911 confirmed 255093113 Problem Mild intermittent asthma with exacerbation J45.21 confirmed 830654922 Problem Abnormal menses N92.6 confirmed 449664710 ALLERGIES Allergen (clinical drug ingredient) Drug/Non Drug Allergy documented on EMR Reaction Allergy Type Onset Date Status Aura Unknown Drug Allergy Active amoxicillin Amoxicillin([facility] Code:[address]-0 1) hives Drug Allergy Active valproate Depakote([facility] Code:[address]-1 3) Unknown Drug Allergy Active aspirin Aspirin([facility] Code:[address]-5 3) Unknown Drug Allergy Active Influenza Vac Split Quad rash Drug Allergy Active ZyrTEC([facility] Code:[address]-2 4) Unknown Drug Allergy Active carbamazepine Tegretol([facility] Code:[address]-7 3) Unknown Drug Allergy Active phenobarbital Phenobarbital([facility] Code:[address]-1 1) Unknown Drug Allergy Active codeine / guaifenesin Codeine-Guaifenes in shortness of breath Drug Allergy Active Keflex hives Drug Allergy Active ENCOUNTERS from 1999 to 2022-08-04 Encounter Location Date Provider Diagnosis [facility] [address] [facility] [id number] [place] [address] Jul, YONG MONZON Encounter for screening laboratory testing for COVID-19 virus Z11.59 IMMUNIZATIONS Vaccine Route Administration Date Status hepatitis b pediatric (history) Unknown Dec 13 Administered hib (history) Unknown Dec 15, 2000 Administered hib (history) Unknown June 13, 2000 Administered hib (history) Unknown Apr 18, 2000 Administered hepatitis a (history) Unknown June 14, 2002 Admi nistered hepatitis a (history) Unknown Dec 21, 2001 Admini stered hepatitis b pediatric (history) Unknown June 13, 2000 Administered hepatitis b pediatric (history) Unknown Jan 16 Administered PRIVATE TDAP (BOOSTRIX) IM Intramuscular Feb 04, 2020 Administered hib (history) Unknown Feb 14, 2000 Administered prevnar pcv 7 (history) Unknown Dec 15, 2000 Admi nistered poliovirus unspecified (history) Unknown Feb 14, 2000 [...] Ad ministered prevnar pcv 7 (history) Unknown September 18, 2000 Adm inistered dtap (history) Unknown Apr 18, 2000 Administered dtap (history) Unknown Feb 14, 2000 Administered PRIVATE FLULAVAL QUAD 0.5ML (6 MO AND UP) 2019 Unknown Nov 16, 2018 Refused mmr-II (history) Unknown July 01, 2005 Administere d prevnar pcv 7 (history) Unknown June 13, 2000 Ad ministered dtap (history) Unknown July 01, 2005 Administered prevnar pcv 7 (history) Unknown Apr 18, 2000 Admi nistered dtap (history) Unknown Mar 16, 2001 Administered dtap (history) Unknown June 13, 2000 Administere d mmr-II (history) Unknown Dec 15, 2000 Administere d varicella (history) Unknown Dec 15, 2000 Administ robert hepatitis a (history) Unknown August 14, 2009 Admin istered SOCIAL HISTORY Sex Assigned At : Social [...] 1 tablet Orally Once a day Active Ciprodex 0.3-0.1 % 4 drops into affecte d ear Otic Twice a day for 7 day(s) June, Not-Taking Albuterol Sulfate 2.5 MG/0.5ML as directed Inhalation Activ e REASON FOR VISIT Symptomatic (white [place]) Pt is employed [employer] MEDICAL (GENERAL) HISTORY Type Description Date Medical [...] Assessment Notes Treatment Notes Treatment Clinical Notes Jul, Encounter for screening laboratory testing for COVID-19 virus (ICD-10 - Z11.59) Jul, Other Patient was instructed to self-isolate at home until further instruction from clinic staff Patient was instructed to self-isolate at home until further instruction from clinic staff PLAN OF TREATMENT Next Appt Details Provider Name:RADHA YIN, 2 023-06-27 01:20:00 PM, [address], [place], [address], Insurance Providers Payer Name Payer Address Payer Phone Insured Name Patient Relationship to Insured Coverage Start Date Coverage End Date Subscriber Number Group Number FARZANA [facility] [address] [facility] [address] [phone] Ana Ritter Self - patient is the insured [id number]
--- OUTSIDE RECORDS SUMMARY | 2022-12-06 06:49 | XMS REPORT ---
Author Author [facility] ter of [facility] ter of [facility] Address Unknown Phone Unavailable Care Team Providers Care Operational Trainer Name Role Phone RADHA YIN Unavailable PROBLEMS Type Condition ICD9-CM Code QWX15-KV Code Onset Dates Condition Status W/U Status Risk SNOMED Code Notes Problem Mild intermittent asthma without complication J45.20 confirmed 869548208 Problem Migraine without aura and without status migrainosus, not intractable G43.009 confirmed 428126496 Problem Allergic rhinitis, unspecified seasonality, unspecified trigger J30.9 confirmed 06087650 Problem Marijuana abuse F12.10 confirmed 69787821 Problem Intractable migraine with status migrainosus, unspecified migraine type G43.911 confirmed 868527302 Problem Tobacco use affecting in third trimester, antepartum O99.333 confirmed 041322869 Problem Seasonal allergies J30.2 confirmed 880817661 Problem Anxiety disorder, unspecified F41.9 confirmed 153526477 Problem Intractable epilepsy without status epilepticus, unspecified epilepsy type G40.919 confirmed 337357418 Problem Mild intermittent asthma with exacerbation J45.21 confirmed 893099673 Problem Abnormal menses N92.6 confirmed 338707969 Problem Tobacco use disorder F17.200 confirmed 918913380 Problem Tonsillar exudate J35.8 confirmed 110289770 ALLERGIES Allergen (clinical drug ingredient) Drug/Non Drug Allergy documented on EMR Reaction Allergy Type Onset Date Status Aura Unknown Drug Allergy Active amoxicillin Amoxicillin([facility] Code:[address]-6 1) hives Drug Allergy Active valproate Depakote([facility] Code:[address]-8 3) Unknown Drug Allergy Active aspirin Aspirin([facility] Code:[address]-7 3) Unknown Drug Allergy Active Influenza Vac Split Quad rash Drug Allergy Active ZyrTEC([facility] Code:[address]-5 4) Unknown Drug Allergy Active carbamazepine Tegretol([facility] Code:[address]-7 3) Unknown Drug Allergy Active phenobarbital Phenobarbital([facility] Code:[address]-6 1) Unknown Drug Allergy Active codeine / [...] 30 days Sep, Active REASON FOR VISIT No Information MEDICAL (GENERAL) HISTORY Type Description Date Medical [...] Name:RADHA YIN, 2 09:00:00 AM, [address] [facility], [place], [address], Provider Name:ABDIEL HOPSON , 2022-11-07 02:00:00 PM, [address] [facility], [place], [address], Provider Name:RADHA CHANARINDER, 2 09:00:00 AM, [address] [facility], [place], [address], Insurance Providers Payer Name Payer Address Payer Phone Insured Name Patient Relationship to Insured Coverage Start Date Coverage End Date Subscriber Number Group Number FARZANA [facility] [address] [facility] [address] Ana Ritter Self - patient is the insured [id number]
--- OUTSIDE RECORDS SUMMARY | 2022-12-06 06:49 | XMS REPORT ---
Author Author [facility] ter of [facility] ter of [facility] Address Unknown Phone Unavailable Care Team Providers Care Dowel Pin Man Name Role Phone MORENA MORALES Unavailable PROBLEMS Type Condition ICD9-CM Code BVM37-WF Code Onset Dates Condition Status W/U Status Risk SNOMED Code Notes Problem Mild intermittent asthma without complication J45.20 confirmed 551142628 Problem Migraine without aura and without status migrainosus, not intractable G43.009 confirmed 948622019 Problem Allergic rhinitis, unspecified seasonality, unspecified trigger J30.9 confirmed 39918393 Problem Marijuana abuse F12.10 confirmed 15110686 Problem Intractable migraine with status migrainosus, unspecified migraine type G43.911 confirmed 988035859 Problem Tobacco use affecting in third trimester, antepartum O99.333 confirmed 751809547 Problem Seasonal allergies J30.2 confirmed 695091472 Problem Anxiety disorder, unspecified F41.9 confirmed 512578755 Problem Intractable epilepsy without status epilepticus, unspecified epilepsy type G40.919 confirmed 025461387 Problem Mild intermittent asthma with exacerbation J45.21 confirmed 599407357 Problem Abnormal menses N92.6 confirmed 646643468 Problem Tobacco use disorder F17.200 confirmed 475417392 Problem Tonsillar exudate J35.8 confirmed 312411620 ALLERGIES Allergen (clinical drug ingredient) Drug/Non Drug Allergy documented on EMR Reaction Allergy Type Onset Date Status Aura Unknown Drug Allergy Active amoxicillin Amoxicillin([facility] Code:[address]-4 1) hives Drug Allergy Active Penicillin Unknown Drug Allergy Active aspirin Aspirin([facility] Code:[address]-6 6) Unknown Drug Allergy Active Influenza Vac Split Quad rash Drug Allergy Active ZyrTEC([facility] Code:[address]-7 4) Unknown Drug Allergy Active carbamazepine Tegretol([facility] Code:[address]-2 3) Unknown Drug Allergy Active phenobarbital Phenobarbital([facility] Code:[address]-5 6) Unknown Drug Allergy Active codeine / guaifenesin Codeine-Guaifenes in shortness of breath Drug Allergy Active Keflex hives Drug Allergy Active valproate Depakote([facility] Code:[address]-0 3) Unknown Drug Allergy Active ENCOUNTERS from 1999 to 2022-11-25 Encounter Location Date Provider Diagnosis [facility] [address] [facility] [id number] [place] [address] 08 Nov, 2020 MORENA MORALES IMMUNIZATIONS Vaccine Route Administration Date Status hib [...] b pediatric (history) Unknown Dec 13 Administered tdap (history) Unknown August 23, 2019 Administered prevnar pcv 7 (history) Unknown Dec 15, 2000 Admi nistered prevnar pcv 7 (history) Unknown September 18, 2000 Adm inistered dtap (history) Unknown Mar 16, 2001 Administered dtap (history) Unknown July 01, 2005 Administered poliovirus unspecified (history) Unknown Feb 14, 2000 Administered poliovirus unspecified (history) Unknown Apr 18, 2000 Administered poliovirus unspecified (history) Unknown Feb 14, 2001 Administered poliovirus unspecified (history) Unknown July 01, 2005 Administered varivax (history) Unknown September 23, 2011 Administe red tdap (history) Unknown May 26, 2011 Administere d prevnar pcv 7 (history) Unknown June 13, 2000 Ad ministered PRIVATE FLULAVAL QUAD 0.5ML (6 MO AND UP) 2018 Unknown Nov 16, 2018 Refused mmr-II (history) Unknown July 01, 2005 Administere d mmr-II (history) Unknown Dec 15, 2000 Administere d varicella (history) Unknown Dec 15, 2000 Administ ered prevnar pcv 7 (history) Unknown Apr 18, 2000 Admi nistered dtap (history) Unknown June 13, 2000 Administere d boostrix tdap (history) Unknown May 12, 2018 Ad ministered dtap (history) Unknown Apr 18, 2000 Administered PRIVATE TDAP (BOOSTRIX) IM Intramuscular Feb 04, 2020 Administered dtap (history) Unknown Feb 14, 2000 Administered PRIVATE TDAP (BOOSTRIX) IM Intramuscular Oct 06, 2022 Administered hepatitis a (history) Unknown August 14, [...] Once a day Active REASON FOR VISIT Patient Concerns MEDICAL (GENERAL) HISTORY Type Description Date [...] -11-29 02:00:00 PM, [address], [place], [address], Provider Name:RADHATeri YIN, 2 02:20:00 PM, [address], [place], [address], Provider Name:RADHA YIN, 2 02:00:00 PM, [address], [place], [address], Insurance Providers Payer Name Payer Address Payer Phone Insured Name Patient Relationship to Insured Coverage Start Date Coverage End Date Subscriber Number Group Number [employer]ARZANA [facility] [address] [facility] [address] Ana Ritter Self - patient is the insured [id number]
--- OUTSIDE RECORDS SUMMARY | 2022-12-06 06:49 | XMS REPORT ---
Author Author [facility] ter of [facility] ter of [facility] Address Unknown Phone Unavailable Care Team Providers Care Slat Basket Top Maker Name Role Phone MORENA MORALES Unavailable PROBLEMS Type Condition ICD9-CM Code [id number] Code Onset Dates Condition Status W/U Status Risk SNOMED Code Notes Problem Mild intermittent asthma without complication J45.20 confirmed 267974427 Problem Migraine without aura and without status migrainosus, not intractable G43.009 confirmed 542340404 Problem Allergic rhinitis, unspecified seasonality, unspecified trigger J30.9 confirmed 55081203 Problem Marijuana abuse F12.10 confirmed 02664600 Problem Intractable migraine with status migrainosus, unspecified migraine type G43.911 confirmed 596755358 Problem Tobacco use affecting in third trimester, antepartum O99.333 confirmed 080303139 Problem Seasonal allergies J30.2 confirmed 004090250 Problem Anxiety disorder, unspecified F41.9 confirmed 657918799 Problem Intractable epilepsy without status epilepticus, unspecified epilepsy type G40.919 confirmed 937021580 Problem Mild intermittent asthma with exacerbation J45.21 confirmed 020673416 Problem Abnormal menses N92.6 confirmed 921732268 Problem Tobacco use disorder F17.200 confirmed 311963197 Problem Tonsillar exudate J35.8 confirmed 738712677 ALLERGIES Allergen (clinical drug ingredient) Drug/Non Drug Allergy documented on EMR Reaction Allergy Type Onset Date Status Aura Unknown Drug Allergy Active amoxicillin Amoxicillin(NDC Code:[address]-3 1) hives Drug Allergy Active Penicillin Unknown Drug Allergy Active aspirin Aspirin(ND Code:[address]-0 6) Unknown Drug Allergy Active Influenza Vac Split Quad rash Drug Allergy Active ZyrTEC([facility] Code:[address]-4 4) Unknown Drug Allergy Active carbamazepine Tegretol([facility] Code:[address]-6 3) Unknown Drug Allergy Active phenobarbital Phenobarbital([facility] Code:[address]-6 6) Unknown Drug Allergy Active codeine / guaifenesin Codeine-Guaifenes in shortness of breath Drug Allergy Active Keflex hives Drug Allergy Active valproate Depakote([facility] Code:[address]-7 3) Unknown Drug Allergy Active ENCOUNTERS from 1999 to 2022-11-26 Encounter Location Date Provider Diagnosis [facility] [address] [place] [address] 11 Nov, 2020 MORENA MORALES IMMUNIZATIONS Vaccine Route [...] Once a day Active REASON FOR VISIT Phone Call MEDICAL (GENERAL) HISTORY Type Description Date Medical [...] Next Appt Details Provider Name:RADHA YIN, 2 023-11-29 02:00:00 PM, [address], [place], [address], Provider Name:RADHA YIN, 2 023 02:20:00 PM, [address], [place], [address], Provider Name:RADHA YIN, 2 -12-13 02:00:00 PM, [address], [place], [address], Insurance Providers Payer Name Payer Address Payer Phone Insured Name Patient Relationship to Insured Coverage Start Date Coverage End Date Subscriber Number Group Number [employer] [facility] [address] [facility] [address] [phone] Ana Ritter Self - patient is the insured [id number]
--- OUTSIDE RECORDS SUMMARY | 2022-12-06 06:49 | XMS REPORT ---
Author Author [facility] ter of [facility] ter of [facility] Address Unknown Phone Unavailable Care Team Providers Care Lift Team Technician Name Role Phone PHANI Morales Unavailable PROBLEMS Type Condition ICD9-CM Code CLF11-JI Code Onset Dates Condition Status W/U Status Risk SNOMED Code Notes Problem Mild intermittent asthma without complication J45.20 confirmed 864960279 Problem Migraine without aura and without status migrainosus, not intractable G43.009 confirmed 750039247 Problem Allergic rhinitis, unspecified seasonality, unspecified trigger J30.9 confirmed 50294074 Problem Marijuana abuse F12.10 confirmed 81548116 Problem Intractable migraine with status migrainosus, unspecified migraine type G43.911 confirmed 471426734 Problem Tobacco use affecting in third trimester, antepartum O99.333 confirmed 096299364 Problem Seasonal allergies J30.2 confirmed 590212152 Problem Anxiety disorder, unspecified F41.9 confirmed 314798713 Problem Intractable epilepsy without status epilepticus, unspecified epilepsy type G40.919 confirmed 053179954 Problem Mild intermittent asthma with exacerbation J45.21 confirmed 304391239 Problem Abnormal menses N92.6 confirmed 437453935 Problem Tobacco use disorder F17.200 confirmed 053136593 Problem Tonsillar exudate J35.8 confirmed 185196198 ALLERGIES Allergen (clinical drug ingredient) Drug/Non Drug Allergy documented on EMR Reaction Allergy Type Onset Date Status Aura Unknown Drug Allergy Active amoxicillin Amoxicillin(ND Code:[address]-3 1) hives Drug Allergy Active Penicillin Unknown Drug Allergy Active aspirin Aspirin(ND Code:[address]-4 6) Unknown Drug Allergy Active Influenza Vac Split Quad rash Drug Allergy Active ZyrTEC([facility] Code:[address]-1 4) Unknown Drug Allergy Active carbamazepine Tegretol([facility] Code:[address]-4 3) Unknown Drug Allergy Active phenobarbital Phenobarbital([facility] Code:[address]-6 6) Unknown Drug Allergy Active codeine / guaifenesin Codeine-Guaifenes in shortness of breath Drug Allergy Active Keflex hives Drug Allergy Active valproate Depakote([facility] Code:[address]-1 3) Unknown Drug Allergy Active ENCOUNTERS from 1999 to 2022-11-27 Encounter Location Date Provider Diagnosis [facility] [id number] [place] [address] 11 Nov, 2020 PHANI SyedMPTIBURCIO Pain of finger of left hand M79.645 IMMUNIZATIONS Vaccine Route Administration Date Status hepatitis [...] Feb 04, 2020 Administered hib (history) Unknown Apr 18, 2000 [...] (history) Unknown May 12, 2018 Ad ministered PRIVATE TDAP (BOOSTRIX) IM Intramuscular Oct 06, 2022 Administered prevnar pcv 7 (history) Unknown Dec 15, 2000 Admi nistered dtap (history) Unknown June 13, 2000 Administere d dtap (history) Unknown Apr 18, 2000 Administered dtap (history) Unknown Feb 14, 2000 Administered PRIVATE FLULAVAL QUAD 0.5ML (6 MO AND UP) 2019 Unknown Nov 16, 2018 Refused prevnar pcv 7 (history) Unknown September 18, 2000 Adm inistered poliovirus unspecified (history) Unknown Feb 14, 2000 Administered prevnar pcv 7 (history) Unknown June 13, 2000 Ad ministered dtap (history) Unknown July 01, 2005 Administered prevnar pcv 7 (history) Unknown Apr 18, 2000 Admi nistered dtap (history) Unknown Mar 16, 2001 Administered mmr-II (history) Unknown July 01, 2005 [...] Once a day Active REASON FOR VISIT Xray (walk-in) MEDICAL (GENERAL) HISTORY Type Description Date [...] Notes Treatment Notes Treatment Clinical Notes Nov, Pain of finger of left hand (ICD-10 - M79.645) PLAN OF TREATMENT Next Appt Details Provider Name:RADHA ANNAMARIA, 2 02:00:00 PM, [address] , [place], [address], Provider Name:RADHA YIN, 2 02:20:00 PM, [address] [place], [address], Provider Name:RADHA YIN, 2 02:00:00 PM, [address] , [place], [address], Insurance Providers Payer Name Payer Address Payer Phone Insured Name Patient Relationship to Insured Coverage Start Date Coverage End Date Subscriber Number Group Number [facility] [facility] [address] [facility] [phone] [phone] Ana Ritter Self - patient is the insured [id number]
[2022-12-06] MEDS ORDERED: D5 LR 1,000 ML IV SOLN 1,000 ML IV ONE (08:25)
[2022-12-06 08:29] LABS: BASOPHILS % (AUTO) 0 % (0-10); EOSINOPHILS # (AUTO) 0.1 10^3/uL (0.0-0.3); EOSINOPHILS % (AUTO) 1 % (0-10); HEMATOCRIT 33 % (35-52); LYMPHOCYTES # (AUTO) 1.3 10^3/uL (1.0-4.0); LYMPHOCYTES % (AUTO) 22 % (12-44); MEAN CORPUSCULAR HEMOGLOBIN 27 pg (25-34); MEAN CORPUSCULAR HGB CONC 33 g/dL (32-36); MEAN CORPUSCULAR VOLUME 82 fL (80-99); MEAN PLATELET VOLUME 11.4 fL (9.0-12.2); MONOCYTES # (AUTO) 0.5 10^3/uL (0.0-1.0); MONOCYTES % (AUTO) 8 % (0-12); NEUTROPHILS % (AUTO) 68 % (42-75); PLATELET COUNT 188 10^3/uL (130-400); WHITE BLOOD COUNT 5.9 10^3/uL (4.3-11.0)
[2022-12-06] MEDS ORDERED: MINERAL OIL 30 ML UDC TOP PRN (08:30)
[2022-12-06] MEDS ORDERED: LACTATED RINGERS 1,000 ML 500 ML IV PRN (08:30)
[2022-12-06] MEDS: D5 LR 1,000 ML IV SOLN 1,000 ML IV SCH ×2 (08:31→16:05)
[2022-12-06 09:12] LABS: COLOR,URINE YELLOW
[2022-12-06 09:13] LABS: BILIRUBIN,URINE NEGATIVE (NEGATIVE); CLARITY,URINE CLOUDY; GLUCOSE, URINE (UA) NEGATIVE (NEGATIVE); KETONES,URINE NEGATIVE (NEGATIVE); LEUKOCYTE ESTERASE ,URINE TRACE (NEGATIVE); NITRITE,URINE NEGATIVE (NEGATIVE); PROTEIN,URINE NEGATIVE (NEGATIVE)
[2022-12-06 09:14] LABS: BACTERIA,URINE MODERATE /HPF; WBC,URINE 0-2 /HPF
[2022-12-06] MEDS ORDERED: OXYTOCIN DRIP PRE-MIX 500 ML IV ONE (09:35)
[2022-12-06] MEDS ORDERED: OXYTOCIN DRIP PRE-MIX 500 ML IV SCH (10:30)
[2022-12-06] MEDS ORDERED: fentaNYL 2 mcg/ml BUPIVA 0.125 100 ML ONE (12:59)
[2022-12-06] MEDS ORDERED: LACTATED RINGERS 1,000 ML 1,000 ML IV ONE ×3 (12:59→14:00)
[2022-12-06] MEDS ORDERED: BUPIVACAINE 0.25% 10 ML VIAL ONE (13:31)
[2022-12-06] MEDS ORDERED: fentaNYL INJECTION 100 MCG/2 ML VIAL ONE (13:31)
[2022-12-06] MEDS ORDERED: NALOXONE 0.4 MG/ML 1 ML VIAL IV PRN (14:00)
[2022-12-06] MEDS ORDERED: ONDANSETRON INJECTION 4 MG/2 ML (SDV) IV PRN (14:00)
[2022-12-06] MEDS ORDERED: fentaNYL 2 mcg/ml BUPIVA 0.125 100 ML EPI SCH (14:00)
[2022-12-06] MEDS ORDERED: CATHETER FLUSH 10 ML SYR IV SCH ×2 (14:00→22:00)
[2022-12-06] MEDS ORDERED: fentaNYL INJECTION 100 MCG/2 ML VIAL INJ ONE (14:00)
[2022-12-06] MEDS ORDERED: LIDOCAINE 2% w/EPI 1:200,000 20 ML VIAL ONE (19:21)
[2022-12-06] MEDS: OXYTOCIN DRIP PRE-MIX 500 ML IV SCH ×2 (20:02→20:41)
--- NOTE | 2022-12-06 20:18 | History & Physical-OB ---
OB - Chief Complaint & HPI Date/Time Date of Admission: Date of Admission: Dec 06, 2022 at 06:45 Date seen by a Provider: Dec 06, 2022 Time Seen by a Provider: 12:10 Chief Complaint/History OB-Reason for Admission/Chief: Induction of Labor Hx : 7 Hx Para: 2 Expected Date of Delivery: Dec 12, 2022 Gestational Age in Weeks: 39 Gestational Age in Days: 1 History of Labs O+, Ab neg, Rub Imm HIV/RPR/HepB/C NR normal 1 hr GTT GBS neg Allergies and Home Medications Allergies Coded Allergies: Penicillins (Verified Allergy, Severe, anaphylactic, 03/20/20) amoxicillin (Verified Allergy, Severe, anaphalytic, 03/20/20) cephalexin (Verified Allergy, Severe, anaphylatic , 03/20/20) cetirizine (Verified Allergy, Severe, seizures, 03/20/20) codeine (Verified Allergy, Severe, vomitting, chest pain, numbness, blurry vision, SOB, 03/20/20) divalproex sodium (Verified Allergy, Severe, Facial drooping, drooling, 03/20/20) fexofenadine (Verified Allergy, Severe, SEIZURES, 03/20/20) loratadine (Verified Allergy, Severe, seizures, 03/20/20) phenobarbital (Verified Allergy, Severe, Rash, vomitting, Seizures, 03/20/20) aspirin (Verified Allergy, Mild, hives, rash, 03/20/20) carbamazepine (Verified Allergy, Mild, hyperactivity, 03/20/20) cefaclor (Verified Allergy, Mild, vomitting, 03/20/20) povidone-iodine (Verified Allergy, Mild, rash, hives, 03/20/20) tramadol (Verified Allergy, Unknown, 03/20/20) Uncoded Allergies: VALPROATE (Allergy, Unknown, Unknown, 12/06/22) Patient Home Medication List Home Medication List Reviewed: Yes Vit W-Ca,Fe,FA(<1 mg) ( Formula) 1 Each Tablet, 1 EACH PO, (Reported) Entered as Reported by: ARMEN LOONEY on 03/04/20 9235 OB - History Hx of Present Care: Yes Ultrasounds: Normal mid trimester US Obstetrical Complications: None Information Induced Hypertension: No Maternal Gestational Diabetes: No Hemorrhage: No Obstetrical History Hx : 7 Hx Para: 2 Hx # Term Pregnancies: 2 Number of Living Children: 2 Hx Total # of Abortions (Spona: 4 Delivery History Hx Blood Disorders: No Adverse Rxn to Tranfusion: No Patient Past Medical History Tobacco Abuse Social History/Family History Smoking Cessation: Current every day smoker 2nd Hand Smoke Exposure: No Immunizations Influenza Vaccine Up-to-Date: No; Not Current Hepatitis A: Yes Hepatitis B: Yes Tetanus Booster (TDap): Less than 5yrs Rubella: immune RPR/VDRL: Negative GBS Status: Negative HBsAG: Negative OB - Admission Exam Physical Exam Vitals: Vital Signs 12/06/22 12/06/22 08:56 18:45 Temp 36.4 Pulse 85 Resp 20 B/P (MAP) 130/75 (93) Pulse Ox 99 O2 Delivery Room Air HEENT: NCAT Heart: Rhythm Normal Lungs: Clear Abdomen: Gravid Cervical Dilatation: 5cm Effacement: 75% Station: Ballotable Membranes: Intact Accelerations: Accelerations Present Decelerations: No Decelerations Short Term Variability: Present Group Home Variability: Average (6-25) Contractions on Admission: 6-10 Minutes Apart Denny Scoring Tool (Modified) Dilation (cm): 3-4cm (2) Effacement (%): 51-79% (2) Descent/Station: -2 (1) Cervix Consistency: Medium(1) Cervix Position: Posterior (0) Add 1 point for: Each previous vaginal delivery (1) Labs Laboratory Tests Test 12/06/22 08:25 12/06/22 08:47 Range/Units White Blood Count 5.9 4.3-11.0 10^3/uL Red Blood Count 4.04 3.80-5.11 10^6/uL Hemoglobin 11.0 L 11.5-16.0 g/dL Hematocrit 33 L 35-52 % Mean Corpuscular Volume 82 80-99 fL Mean Corpuscular Hemoglobin 27 25-34 pg Mean Corpuscular Hemoglobin Concent 33 32-36 g/dL Red Cell Distribution Width 14.9 H 10.0-14.5 % Platelet Count 188 130-400 10^3/uL Mean Platelet Volume 11.4 9.0-12.2 fL Immature Granulocyte % (Auto) 0 % Neutrophils (%) (Auto) 68 42-75 % Lymphocytes (%) (Auto) 22 12-44 % Monocytes (%) (Auto) 8 0-12 % Eosinophils (%) (Auto) 1 0-10 % Basophils (%) (Auto) 0 0-10 % Neutrophils # (Auto) 4.0 1.8-7.8 10^3/uL Lymphocytes # (Auto) 1.3 1.0-4.0 10^3/uL Monocytes # (Auto) 0.5 0.0-1.0 10^3/uL Eosinophils # (Auto) 0.1 0.0-0.3 10^3/uL Basophils # (Auto) 0.0 0.0-0.1 10^3/uL Immature Granulocyte # (Auto) 0.0 0.0-0.1 10^3/uL Syphilis Total Antibody Negative Negative Urine Color YELLOW Urine Clarity CLOUDY Urine pH 7.0 5-9 Urine Specific [place] 1.015 L 1.016-1.022 Urine Protein NEGATIVE NEGATIVE Urine Glucose (UA) NEGATIVE NEGATIVE Urine Ketones NEGATIVE NEGATIVE Urine Nitrite NEGATIVE NEGATIVE Urine Bilirubin NEGATIVE NEGATIVE Urine Urobilinogen 0.2 < = 1.0 MG/DL Urine Leukocyte Esterase TRACE H NEGATIVE Urine RBC (Auto) NEGATIVE NEGATIVE Urine RBC NONE /HPF Urine WBC 0-2 /HPF Urine Squamous Epithelial Cells 10-25 H /HPF Urine Crystals NONE /LPF Urine Bacteria MODERATE H /HPF Urine Casts NONE /LPF Urine Mucus NEGATIVE /LPF Urine Culture Indicated YES OB - Assessment/Plan/Diagnosis Assessment Assessment: induction of labor Admission Dx Third Trimester 39 weeks gestation Tobacco use in Admission Status: Inpatient Order (span 2 midnights) Reason for Inpatient Admission: Labor and post care Plan Other Plan 21 yo @ 39.2 wga here for elective IOL Plan - Expectant management - GBS neg - Still bloatable, will start pitocin protocol RADHA YIN MD Dec 06, 2022 20:18
--- NOTE | 2022-12-06 20:23 | OB Labor & Delivery Record ---
Vag Delivery Note Vag Delivery Note Date of Delivery: 12/06/22 Preoperative Diagnosis: Grant Ritter is a (21 /Para / ,Gestational Age (wks)39.2 wga here for elective IOL Postoperative Diagnosis: Same Attending Surgeon/Physician: Radha Bates MD Clerical Specialist: Yadiel Kellogg MS4 Anesthesia: Epidural Delivery Type: @ 194 Findings: Viable female infant, apgars 7/8, weight 7#3, 3270 grams Lacerations: periurethral abrasions Intact placenta with 3 vessel cord. Nuchal cord x 2 (delivered thru) No body cord or shoulder dystocia Estimated Blood Loss: 150 ml Complications: None Condition: Stable Description of Procedure: The patient is a 21 year old female who presented for elective IOL. She was a dmitted and informed consent was obtained. Her labor course was remarkable for pitocin induction and meconium stained fluid. She progressed to complete dilatation and began to push. She was then set up for delivery. The 's head was delivered atraumatically in the YENNY position. Attempted to reduced nuchal cord at perinium and unable to. delivered thru and nuchal reduced after delivery of body. The shoulders and remainder of the infant's body were then delivered without difficulty. Upon delivery, the was vigorous and placed on maternal chest and the mouth and nares were bulb suctioned. After a 2 min delay cord was doubly clamped and cut and the remained on maternal chest, was then taken to warmer for CPT and suction. An intact placenta with 3-vessel cord delivered via Sae and there was found to be minimal bleeding.~ Vigorous fundal massage was performed and the fundus was found to be firm. IV oxytocin was given. Examination of the vagina and perineum revealed no lacerations that required repair. Following the repair, sponge, instrument and needle counts were correct. Mom and baby were both in stable condition in the labor suite. Vitals - Labs Vital Signs - I&O Vital Signs Date Time Temp Pulse Resp B/P (MAP) Pulse Ox O2 Delivery O2 Flow Rate FiO2 12/06/22 18:45 85 20 130/75 (93) 99 Room Air 12/06/22 18:30 85 20 118/80 (93) 99 Room Air 12/06/22 18:15 85 20 122/77 (92) 99 Room Air 12/06/22 18:00 84 20 120/84 (96) 97 Room Air 12/06/22 17:45 85 20 122/78 (93) 100 Room Air 12/06/22 17:30 88 20 114/69 (84) 99 Room Air 12/06/22 17:15 104 20 129/73 (91) 99 Room Air 12/06/22 17:00 78 18 130/81 (97) 100 Room Air 12/06/22 16:45 73 18 128/81 (97) 98 Room Air 12/06/22 16:30 71 18 123/87 (99) 98 Room Air 12/06/22 16:15 63 18 110/59 (76) 97 Room Air 12/06/22 16:00 63 18 110/59 (76) 97 Room Air 12/06/22 15:45 63 18 101/59 (73) 98 Room Air 12/06/22 15:30 74 18 108/59 (75) 99 Room Air 12/06/22 15:15 86 18 98 12/06/22 15:00 74 18 107/66 (80) 96 Room Air 12/06/22 14:45 73 18 113/72 (86) 97 Room Air 12/06/22 14:30 68 18 115/67 (83) 99 Room Air 12/06/22 14:15 75 18 117/69 (85) 98 Room Air 12/06/22 14:00 94 18 117/64 (81) 96 Room Air 12/06/22 13:45 90 18 128/83 (98) 99 Room Air 12/06/22 13:30 81 18 135/82 (99) 98 Room Air 12/06/22 13:15 76 18 140/85 (103) 99 Room Air 12/06/22 13:00 74 18 132/86 (101) 98 Room Air 12/06/22 12:45 78 18 126/81 (96) 98 Room Air 12/06/22 12:30 77 18 134/80 (98) 98 Room Air 12/06/22 12:15 86 18 123/71 (88) 98 Room Air 12/06/22 12:00 82 18 117/67 (84) 98 Room Air 12/06/22 11:45 71 18 119/67 (84) 98 Room Air 12/06/22 11:30 83 18 128/82 (97) 98 Room Air 12/06/22 11:15 79 18 130/75 (93) 99 Room Air 12/06/22 11:00 85 18 126/84 (98) 99 Room Air 12/06/22 10:30 90 18 125/84 (98) 98 Room Air 12/06/22 10:20 85 18 132/87 (102) 98 Room Air 12/06/22 08:56 36.4 97 20 98 Room Air Labs Laboratory Tests 12/06/22 08:25: White Blood Count 5.9, Red Blood Count 4.04, Hemoglobin 11.0L, Hematocrit 33L, Mean Corpuscular Volume 82, Mean Corpuscular Hemoglobin 27, Mean Corpuscular Hemoglobin Concent 33, Red Cell Distribution Width 14.9H, Platelet Count 188, Mean Platelet Volume 11.4, Immature Granulocyte % (Auto) 0, Neutrophils (%) (Auto) 68, Lymphocytes (%) (Auto) 22, Monocytes (%) (Auto) 8, Eosinophils (%) (Auto) 1, Basophils (%) (Auto) 0, Neutrophils # (Auto) 4.0, Lymphocytes # (Auto) 1.3, Monocytes # (Auto) 0.5, Eosinophils # (Auto) 0.1, Basophils # (Auto) 0.0, Immature Granulocyte # (Auto) 0.0, Syphilis Total Antibody Negative 12/06/22 08:47: Urine Color YELLOW, Urine Clarity CLOUDY, Urine pH 7.0, Urine Specific [place] 1.015L, Urine Protein NEGATIVE, Urine Glucose (UA) NEGATIVE, Urine Ketones NEGATIVE, Urine Nitrite NEGATIVE, Urine Bilirubin NEGATIVE, Urine Urobilinogen 0.2, Urine Leukocyte Esterase TRACEH, Urine RBC (Auto) NEGATIVE, Urine RBC NONE, Urine WBC 0-2, Urine Squamous Epithelial Cells 10-25H, Urine Crystals NONE, Ur ine Bacteria MODERATEH, Urine Casts NONE, Urine Mucus NEGATIVE, Urine Culture Indicated YES RADHA BATES MD Dec 06, 2022 20:23
[2022-12-06] MEDS ORDERED: WITCH HAZEL(TUCKS) 40 EA JAR TOP PRN (20:30)
[2022-12-06] MEDS ORDERED: BENZOCAINE/MENTHOL (DERMOPLAST) 56 ML CAN TP PRN (20:30)
[2022-12-06] MEDS: IBUPROFEN 600 MG TABLET PO SCH (22:46)
[2022-12-06] MEDS: DOCUSATE SODIUM 100 MG CAPSULE PO SCH (22:46)
[2022-12-06] MEDS: ACETAMINOPHEN 500 MG TABLET PO SCH (22:46)
[2022-12-07 00:45] VITALS: BP 120/72
[2022-12-07 03:53] VITALS: BP 113/79
[2022-12-07] MEDS: IBUPROFEN 600 MG TABLET PO SCH ×3 (03:53→16:00)
[2022-12-07] MEDS: ACETAMINOPHEN 500 MG TABLET PO SCH ×3 (04:51→16:00)
[2022-12-07 06:02] LABS: BASOPHILS % (AUTO) 0 % (0-10); EOSINOPHILS % (AUTO) 1 % (0-10); HEMATOCRIT 28 % (35-52); HEMOGLOBIN 9.3 g/dL (11.5-16.0); LYMPHOCYTES # (AUTO) 1.3 10^3/uL (1.0-4.0); LYMPHOCYTES % (AUTO) 19 % (12-44); MEAN CORPUSCULAR HEMOGLOBIN 27 pg (25-34); MEAN CORPUSCULAR HGB CONC 33 g/dL (32-36); MEAN CORPUSCULAR VOLUME 82 fL (80-99); MONOCYTES # (AUTO) 0.5 10^3/uL (0.0-1.0); MONOCYTES % (AUTO) 7 % (0-12); NEUTROPHILS # (AUTO) 5.1 10^3/uL (1.8-7.8); NEUTROPHILS % (AUTO) 73 % (42-75); PLATELET COUNT 140 10^3/uL (130-400)
[2022-12-07] MEDS ORDERED: PRENATAL VITAMIN TABLET PO SCH (07:00)
--- NOTE | 2022-12-07 09:02 | Postpartum Progress Note ---
Note Note Day # 1 Subjective: Patient is without complaints. Ambulating, voiding. Tolerating a regular diet without nausea or vomiting. Normal lochia. Pain is well controlled with oral pain medications. Breast feeding. Objective: Vital Signs 12/07/22 03:53 Temp 37.0 Pulse 73 Resp 18 B/P (MAP) 113/79 (90) Pulse Ox 97 O2 Delivery Room Air Physical Exam: General - Alert and oriented, no apparent distress Lungs - CTAB Heart - RRR, no murmur Abdomen - Soft, appropriately tender to palpation, non-distended, fundus firm at umbilicus Extremities - no edema Assessment: post- day # 1, status post spontaneous vaginal delivery. Recovering well, hemodynamically stable Plan: Routine care. Encourage breast feeding. Encourage ambulation. Ferrous sulfate supplementation. Patient requesting discharge at 24 hours, will monitor closely through today. Vitals - Labs Vital Signs - I&O Vital Signs Date Time Temp Pulse Resp B/P (MAP) Pulse Ox O2 Delivery O2 Flow Rate FiO2 12/07/22 03:53 37.0 73 18 113/79 (90) 97 Room Air 12/07/22 00:45 36.8 88 18 120/72 (88) 98 Room Air 12/06/22 22:30 82 18 133/61 (85) Room Air 12/06/22 22:00 36.6 83 18 121/76 (91) Room Air 12/06/22 21:30 77 18 118/73 (88) Room Air 12/06/22 21:00 36.4 86 20 113/73 (86) Room Air 12/06/22 20:45 78 18 120/86 (97) Room Air 12/06/22 20:30 36.3 78 20 120/72 (88) Room Air 12/06/22 20:15 36.8 83 18 126/78 (94) Room Air 12/06/22 20:00 75 20 117/74 (88) Room Air 12/06/22 19:49 37.0 94 18 131/64 (86) Room Air 12/06/22 19:30 36.9 100 20 124/80 (95) 99 Room Air 12/06/22 19:15 73 20 129/80 (96) 99 Room Air 12/06/22 18:45 85 20 130/75 (93) 99 Room Air 12/06/22 18:30 85 20 118/80 (93) 99 Room Air 12/06/22 18:15 85 20 122/77 (92) 99 Room Air 12/06/22 18:00 84 20 120/84 (96) 97 Room Air 12/06/22 17:45 85 20 122/78 (93) 100 Room Air 12/06/22 17:30 88 20 114/69 (84) 99 Room Air 12/06/22 17:15 104 20 129/73 (91) 99 Room Air 12/06/22 17:00 78 18 130/81 (97) 100 Room Air 12/06/22 16:45 73 18 128/81 (97) 98 Room Air 12/06/22 16:30 71 18 123/87 (99) 98 Room Air 12/06/22 16:15 63 18 110/59 (76) 97 Room Air 12/06/22 16:00 63 18 110/59 (76) 97 Room Air 12/06/22 15:45 63 18 101/59 (73) 98 Room Air 12/06/22 15:30 74 18 108/59 (75) 99 Room Air 12/06/22 15:15 86 18 98 12/06/22 15:00 74 18 107/66 (80) 96 Room Air 12/06/22 14:45 73 18 113/72 (86) 97 Room Air 12/06/22 14:30 68 18 115/67 (83) 99 Room Air 12/06/22 14:15 75 18 117/69 (85) 98 Room Air 12/06/22 14:00 94 18 117/64 (81) 96 Room Air 12/06/22 13:45 90 18 128/83 (98) 99 Room Air 12/06/22 13:30 81 18 135/82 (99) 98 Room Air 12/06/22 13:15 76 18 140/85 (103) 99 Room Air 12/06/22 13:00 74 18 132/86 (101) 98 Room Air 12/06/22 12:45 78 18 126/81 (96) 98 Room Air 12/06/22 12:30 77 18 134/80 (98) 98 Room Air 12/06/22 12:15 86 18 123/71 (88) 98 Room Air 12/06/22 12:00 82 18 117/67 (84) 98 Room Air 12/06/22 11:45 71 18 119/67 (84) 98 Room Air 12/06/22 11:30 83 18 128/82 (97) 98 Room Air 12/06/22 11:15 79 18 130/75 (93) 99 Room Air 12/06/22 11:00 85 18 126/84 (98) 99 Room Air 12/06/22 10:30 90 18 125/84 (98) 98 Room Air 12/06/22 10:20 85 18 132/87 (102) 98 Room Air I & O 12/07/22 07:00 Intake Total 1715 ml Output Total 0 ml Balance 1715 ml Labs Laboratory Tests 12/07/22 05:40: White Blood Count 7.0, Red Blood Count 3.47L, Hemoglobin 9.3L, Hematocrit 28L, Mean Corpuscular Volume 82, Mean Corpuscular Hemoglobin 27, Mean Corpuscular Hemoglobin Concent 33, Red Cell Distribution Width 14.7H, Platelet Count 140, Mean Platelet Volume 11.0, Immature Granulocyte % (Auto) 0, Neutrophils (%) (Auto) 73, Lymphocytes (%) (Auto) 19, Monocytes (%) (Auto) 7, Eosinophils (%) (Auto) 1, Basophils (%) (Auto) 0, Neutrophils # (Auto) 5.1, Lymphocytes # (Auto) 1.3, Monocytes # (Auto) 0.5, Eosinophils # (Auto) 0.0, Basophils # (Auto) 0.0, Immature Granulocyte # (Auto) 0.0 MORENA MORALES MD Dec 07, 2022 09:02
[2022-12-07] MEDS ORDERED: FERR325T18 PO (09:05)
[2022-12-07] MEDS ORDERED: DOCU100C37 PO (09:05)
[2022-12-07] MEDS ORDERED: IBUP-844 PO (09:05)
[2022-12-07 10:26] VITALS: BP 120/82
[2022-12-07] MEDS: DOCUSATE SODIUM 100 MG CAPSULE PO SCH (10:27)
[2022-12-07 14:59] VITALS: BP 118/73
[2022-12-07 18:35] VITALS: BP 128/87
== END 2022-12-07 21:15 | disposition home or self-care (01) | DRG 807 ==
LOC: LDRP 06:45
PROVIDERS: ADMIT Family Medicine; ATTEND Family Medicine
PROC: 10E0XZZ Delivery of Products of Conception, External Approach (ICD-10-PCS; principal; 2022-12-06)
PROC: 3E033VJ Introduction of Other Hormone into Peripheral Vein, Percutaneous Approach (ICD-10-PCS; 2022-12-06)
DX: O99.334 Smoking (tobacco) complicating childbirth (principal); Z37.0 Single live birth; F17.290 Nicotine dependence, other tobacco product, uncomplicated; Z3A.39 39 weeks gestation of pregnancy; O77.0 Labor and delivery complicated by meconium in amniotic fluid; O69.81X0 Labor and delivery complicated by cord around neck, without compression, not applicable or unspecified; O71.82 Other specified trauma to perineum and vulva
CPT/HCPCS: 36415; 81000; 85025; 86780; 86850; 86900; 86901; 87088

== ENCOUNTER 2022-12-11 14:59 | Emergency (ER) | payer MEDICAID ==
[~2022-12-11] VITALS: Ht 172.8 cm; Wt 86.2 kg
[2022-12-11 15:08] VITALS: BP 124/78
--- NOTE | 2022-12-11 15:26 | ED Abdominal Pain ---
General Chief Complaint: Abdominal/GI Problems Stated Complaint: LOWER ABD PAIN Source of Information: Patient Exam Limitations: No Limitations History of Present Illness Date Seen by Provider: Dec 11, 2022 Time Seen by Provider: 15:07 Initial Comments 21-year-old 5-day female presents to the ER with complaint of lower abdominal pain and cramping. She reports the pain in her lower abdomen is worse when she is having a bowel movement. Found to have a low-grade fever here and tachycardia. Denies nausea, vomiting, diarrhea, dysuria. Reports vaginal bleeding, denies vaginal discharge. She had a vaginal delivery, states that they had difficulty removing the entire placenta, but they believe that they were able to remove it all. Allergies and Home Medications Allergies Coded Allergies: Penicillins (Verified Allergy, Severe, anaphylactic, 03/20/20) amoxicillin (Verified Allergy, Severe, anaphalytic, 03/20/20) cephalexin (Verified Allergy, Severe, anaphylatic , 03/20/20) cetirizine (Verified Allergy, Severe, seizures, 03/20/20) codeine (Verified Allergy, Severe, vomitting, chest pain, numbness, blurry vision, SOB, 03/20/20) divalproex sodium (Verified Allergy, Severe, Facial drooping, drooling, 03/20/20) fexofenadine (Verified Allergy, Severe, SEIZURES, 03/20/20) loratadine (Verified Allergy, Severe, seizures, 03/20/20) phenobarbital (Verified Allergy, Severe, Rash, vomitting, Seizures, 03/20/20) aspirin (Verified Allergy, Mild, hives, rash, 03/20/20) carbamazepine (Verified Allergy, Mild, hyperactivity, 03/20/20) cefaclor (Verified Allergy, Mild, vomitting, 03/20/20) povidone-iodine (Verified Allergy, Mild, rash, hives, 03/20/20) tramadol (Verified Allergy, Unknown, 03/20/20) Uncoded Allergies: VALPROATE (Allergy, Unknown, Unknown, 12/06/22) Patient Home Medication List Home Medication List Reviewed: Yes Docusate Sodium (Docusate Sodium) 100 Mg Capsule, 100 MG PO BID Prescribed by: MORENA MORALES on 12/07/22 0905 Ferrous Sulfate (Ferrous Sulfate) 325 Mg (65 Mg Iron) Tablet, 325 MG PO DAILY Prescribed by: MORENA MORALES on 12/07/22 09 Ibuprofen (Ibu) 600 Mg Tablet, 600 MG PO Q6H PRN for PAIN-MODERATE (5-7) Prescribed by: MORENA MORALES on 12/07/22 09 Vit W-Ca,Fe,FA(<1 mg) ( Formula) 1 Each Tablet, 1 EACH PO, (Reported) Entered as Reported by: ARMEN LOONEY on 03/04/20 2247 Sulfamethoxazole/Trimethoprim (Bactrim Ds Tablet) 1 Each Tablet, 1 EACH PO BID Prescribed by: Paulina Maria on 12/11/22 1736 Review of Systems Review of Systems Constitutional: see HPI Past [id number]-[id number] Hx Patient Social History Tobacco Use?: No Use of E-Cig and/or Vaping dev: Yes Substance use?: No Alcohol Use?: No Pt feels they are or have been: No Immunizations Up To Date Tetanus Booster (TDap): Less than 5yrs PED Vaccines UTD: Yes Seasonal Allergies Seasonal Allergies: No Past Medical History Surgery/Hospitalization HX: seizures, radha, t/a, bmt Surgeries: Yes (TUBES IN EARS-"TOO MANY TO COUNT") Adenoidectomy, Ear Surgery, Gallbladder, Tonsillectomy Respiratory: Yes Asthma Cardiac: Yes Irregular Heartbeat Neurological: Yes Headaches /Migraines, Seizure Disorder Reproductive Disorders: Yes Female Reproductive Disorders: Menstrual Problems Sexually Transmitted Disease: No HIV/AIDS: No Genitourinary: Yes UTI-Chronic Gastrointestinal: Yes Chronic Diarrhea Musculoskeletal: Yes Back Injury, Chronic Back Pain Endocrine: No HEENT: Yes (MULTIPLE SETS OF BMT'S; T&A) Chronic Ear Infection, Tonsilitis Loss of Vision: Denies Hearing Impairment: Denies Cancer: No Psychosocial: Yes Anxiety, Bipolar, Depression Integumentary: Yes Eczema Blood Disorders: No Adverse Reaction/Blood Tranf: No Family Medical History Arthritis 19 MOTHER Asthma 19 MOTHER FH: diverticulitis 19 MOTHER FHx: supraventricular tachycardia 19 MOTHER Hypertension 19 MOTHER Physical Exam Vital Signs Vital Signs - First Documented 12/11/22 15:08 Temp 37.8 Pulse 121 Resp 20 B/P (MAP) 124/78 (93) Pulse Ox 97 O2 Delivery Room Air Capillary Refill : Height/Weight/BMI Height: 5'7.00" Weight: 153lbs. 8.0oz. [id number]; 30.98 BMI Method:Stated General Appearance: WD/WN, mild distress Neck: supple, normal inspection Respiratory: lungs clear, normal breath sounds, no respiratory distress, no accessory muscle use Cardiovascular: regular rate, rhythm Gastrointestinal: normal bowel sounds, non tender; No guarding, No rebound; tenderness (Generalized lower abdominal tenderness) Extremities: normal range of motion, normal inspection Pelvic: normal external exam; No discharge; vaginal bleeding Neurologic/Psychiatric: alert, normal mood/affect Skin: normal color, warm/dry Focused Exam Lactate Level 12/11/22 15:26: Lactic Acid Level 1.62 Lactic Acid Level Laboratory Tests Test 12/11/22 15: Lactic Acid Level 1.62 MMOL/L (0.50-2.00) Progress/Results/Core Measures Results/Orders Lab Results Laboratory Tests Test 12/11/22 15:26 12/11/22 16:00 Range/Units White Blood Count 11.2 H 4.3-11.0 10^3/uL Red Blood Count 4.22 3.80-5.11 10^6/uL Hemoglobin 11.2 #L 11.5-16.0 g/dL Hematocrit 36 35-52 % Mean Corpuscular Volume 85 80-99 fL Mean Corpuscular Hemoglobin 27 25-34 pg Mean Corpuscular Hemoglobin Concent 31 L 32-36 g/dL Red Cell Distribution Width 15.1 H 10.0-14.5 % Platelet Count 191 130-400 10^3/uL Mean Platelet Volume 10.4 9.0-12.2 fL Immature Granulocyte % (Auto) 1 % Neutrophils (%) (Auto) 93 H 42-75 % Lymphocytes (%) (Auto) 3 L 12-44 % Monocytes (%) (Auto) 3 0-12 % Eosinophils (%) (Auto) 0 0-10 % Basophils (%) (Auto) 0 0-10 % Neutrophils # (Auto) 10.4 H 1.8-7.8 10^3/uL Lymphocytes # (Auto) 0.3 L 1.0-4.0 10^3/uL Monocytes # (Auto) 0.3 0.0-1.0 10^3/uL Eosinophils # (Auto) 0.0 0.0-0.3 10^3/uL Basophils # (Auto) 0.0 0.0-0.1 10^3/uL Immature Granulocyte # (Auto) 0.1 0.0-0.1 10^3/uL Neutrophils % (Manual) 84 % Lymphocytes % (Manual) 4 % Monocytes % (Manual) 3 % Metamyelocytes % 1 % Band Neutrophils 8 % Platelet Estimate ADEQUATE Poikilocytosis SLIGHT Prothrombin Time 12.9 12.2-14.7 SEC INR Comment 1.0 0.8-1.4 Activated Partial Thromboplast Time 32 24-35 SEC Sodium Level 138 135-145 MMOL/L Potassium Level 3.6 3.6-5.0 MMOL/L Chloride Level 107 98-107 MMOL/L Carbon Dioxide Level 17 L 21-32 MMOL/L Anion Gap 14 5-14 MMOL/L Blood Urea Nitrogen 8 7-18 MG/DL Creatinine 0.64 0.60-1.30 MG/DL Estimat Glomerular Filtration Rate 128 BUN/Creatinine Ratio 13 Glucose Level 104 70-105 MG/DL Lactic Acid Level 1.62 0.50-2.00 MMOL/L Calcium Level 8.4 L 8.5-10.1 MG/DL Corrected Calcium 8.8 8.5-10.1 MG/DL Total Bilirubin 0.4 0.1-1.0 MG/DL Aspartate Amino Transf (AST/SGOT) 20 5-34 U/L Alanine Aminotransferase (ALT/SGPT) 13 0-55 U/L Alkaline Phosphatase 134 40-136 U/L C-Reactive Protein High Sensitivity 7.81 H 0.00-0.50 MG/DL Total Protein 6.7 6.4-8.2 GM/DL Albumin 3.5 3.2-4.5 GM/DL Urine Color YELLOW Urine Clarity CLOUDY Urine pH 6.0 5-9 Urine Specific [place] 1.015 L 1.016-1.022 Urine Protein 1+ H NEGATIVE Urine Glucose (UA) NEGATIVE NEGATIVE Urine Ketones NEGATIVE NEGATIVE Urine Nitrite NEGATIVE NEGATIVE Urine Bilirubin NEGATIVE NEGATIVE Urine Urobilinogen 0.2 < = 1.0 MG/DL Urine Leukocyte Esterase 1+ H NEGATIVE Urine RBC (Auto) 3+ H NEGATIVE Urine RBC 25-50 H /HPF Urine WBC 10-25 H /HPF Urine Squamous Epithelial Cells 10-25 H /HPF Urine Crystals PRESENT H /LPF Urine Amorphous Sediment RARE MARGARITA URATES H /LPF Urine Bacteria TRACE /HPF Urine Casts NONE /LPF Urine Mucus LARGE H /LPF Urine Culture Indicated YES My Orders Orders - PAULINA ROSS APRN Ua Culture If Indicated (12/11/22 15:07) Cbc And Automated Diff (12/11/22 15:20) Comprehensive Metabolic Panel (12/11/22 15:20) Blood Culture (12/11/22 15:20) Protime With Inr (12/11/22 15:20) Partial Thromboplastin Time (12/11/22 15:20) Ed Iv/Invasive Line Start (12/11/22 15:20) Vital Signs Adult Sepsis Patie Q15M (12/11/22 15:20) Remove Rings In Anticipation O (12/11/22 15:20) Lactic Acid Analyzer (12/11/22 15:20) Ns Iv 1000 Ml (Ns Iv 1000 Ml) (12/11/22 15:30) Hs C Reactive Protein (12/11/22 15:29) Ns Iv 1000 Ml (Ns Iv 1000 Ml) (12/11/22 15:45) Manual Differential (12/11/22 15:26) Urine Culture (12/11/22 16:00) Sulfamethoxazole/Tmp Ds Tablet (Sulfamet (12/11/22 16:45) Acetaminophen Tablet (Acetaminophen Ta (12/11/22 17:15) Medications Given in ED Current Medications Medications Dose Ordered Sig/She Route Start Time Stop Time Status Last Admin Dose Admin Acetaminophen 1,000 mg ONCE ONCE PO 12/11/22 17:15 12/11/22 17:16 DC 12/11/22 17:17 1,000 MG Trimethoprim/ Sulfamethoxazole 1 ea ONCE ONCE PO 12/11/22 16:45 12/11/22 16:46 DC 12/11/22 17:11 1 EA Vital Signs/I&O 12/11/22 15:08 Temp 37.8 Pulse 121 Resp 20 B/P (MAP) 124/78 (93) Pulse Ox 97 O2 Delivery Room Air Progress Progress Note : Progress Note Patient seen and evaluated, resting in bed, mild distress. Based on exam and symptoms, septic work-up initiated including CBC, CMP, coags, lactic acid, blood cultures x2, urinalysis. IV fluids ordered. Will perform a pelvic exam. Labs reviewed. CBC shows WBC 11.2, neutrophil percentage elevated 93. CMP shows decreased CO2 17. CRP 7.81. Lactic acid normal. Coags normal. Urinalysis shows 1+ leukocytes, 3+ RBCs, 10-25 WBCs, 10-25 squamous epithelial cells, trace bacteria. Pelvic exam performed, no evidence of endometritis. Abdominal pain, fever, tachycardia likely related to pyelonephritis. Patient has several antibiotic allergies, Bactrim ordered for pyelonephritis. Patient wants to leave, patient is still tachycardic after a liter and half of fluid. Heart rate fluctuates between 110 and mid 120s. Patient encouraged to stay to see if we can improve heart rate prior to discharge. Tachycardia may be related to pain and anxiety. Patient has been crying in the room most of the time that she has been here. She is also complaining of back pain, I offered pain medication several times, patient declined. Patient is adamant on leaving. Patient will sign out AMA. Risks of leaving AMA discussed with patient including decompensation and . She verbalized understanding. Will provide discharge instructions and prescription for antibiotic. Patient directed to follow-up with her OB, Dr. Bates, this week to call Dr. Bates tomorrow. Patient encouraged to return if she does not get better or gets worse. Departure Impression Primary Impression: Pyelonephritis Disposition: AGAINST MEDICAL ADVICE Condition: Stable Departure-Patient Inst. Referrals: ABDIEL HOFFMANN APRN (PCP/Family) Primary Care Physician Patient Instructions: Kidney Infection Add. Discharge Instructions: Complete full course of antibiotic as prescribed. Call Dr. Bates tomorrow to schedule a follow-up appointment for this week. Return if your symptoms do not get better, or any other new, concerning, or worsening symptoms. All discharge instructions reviewed with patient and/or family. Voiced understanding. Scripts Sulfamethoxazole/Trimethoprim (Bactrim Ds Tablet) 1 Each Tablet 1 EACH PO BID for 14 Days, #28 TAB 0 Refills Prov: PAULINA ROSS APRN 12/11/22 PAULINA ROSS APRN Dec 11, 2022 15:26
[2022-12-11] MEDS ORDERED: NS IV 1000 ML 1,000 ML IV SCH ×2 (15:30→15:45)
[2022-12-11 15:41] LABS: BASOPHILS % (AUTO) 0 % (0-10); EOSINOPHILS % (AUTO) 0 % (0-10); HEMATOCRIT 36 % (35-52); HEMOGLOBIN 11.2 g/dL (11.5-16.0); LYMPHOCYTES # (AUTO) 0.3 10^3/uL (1.0-4.0); LYMPHOCYTES % (AUTO) 3 % (12-44); MEAN CORPUSCULAR HEMOGLOBIN 27 pg (25-34); MEAN CORPUSCULAR HGB CONC 31 g/dL (32-36); MEAN CORPUSCULAR VOLUME 85 fL (80-99); MEAN PLATELET VOLUME 10.4 fL (9.0-12.2); MONOCYTES # (AUTO) 0.3 10^3/uL (0.0-1.0); MONOCYTES % (AUTO) 3 % (0-12); NEUTROPHILS # (AUTO) 10.4 10^3/uL (1.8-7.8); NEUTROPHILS % (AUTO) 93 % (42-75); PLATELET COUNT 191 10^3/uL (130-400); WHITE BLOOD COUNT 11.2 10^3/uL (4.3-11.0)
[2022-12-11 15:54] LABS: ALBUMIN 3.5 GM/DL (3.2-4.5); POTASSIUM 3.6 MMOL/L (3.6-5.0)
[2022-12-11 15:55] LABS: CALCIUM 8.4 MG/DL (8.5-10.1)
[2022-12-11 15:57] LABS: TOTAL PROTEIN 6.7 GM/DL (6.4-8.2)
[2022-12-11 15:58] LABS: BILIRUBIN,TOTAL 0.4 MG/DL (0.1-1.0)
[2022-12-11 16:00] LABS: CREATININE SERUM 0.64 MG/DL (0.60-1.30)
[2022-12-11 16:02] LABS: PROTHROMBIN TIME PATIENT 12.9 SEC (12.2-14.7)
[2022-12-11 16:30] LABS: BACTERIA,URINE TRACE /HPF; BILIRUBIN,URINE NEGATIVE (NEGATIVE); CLARITY,URINE CLOUDY; COLOR,URINE YELLOW; GLUCOSE, URINE (UA) NEGATIVE (NEGATIVE); KETONES,URINE NEGATIVE (NEGATIVE); LEUKOCYTE ESTERASE ,URINE 1+ (NEGATIVE); NITRITE,URINE NEGATIVE (NEGATIVE); PROTEIN,URINE 1+ (NEGATIVE); RBC,URINE 25-50 /HPF
[2022-12-11 16:31] LABS: AMORPHOUS SEDIMENT,UR RARE AMOR URATES /LPF
[2022-12-11] MEDS ORDERED: Sulfamethoxazole/Trimethoprim DS TABLET PO ONE (16:45)
[2022-12-11 17:05] LABS: BAND NEUTROPHILS 8 %; LYMPHOCYTES % (MANUAL) 4 %; METAMYELOCYTES % 1 %; MONOCYTES % (MANUAL) 3 %; NEUTROPHILS % (MANUAL) 84 %
[2022-12-11 17:06] LABS: PLATELET ESTIMATE ADEQUATE; POIKILOCYTOSIS SLIGHT
[2022-12-11] MEDS ORDERED: ACETAMINOPHEN 500 MG TABLET PO ONE (17:15)
[2022-12-11] MEDS ORDERED: SULF1TAB38 PO (17:36)
== END 2022-12-11 17:50 | disposition left against medical advice (07) ==
LOC: EDUNIT# 14:59 → ER 15:01
DX: O86.21 Infection of kidney following delivery (principal); O99.893 Other specified diseases and conditions complicating puerperium; R00.0 Tachycardia, unspecified; O99.335 Smoking (tobacco) complicating the puerperium; F17.290 Nicotine dependence, other tobacco product, uncomplicated; Z88.0 Allergy status to penicillin
CPT/HCPCS: 36415; 80053; 81000; 83605; 85007; 85027; 85610; 85730; 86141; 87040; 87088